=== PATIENT | male | born 1965 | race Caucasian/White ===

== ENCOUNTER → 2018-03-30 09:01 | Outpatient (CLI) | payer BC, SELFPAY ==
[2018-03-30 09:54] LABS: BUN 23 mg/dL (7-18); EST Glomerular Filtration Rate 74 mL/min (>60); Est Glom Filt Rate - Afr Amer 90 mL/min (>60)
== END ==
PROVIDERS: Family Provider Family Medicine; PCP Family Medicine; Visit Provider Otolaryngology
DX: E03.9 Hypothyroidism, unspecified (principal); C10.9 Malignant neoplasm of oropharynx, unspecified; R53.82 Chronic fatigue, unspecified; R63.4 Abnormal weight loss; R13.10 Dysphagia, unspecified
CPT/HCPCS: 36415; 82565; 84520

== ENCOUNTER 2018-06-11 19:15 | Emergency (ER) | payer BC, SELFPAY ==
[2018-06-11 19:16] VITALS: BP 126/93; PULSE 94; RESP 20; TEMP 37.4; O2SAT 90; BMI 20.7
--- NOTE | 2018-06-11 20:05 | CT_ITS ---
STUDY: CTA CHEST REASON FOR EXAM: Male, 53 years old. Right-sided chest pain, status post resection one month ago RADIATION DOSAGE (If Supplied By Facility): CTDIvol = ( 9.43 ) mGy, DLP = ( 450.31 ) mGycm TECHNIQUE: The examination was performed with the intravenous administration of 100 ml of Isovue 370 contrast material. Post-processing of the angiographic images was performed, with multiplanar reformation and 3D reconstruction. Individualized dose optimization techniques were used for this CT. COMPARISON: None. FINDINGS: Normal enhancement of the main pulmonary artery and right and left pulmonary arteries. Normal enhancement of the bilateral peripheral pulmonary arteries. There is no demonstrated pulmonary embolism. Normal thoracic aorta and visualized great vessels. There is no demonstrated aortic dissection. Normal heart and pericardium. Normal mediastinum. Normal hilar regions. Normal visualized trachea and bronchi. The lungs are well expanded. There is scarring of the right upper lobe. There are bronchiectatic changes of the right upper and lower lobes. There is a tree in bud appearance of the anterior and posterior right lower lobe with a micronodular appearance of the right lower lobe parenchyma. Normal pleura. Normal chest wall structures. There is mild diffuse endplate spondylosis of the visualized thoracolumbar spine. There is mild fullness of the left pelvicalyceal system. There are calcified splenic granulomas. CT/CTA Chest W/WO Contrast IMPRESSION: Normal CTA chest examination, without a demonstrated pulmonary embolism or arterial dissection. There is scarring of the right upper lobe. There are bronchiectatic changes of the right upper and lower lobes. There is a tree in bud appearance of the anterior and posterior right lower lobe with a micronodular appearance of the right lower lobe parenchyma. 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 There is mild fullness of the left pelvic calyceal system. There are calcified splenic granulomas. Electronically Signed: Alber Abernathy MD at 21:37 EDT , Service support ,
[2018-06-11 20:41] LABS: Absolute Lymphocyte Count 0.45 X10^3/ul (0.83-4.51); Absolute Neutrophil Count 8.8 X10^3/uL (2.0-7.7); Basophil# 0.02 X10^3/uL; Basophil% 0.2 % (0-1); Eosinophil# 0.02 X10^3/uL; Eosinophils% 0.2 % (0-5); Hematocrit 40.2 % (40-54); Hemoglobin 13.4 g/dl (13.0-16.5); Lymphocyte # 0.45 X10^3/ul (4.0); Lymphocyte % 4.3 % (19-41); Mean Corp Hgb Conc 33.3 g/gl (32-36); Mean Corpuscular Hgb 32.8 pg (27.0-32.0); Mean Corpuscular Volume 98.3 fL (80-94); Mean Platelet Vol. 10.4 fl (6.2-12.0); Monocyte# 1.13 X10^3/uL; Monocyte% 10.8 % (0-10); Neutrophil # 8.84 X10^3/uL (2.7-7.7); Neutrophil % 84.4 % (47-70); Platelet Count 222 K/mm3 (150-450); RBC Distribution Width CV 12.3 % (11.6-14.6); RBC Distribution Width SD 43.5 fl (35.1-43.9); Red Blood Count 4.09 M/mm3 (4.6-6.2); White Blood Count 10.5 K/mm3 (4.4-11.0)
[2018-06-11 20:42] LABS: Differential Indicated SCAN CRITERIA MET; POSITIVE COUNT NO; POSITIVE DIFFERENTIAL YES; POSITIVE MORPHOLOGY NO
[2018-06-11 20:49] LABS: Anion Gap 5 (5-15); BUN 22 mg/dL (7-18); BUN/Creat Ratio 22.5 RATIO (10-20); Calcium,Total 9.8 mg/dL (8.5-10.1); Chloride 100 mmol/L (98-107); Creatinine, Serum 0.98 mg/dL (0.70-1.30); EST Glomerular Filtration Rate 85 mL/min (>60); Est Glom Filt Rate - Afr Amer 103 mL/min (>60); Glucose 96 mg/dL (74-106); Potassium 4.2 mmol/L (3.5-5.1); Sodium Level 138 mmol/L (136-145)
[2018-06-11 21:15] LABS: Differential Comment SCANNED
[2018-06-11 21:36] VITALS: BP 142/81; PULSE 78; RESP 18; O2SAT 97
--- NOTE | 2018-06-11 22:05 | ED.DCSUM_ITS ---
- ER Visit Summary Date of Service: 06/11/18 Chief Complaint: Right lung pain History of Present Illness: The patient is a 53 M with a history of throat cancer. Patient has had surgery and had a partial right lung resection. Patient states he takes most of his intake through PEG tube, but does still swallow a few pills. On the fourth he had a pill get caught in his throat. He had a harsh cough and was seen at his primary care physician's office on the fifth. He was started on Augmentin for probable aspiration. Patient reports he is developed pain to the right lower ribs for the past 2 days. Physical Examination: Blood pressure is 126/93, temperature 99.3 TA, heart rate 94, respiratory rate 20, pulse ox 90% and room air in triage. At the time of my examination his temperature is 98.4 orally and his pulse ox is 98-99% on room air. Patient sitting upright in bed no acute distress. He is speaking full sentences. Head neck examination is grossly unremarkable. Heart is regular rate and rhythm. Lung sounds are clear. He has right lower anterior chest wall tenderness. There is no crepitus. Abdomen is soft and nontender. Test Results: CBC was normal white count with a slight left shift. Chemistry studies unremarkable. CTA of the chest shows no evidence of PE or dissection. There are bronchiectatic changes in the right upper and lower lobes. 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 Emergency Department Course and Treatment: Patient has maintained good oxygen saturation throughout his ED stay. Test results are discussed with him. Although we do not see evidence of a rib fracture, I did discuss with the patient that he may have cracked a rib from his coughing episodes. He will be treated with prednisolone via PEG tube to help with the bronchiectasis and he is to continue his antibiotics. Treatment Plan: [] Disposition: Discharge Impression: Bronchiectasis right lower lobe This note was generated with [employer] dictation software. It may contain incorrect words, spelling, and punctuation that were not noted in review of the chart prior to signing ED Disposition - Plan for ED Patient: Disposition: Home or Assisted Living Chief Complaint: Chest Other Prescriptions: Prednisolone 60 mg PO DAILY #5 days Referrals: Mary Hill MD [Primary Care Provider] - 5-7 Days
[2018-06-11 22:28] VITALS: BP 146/91; PULSE 81; O2SAT 96
== END 2018-06-11 22:30 | disposition home or self-care (01) ==
PROVIDERS: Emergency Provider Emergency Medicine; Family Provider Family Medicine; PCP Family Medicine
DX: J47.9 Bronchiectasis, uncomplicated (principal); E03.9 Hypothyroidism, unspecified; Z93.1 Gastrostomy status; Z87.01 Personal history of pneumonia (recurrent); Z85.818 Personal history of malignant neoplasm of other sites of lip, oral cavity, and pharynx; Z79.899 Other long term (current) drug therapy
CPT/HCPCS: 71275; 80048; 85025; 99283; Q9967; A4216

== ENCOUNTER → 2018-09-18 12:12 | Outpatient (CLI) | payer BC, SELFPAY ==
--- NOTE | 2018-09-18 12:15 | RAD_ITS ---
STUDY: X-RAY CHEST REASON FOR EXAM: Male, 53 years old. cough, congestion, right sided chest pain, recent lung CA diagnoses with part of right lung removed TECHNIQUE: PA and lateral views of the chest. COMPARISON: Chest x-ray July 22, 2017, chest CT June 11, 2018 FINDINGS: Emphysematous changes noted with hyperlucency particularly seen in association with the right lung apex. Superimposed upon this pattern is pulmonary parenchymal infiltrate most evident in the inferior right upper lobe and the right lower lobe laterally. There does appear mild elevation the right hemidiaphragm laterally which is new when compared to prior study perhaps related to the given history of lung surgery. There are anastomotic yael seen in association with the right upper lobe new since previous exam. Patchy airspace consolidations also seen in association with the left lower lobe inferiorly. This is new when compared to previous exam. There is no demonstrated pleural abnormality. Normal size heart. Normal mediastinum and dyan. Normal visualized pulmonary arteries. Normal visualized aortic arch and descending thoracic aorta. Normal visualized thoracic spine. Normal visualized ribs, clavicles, and shoulders. There is no demonstrated abnormality of the visualized soft tissue structures of the upper abdomen. RAD/Chest PA and Lateral IMPRESSION: Bilateral pulmonary infiltrates. I do suspect underlying infiltrate. The appearance is also progressive when compared to the tree-in-bud infiltrates the right lower lobe in June 2018. Follow-up to clearing recommended particularly in this patient who has a history of lung cancer. Electronically Signed: Dary Brand MD at 12:52 EST , Service support ,
--- OUTSIDE RECORDS SUMMARY | 2018-11-23 08:13 | XMS RPT_ITS ---
:1965 Author Organization OHIP Support Name Relationship Address Phone [employer] Unavailable [address] + [place] [address] TEE, KERI Unavailable [address] [facility] + [place] [address] TEE, SCHUYLER Unavailable Unavailable + [place], [place] TEE, KERI Unavailable Unavailable + TEE, KERI Unavailable Unavailable + TEE, KERI Unavailable Unavailable + TEE, KERI Unavailable Unavailable + TEE, KERI Unavailable Unavailable + TEE, KERI Unavailable Unavailable + TEE, KERI Unavailable Unavailable + TEE, KERI Unavailable Unavailable + [employer] Unavailable [address] + [place] [address] TEE, KERI Unavailable [address] [facility] + [place] [address] TEE, SCHUYLER Unavailable Unavailable + [place] TEE, KERI Unavailable Unavailable + TEE, KERI Unavailable Unavailable + TEE, KERI Unavailable Unavailable + TEE, KERI Unavailable Unavailable + TEE, KERI Unavailable Unavailable + TEE, KERI Unavailable Unavailable + TEE, KERI Unavailable Unavailable + TEE, KERI Unavailable Unavailable + TEE, KERI Unavailable Unavailable + TEE, KERI Unavailable Unavailable + TEE, KERI Unavailable Unavailable + TEE, KERI Unavailable Unavailable + TEE, KERI Unavailable Unavailable + TEE, KERI Unavailable Unavailable + TEE, KERI Unavailable Unavailable + TEE, KERI Unavailable Unavailable + TEE, KERI Unavailable Unavailable + TEE, KERI Unavailable Unavailable + [employer] Unavailable [address] + [place] [address] TEE, KERI Unavailable [address] + [place] [address] TEE, SCHUYLER Unavailable Unavailable + [place] TEE, KERI Unavailable Unavailable + TEE, KERI Unavailable Unavailable + TEE, KERI Unavailable Unavailable + TEE, KERI Unavailable Unavailable + TEE, KERI Unavailable Unavailable + TEE, KERI Unavailable Unavailable + Care Team Providers Name Role Phone DALE FORTUNE Attending Unavailable CHANTEERTDLAE Rutherford Referring Unavailable Jolliff, Mary Primary Care Unavailable Jolliff, Mary Primary Care Unavailable Paula Loving Attending Unavailable Jolliff, Mary Attending Unavailable Jolliff, Mary Referring Unavailable Jolliff, Mary Primary Care Unavailable Lavertu, Dr. Hunter Admitting Unavailable Lavertu, Dr. Hunter Attending Unavailable Lavertu, Dr. Hunter Referring Unavailable Jolliff, Mary [facility] Unavailable Lavertu, Dr. Hunter Attending Unavailable Jolliff, Mary [facility] Unavailable Lavertu, Dr. Hunter Admitting Unavailable Lavertu, Dr. Hunter Admitting Unavailable Lavertu, Dr. Hunter Attending Unavailable Jolliff, Mary [facility] Unavailable Lavertu, Dr. Hunter Attending Unavailable Jolliff, Mary [facility] Unavailable Lavertu, Dr. Hunter Attending Unavailable Jolliff, Mary [facility] Unavailable ISRRAEL, ZAIN Admitting Unavailable ISRRAEL, ZAIN Attending Unavailable Lavertu, Dr. Hunter Referring Unavailable Jolliff, Mary [facility] Unavailable ISRRAEL, ZAIN Admitting Unavailable ISRRAEL, ZAIN Attending Unavailable Lavertu, Dr. Hunter Referring Unavailable Jolliff, Mary [facility] Unavailable Lavertu, Dr. Hunter Admitting Unavailable Lavertu, Dr. Hunter Attending Unavailable Jolliff, Mary [facility] Unavailable ISRRAEL, ZAIN Attending Unavailable ISRRAEL, ZAIN Referring Unavailable Jolliff, Mary [facility] Unavailable ISRRAEL, ZAIN Admitting Unavailable ISRRAEL, ZAIN Attending Unavailable ISRRAEL, ZAIN Referring Unavailable Jolliff, Mary [facility] Unavailable ISRRAEL, ZAIN Admitting Unavailable ISRRAEL, ZAIN Attending Unavailable Lavertu, Dr. Hunter Referring Unavailable Jolliff, Mary [facility] Unavailable ISRRAEL, ZAIN Attending Unavailable Jolliff, Mary [facility] Unavailable Lavertu, Dr. Hunter Admitting Unavailable Lavertu, Dr. Hunter Attending Unavailable Jolliff, Mary [facility] Unavailable ISRRAEL, ZAIN Attending Unavailable Jolliff, Mary [facility] Unavailable ISRRAEL, ZAIN Attending Unavailable Lavertu, Dr. Hunter Referring Unavailable Jolliff, Mary [facility] Unavailable ISRRAEL, ZAIN Admitting Unavailable ISRRAEL, ZAIN Admitting Unavailable ISRRAEL, ZAIN Attending Unavailable Lavertu, Dr. Hunter Referring Unavailable Jolliff, Mary [facility] Unavailable PROBLEMS PROBLEMS DATE TYPE CONDITION / CODE ATTENDING STATUS SOURCE 09/18/2018 Unknown J20.9 - Acute Jolliff, Mary Active [facility] bronchitis, Community unspecified / Hospital J20.9(ICD-10) Repository 08/16/2018 Admitting Solitary pulmonary ISRRAEL, ZAIN Active [facility] diagnosis nodule / Hospitals R91.1(ICD-10) Repository 08/16/2018 Final diagnosis Solitary pulmonary ISRRAEL, ZAIN Active [facility] (discharge[facility] nodule / Hospitals R91.1(ICD-10) Repository 08/16/2018 Final diagnosis DysphagiaMarilee Dr. Active [facility] 08/16/2018 Final diagnosis Hypothyroidism, Dr. Marilee Active [facility] (discharge) unspecified / [facility] E03.9(ICD-10) Repository 08/16/2018 Final diagnosis Malignant neoplasm Dr. Marilee Active [facility] (discharge) of oropharynx, [facility] unspecified / Repository C10.9(ICD-10) 08/16/2018 Final diagnosis Impacted cerumen, Dr. Marilee Active [facility] (discharge) left ear / [facility] H61.22(ICD-10) Repository 05/17/2018 Final diagnosis Family history of ISRRAEL, ZAIN Active [facility] (discharge) malignant neoplasm, Hospitals unspecified / Repository Z80.9(ICD-10) 05/03/2018 Admitting Malignant neoplasm ISRRAEL, ZAIN Active [facility] diagnosis of upper lobe, right Hospitals bronchus or lung / Repository C34.11(ICD-10) 05/03/2018 Final diagnosis Malignant neoplasm ISRRAEL, ZAIN Active [facility] (discharge[facility] of upper lobe, right Hospitals bronchus or lung / Repository C34.11(ICD-10) 05/03/2018 Final diagnosis Acute ISRRAEL, ZAIN Active [facility] (dis[facility]) posthemorrhagic Hospitals anemia / D62(ICD-10) Repository 05/03/2018 Final diagnosis Personal history of ISRRAEL, ZAIN Active [facility] (dis[facility] malignant neoplasm Hospitals of tongue / Repository Z85.810(ICD-10) 05/03/2018 Final diagnosis Gastrostomy status / ISRRAEL, ZAIN Active [facility] (discharge) Z93.1(ICD-10) Hospitals Repository 05/03/2018 Final diagnosis Retention of urine, ISRRAEL, ZAIN Active [facility] (discharge[facility] unspecified / Hospitals R33.9(ICD-10) Repository 04/26/2018 Final diagnosis Abnormal weight loss ISRRAEL, ZAIN Active [facility] (discharge) / R63.4(ICD-10) Hospitals Repository 04/26/2018 Final diagnosis Radiation sickness, ISRRAEL, ZAIN Active [facility] (discharge) unspecified, initial Hospitals encounter / Repository T66.XXXA(ICD-10) 04/05/2018 Ad[address] Active [facility] diagnosis unspecified / [facility] R53.82(ICD-10) Repository 04/05/[address] Marilee Active Cong diagnosis of oropharynx, [facility] unspecified / Repository C10.9(ICD-10) 04/05/2018 Final diagnosis Chronic fatigue, Dr. Marilee Active [facility] (discharge[facility] unspecified / [facility] R53.82(ICD-10) Repository 03/30/2018 Unknown R53.82 - Chronic LAVERTU, Active [facility] fatigue, unspecified [facility] / R53.82(ICD-10) Hospital Repository 03/30/2018 Unknown E03.9 - LAVERTU, Active [place] Hypothyroidism, [facility] unspecified / Hospital E03.9(ICD-10) Repository 03/30/2018 Unknown C10.9 - Malignant LAVERTU, Active [facility] neoplasm of [facility] oropharynx, Hospital unspecified / Repository C10.9(ICD-10) 03/30/2018 Unknown R63.4 - [facility] weight loss / [facility] R63.4(ICD-10) Hospital Repository PROCEDURES PROCEDURES DATE CODE DESCRIPTION STATUS SOURCE 05/02/2018 [id number](ICD10- [id number] Completed [facility]) Hospitals Repository 05/02/2018 12L17WS(ICD10- 28W31ES Completed [facility]) Hospitals Repository 05/02/2018 6NO94CR(ICD10- 4WP13UN Completed [facility]) Hospitals Repository RESULTS RESULTS CHEST PA AND LATERAL Observed: 09/18/2018 Status: F Source: [place] 12:15 PM [facility] Imaging Services [address] [place] [id number] Chest PA and Lateral MR#: [id number] Acct: [id number] Name: JOANA TEE Rep #: [id number] : 1965 M 53 From: Dary Brand MD PCP: Mary Hill MD Status: REG CLI Study: Chest PA and Lateral Date of Exam: 09/18/18 Exam# [id number] Ordering Dr: Mary Hill MD STUDY: X-RAY CHEST REASON FOR EXAM: Male, 53 years old. cough, congestion, right sided chest pain, recent lung CA diagnoses with part of right lung removed TECHNIQUE: PA and lateral views of the chest. COMPARISON: Chest x-ray July 22, 2017, chest CT June 11, 2018 FINDINGS: Emphysematous changes noted with hyperlucency particularly seen in association with the right lung apex. Superimposed upon this pattern is pulmonary parenchymal infiltrate most evident in the inferior right upper lobe and the right lower lobe laterally. There does appear mild elevation the right hemidiaphragm laterally which is new when compared to prior study perhaps related to the given history of lung surgery. There are anastomotic yael seen in association with the right upper lobe new since previous exam. Patchy airspace consolidations also seen in association with the left lower lobe inferiorly. This is new when compared to previous exam. There is no demonstrated pleural abnormality. Normal size heart. Normal mediastinum and dyan. Normal visualized pulmonary arteries. Normal visualized aortic arch and descending thoracic aorta. Normal visualized thoracic spine. Normal visualized ribs, clavicles, and shoulders. There is no demonstrated abnormality of the visualized soft tissue structures of the upper abdomen. RAD/Chest PA and Lateral IMPRESSION: Bilateral pulmonary infiltrates. I do suspect underlying infiltrate. The appearance is also progressive when compared to the tree-in-bud infiltrates the right lower lobe in June 2018. Follow-up to clearing recommended particularly in this patient who has a history of lung cancer. 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 Review of Systems Constitutional: not feeling tired. Eyes: no eyesight problems. ENT: no hearing loss and no nosebleeds. Cardiovascular: as noted in HPI and no intermittent leg claudication. Respiratory: no chronic cough and no shortness of breath. Gastrointestinal: no change in bowel habits and no blood in stools. Genitourinary: no urinary frequency and no hematuria. Skin: no skin rashes. Neurological: no seizures and no frequent falls. Psychiatric: no depression and not suicidal. 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) Added by Problem List Migration; 2013-03-29; Moved to Suppressed Jul 26 2013 4:09PM Observation, malignant neoplasm, suspected (V71.1) (Z03.89) SILVIA on CPAP (327.23,V46.8) (G47.33,Z99.89) Preoperative clearance (V72.84) (Z01.818) Weight loss, unintentional (783.21) (R63.4) Family History Family history of malignant neoplasm (V16.9) (Z80.9) Family history of malignant neoplasm (V16.9) (Z80.9) Social History Denied: History of Drinking alcohol regularly, feeling guilty about it Never a smoker Denied: History of Smoker (305.1) (F17.200) Allergies Reglan SOLN Recorded By: Beverly Deleon; 09/19/2013 12:27:01 PM Current Meds Levothyroxine Sodium 75 MCG Oral Tablet; Therapy: [id number] to Recorded Rx By: FABIOLA; Dispense: 30 Days ; #:30; Refill: 0; PIEDAD = N; Record; Last Updated By: Quynh Tran; 08/16/2018 10:33:25 AM Vitals Vital Signs Recorded: [id number] 10:26AM Bmragzqgvvv66.2 F Heart Rate88 Iqdszzulagr16 Gbqrmpar677 Ofiawuwwc99 Blood Pressure Cuff SizeAdult Height5 ft 9 in Awpqir610 lb BMI Eescbhsafr21.27 BSA Calculated1.8 O2 Gignxugohy61 Pain Scale0 Physical Exam The patient is well-appearing and in no acute distress. Oral and nasal mucosa are clear. The neck had no cervical or supraclavicular adenopathy. The trachea and midline is without crepitus. The thyroid had no masses. There is no JVD. The lungs were clear to auscultation, there was no dullness to percussion, no fremitus or egophony. There was good effort and excursion. The heart had a regular rate and rhythm without murmurs, rubs or gallops. The abdomen was soft, nontender and nondistended, there was no palpable hepatosplenomegaly. The extremities had no cyanosis, clubbing, or edema. The skin was war m with no rashes, and there was good refill. The mood displayed no abnormalities. Gait was normal. His incisions are well-healed. 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 : Unknown Radiologist to Determine Optimal Study : Y What are the patient's signs and symptoms? : follow up Follow-up visit in 3 months Outpatient Follow-up/ CT prior Status: Hold For - Scheduling,Retrospective Authorization Requested for: [id number] Ordered Stat;For: Squamous cell carcinoma of right lung; Ordered By: Zain Arcos Performed: Due: 14Nov2018; Last Updated By: Glenda Rivas; 08/16/2018 10:57:20 AM Unlinked Continue: Levothyroxine Sodium 75 MCG Oral Tablet Rx By: FABIOLA; Dispense: 30 Days ; #:30; Refill: 0; PIEDAD = N; Record; Last Updated By: Quynh Tran; 08/16/2018 10:33:25 AM Provider Impressions This is a 53-year-old gentleman with history of squamous cell cancer of the tongue who on surveillance and follow-up CAT scan was found to have a solitary right upper lobe lesion which on May 02 8 and performed flexible bronchoscopy, right video-assisted thoracoscopy, right upper lobe wide wedge resection and mediastinal lymph node dissection. His pathology documented squamous cell cancer. We c ould not appreciate if it is a primary or secondary malignancy, but otherwise, his margins were negative with no lymph node involvement and he came today for follow-up of a new CT scan of his chest, judy chambers is in my readings. I could not see any new lesions or any local recurrence. I will wait for the final read from radiology. Otherwise, I will see him in 3 months for follow-up and surveillance with a new CT scan of his chest. Signatures Electronically signed by : Zain Arcos MD; Aug 16 2018 12:35PM EST (Author) REFERRAL LETTER Observed: 08/16/2018 Status: UNK Source: [place] 12:35 PM HOSPITALS REPOSITORY I had the pleasure of evaluating your patient JOANA TEE. My full evaluation follows: CT Chest without [id number] 09:12Zain Hall Test NameResultFlagReference CT Chest without Contrast Please click on the link to view the study images This is a 53-year-old gentleman with history of squamous cell cancer of the tongue who on surveillance and follow-up CAT scan was found to have a solitary right upper lobe lesion which on May 02 18 and performed flexible bronchoscopy, right video-assisted thoracoscopy, right upper lobe wide wedge resection and mediastinal lymph node dissection. His pathology documented squamous cell cancer. We could not appreciate if it is a primary or secondary malignancy, but otherwise, his margins were negative with no lymph node involvement and he came today for follow-up of a new CT scan of his chest, marry ayala is in my readings. I could not see any new lesions or any local recurrence. I will wait for the final read from radiology. Otherwise, I will see him in 3 months for follow-up and surveillance with a new CT scan of his chest. This note was created using speech recognition home help aide software. Despite proofreading, several typographical errors might be present that might affect the meaning of the content. Please call with any questions. Sincerely, Signatures Electronically signed by : Zain Arcos MD; Aug 16 2018 12:35PM EST (Author) CLINIC NOTE - Observed: 08/16/2018 Status: COMPLETED Source: [place] [facility] 10:55 AM HOSPITALS REPOSITORY Note Types: Note Type: Follow Up Note Author: Note Authored by: Registered Dietitian Costume Cutter (ELSY) Pager Number: [phone] Nutrition Note: The patient is a 53 year old Male with Right base of tongue cancer diagnosed in 2009, treated with surgery, chemo, radiation. patient now with Sq cell cancer of the lung- he underwent surgery for this with Dr. Arcos. He is under surveillance. Patient remains NPO and is PEG tube dependent. He does not have insurance coverage for his TF or supplies and continues to use the [employer], so his TF formulation may change from shipment to shipment. He is currently taking isosource 1.5. He is seeing Dr. Arcos today- for results of his CT scan. He also had a follow up with Dr. Fortune. Height/Weight: Height in feet: 5 feet Height in inches: 9 inch(es) Height in cm: 175.2 centimeter(s) Weight in lbs: 146.2 pound(s) Weight (kg): 66.3 BMI (kg/m2): 21.599 square meter DBW (kg): 72.7 %DBW: 91 Weight history/ % weight change: 08-04-2016 wt 158# 03-02-2017 wt 158# 03-01-2018 wt 139.7# 04-05-2018 wt 141# 04-26-18 wt 139.9#- weight essentially stable since February of 201808-16-18 wt 146.2#- patient with nice weight gain over the past 4 months- he reports he has been working hard to gain weight Lab Results: Results CBC date/time WBC HGB HCT PLT Neut 04-May-2018 04:09 N/A N/A N/A N/A N/A BMP date/time NA K CL CO2 BUN CREAT 04-May-2018 04:09 N/A N/A N/A N/A N/A N/A Hepatic date/time T Pro T Bili AST ALT ALKP ALB 20-May-2011 03:37 5.7(L) 0.8 14 18 60 3.4 LDH date/time LDH 04-May-2018 04:09 N/A No labs to note at time of documentation Allergies and Intolerances: Allergies: Reglan: Drug, Mood Alteration, Psychosis, Active Outpatient Medication/Rx Yoga Coordinator: * Patient Currently Takes Medications as of 03-May-2018 14:24 documented in Structured Notes oxyCODONE 5 mg/5 mL oral solution: 5 milliliter(s) orally every 6 hours, As Needed - for moderate pain, Start Date: 03-May-2018 docusate sodium 100 mg oral capsule: 1 cap(s) orally 2 times a day as needed for constipation, jqwp-sch-erjjkjy stool softener, Start Date: 03-May-2018 FLUoxetine 40 mg oral capsule: 1 cap(s) orally once a day levothyroxine 75 mcg (0.075 mg) oral tablet: 1 tab(s) orally once a day Food / Nutrition Related History: Intake: NPO GI Symptoms: none Oral Problems: dysphagia Mobility: normal activity, still working Food Allergies / Supplements: Food/Nutrition Related History: independent of product used he tries to achieve intake of 2700 calories per day when I met with patient in April his goal was about 2400 calories per day Other Physical Findings: Hair: negative Eyes: negative Nails: negative Edema: none Change in Metabolic Demand: yes Subjective Global Assessment Rating: malnutrition not present at this time Etiology: chronic illness Estimated Needs: kcals/day: 2700+ gms protein/day: 110-120 mL fluid/day: 5236-8896 Nutrition Diagnosis: Diagnosis1 resolved. Dx: Unintended weight loss. related to patient not having standard TF formula on a daily basis as well as potential increased metabolic demands as evidenced by use of [employer] for TF supplies and weight history as well as physical findings. Diagnosis2 ongoing. Dx: Swallowing difficulties. related to dysphagia associated with H&N cancer/tx as evidenced by continued dependence on PEG for nutrition support. Additional Assessment Information: No further weight loss- since February or so. TF changes remain tolerated. Despite efforts, still unable to get formula and supplies covered through insurance. Nutrition Interventions: Individualized Nutrition Prescription Provided for: enteral nutrition Enteral/Parenteral Nutrition Support: Insurance will not cover formula or supplies. Patient continues to rely on donations and the [employer]. He uses syringe for feeding. TF intake of 2700 calories per day appears acceptable and allows for weight gain at this time. Coordination of Care with: ENT Thoracic surgery Nutrition Goals: Nutrition Goals: adequate fluid intake, nutrition support goals are met, maintain stable weight, gradual weight gain Monitor Plan: Monitoring and Evaluation Plan: fluid intake/adequacy Nutrition Support tolerance/adequacy weight trend overall appearance Nutrition Education: Education Provided to: patient, family Anticipated Compliance: good Follow up: will follow as needed Electronic Signatures: Mary Strange (ELSY, BELEN) (Signed 16-Aug-2018 11:05) Authored: Nutrition Note Last Updated: 16-Aug-2018 11:05 by Mary Strange (ELSY, BELEN) TH CT CHEST WO Observed: 08/16/2018 Status: F Source: [facility] 9:12 AM HOSPITALS REPOSITORY Patient Name: JOANA TEE STUDY: CT CHEST WO CONTRAST; 08/16/2018 9:12 am INDICATION: Signs/Symptoms: follow up. History of right tongue squamous cell carcinoma status post chemo, radiation and surgery. Recent history of right upper lobe wedge resection for squamous cell carcinoma (primary vs mets). COMPARISON: CT chest abdomen pelvis dated 04/05/2018, CT chest dated 03/31/2011. ACCESSION NUMBER(S): [id number] ORDERING CLINICIAN: ZAIN ARCOS TECHNIQUE: Helical data acquisition of the chest was obtained without IV contrast material. Images were reformatted in axial, coronal, and sagittal planes. FINDINGS: LUNGS AND AIRWAYS: The trachea and central airways are patent. No endobronchial lesion. There is interval postsurgical change from wedge resection in the right upper lobe without evidence of residual disease or local recurrence. Linear densities in the bilateral lower lobes are likely atelectasis/scarring. There are scattered ground-glass opacities and ill-defined centrilobular nodule densities, predominantly in the bilateral lower lobes. There is no pleural effusion or pneumothorax. No evidence of new suspicious pulmonary nodule/mass. MEDIASTINUM AND DYAN, LOWER NECK AND AXILLA: The visualized thyroid gland is within normal limits. No evidence of thoracic lymphadenopathy by CT criteria. Esophagus appears within normal limits as seen. HEART AND VESSELS: The thoracic aorta is of normal course and caliber with mild vascular calcifications. Main pulmonary artery and its branches are normal in caliber. Minimal coronary artery calcifications present. The study is not optimized for evaluation of coronary arteries. The cardiac chambers are not enlarged. No evidence of pericardial effusion. UPPER ABDOMEN: The visualized subdiaphragmatic structures demonstrate no remarkable findings. Partially visualized percutaneous gastrostomy tube tip is in the gastric body. Accessory splenule is present. CHEST WALL AND OSSEOUS STRUCTURES: There is a 9 mm lucent lesion with sclerotic rim in the manubrium without aggressive osseous feature, likely benign. There are no suspicious osseous lesions or acute osseous change. Multilevel degenerative changes are present. Chest wall soft tissue is unremarkable. IMPRESSION: 1. Interval postsurgical change from wedge resection in the right upper lobe. No new suspicious nodule/mass. 2. Scattered ground-glass opacities and centrilobular nodular densities, predominantly in the bilateral lower lobes, nonspecific however could be secondary to chronic aspiration pneumonitis. Clinical correlation and attention on follow-up is recommended. I personally reviewed the images/study and I agree with the findings as stated. This study was interpreted at [facility], [place], [place]. Electronically signed by: LISA HUGHES MD ESTABLISHED VISIT Observed: 08/16/2018 Status: UNK Source: [place] (OTOLARYNGOLOGY) 8:50 AM HOSPITALS REPOSITORY Chief Complaint Follow up status post treatment of a base of tongue cancer History of Present Illness This patient first presented with a T4 N1 lesion of his right base of tongue back in March of 2010. He had persistent disease after chemoradiation and had surgery back in September of 2010. He denies any p ain or discomfort. He does have obstructive sleep apnea and uses his CPAP. He is also hypothyroid and is on Synthroid. He had a TSH level back in August 2017 which was normal. He also had a chest x-ra y at that time which was also normal. He is almost totally peg dependent. He has lost approximately 20 pounds recently. He complains of fatigue. Nothing really has changed from the head and neck point o f view. After his last visits and scanning he was found to have a lung lesion and ended up undergoing surgery. He had a squamous cell carcinoma. It could not be determined if this was a new primary or m etastatic disease. He seems to have recovered from this intervention. He is back to work. He is complaining of some discomfort around the right ear. Initial Fall Risk Screening: JOANA has not fallen in the last 6 months. His fall did not result in injury. JOANA does not have a fear of falling. He does not need assistance with sitting, standing or walking. Does not need assi stance walking in his home. He does not need assistance in an unfamiliar setting. The patient is not using an assistive device. Advance directives: Living Will: Living will on file. Placed in chart. Healthcare POA: Health care proxy on file. Placed in chart. 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) (C10.9) Added by Problem List Migration; 2013-03-29; Moved to Suppressed Jul 26 2013 4:09PM Observation, malignant neoplasm, suspected (V71.1) (Z03.89) SILVIA on CPAP (327.23,V46.8) (G47.33,Z99.89) Preoperative clearance (V72.84) (Z01.818) Weight loss, unintentional (783.21) (R63.4) Family History Family history of malignant neoplasm (V16.9) (Z80.9) Family history of malignant neoplasm (V16.9) (Z80.9) Social History Denied: History of Drinking alcohol regularly, feeling guilty about it Never a smoker Denied: History of Smoker (305.1) (F17.200) Allergies Reglan SOLN Recorded By: Beverly Deleon; 09/19/2013 12:27:01 PM Current Meds FLUoxetine HCl - 40 MG Oral Capsule; Therapy: (Recorded:[id number]) to Recorded Dispense: 0 Days ; #: Sufficient; Refill: 0; PIEDAD = N; Record; Last Updated By: Haleigh Mata; 04/26/2018 10:12:18 AM Levothyroxine Sodium 75 MCG Oral Tablet; Therapy: [id number] to Recorded Rx By: FABIOLA; Dispense: 30 Days ; #:30; Refill: 0; PIEDAD = N; Record; Last Updated By: Arlet Escoto; 08/04/2016 8:56:27 AM Vitals Vital Signs Recorded: 93Nsk2925 08:18AM Height5 ft 9 in Tuftga289 lb 2 oz BMI Ymkjblpxij05.58 BSA Calculated1.81 Physical Exam The ear examination shows some impacted cerumen on the left which was addressed with a small instrument. The eardrums look fine. Palpation of the temporomandibular joint is negative. At the same time th e patient does have significant malocclusion. Examination of the oral cavity and oropharynx shows the mobility of the right hemitongue. He does have a lot of pooling of secretions. He does have good man dibular excursion. There is no evidence of any mucosal lesions. A flexible laryngoscopy was carried out. Under topical Xylocaine and Saeid-Synephrine the scope was introduced through the nostril. The nasopharynx, base of tongue, hypopharynx, and larynx are visualized. The vocal cords are normally mobile. There is significant pooling of secretions in the pharynx. The area somewhat distorted because of the prior surgery. There is no evidence of any mucosal lesions. 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 Hypothyroidism which is controlled with Synthroid. A TSH will be obtained today Persistent dysphagia. The patient remains peg dependent. Recent surgery for squamous cell carcinoma in the lungs. It is not quite sure if this is a primary or metastatic disease. He is following up with his thoracic surgeon today. I will see him in 6 months. Patient Discussion/Summary No obvious evidence of any recurrence of the patient's previously treated oropharyngeal cancer. Hypothyroidism which is controlled with Synthroid. A TSH will be obtained today Persistent dysphagia. The patient remains peg dependent. Recent surgery for squamous cell carcinoma in the lungs. It is not quite sure if this is a primary or metastatic disease. He is following up with his thoracic surgeon today. I will see him in 6 months. Signatures Electronically signed by : Dale Fortune MD; Aug 16 2018 8:50AM EST (Author) TSH Collected: 08/16/2018 Status: F Source: [place] 8:46 AM HOSPITALS REPOSITORY TYPE CODE TESTS RESULT OUT OF RANGE REFERENCE UNITS LAB TSH2(LOINC) 0.44 - 3.98 mIU/L TSH 3.12 Result Comment: TSH testing is performed using different testing methodology at [facility] than at other [facility]. Direct result comparisons should only be made within the same method. . Patients receiving more than 5 mg/day of biotin may have interference in test results. A sample should be taken no sooner than eight hours after previous dose. Contact [phone] for additional information. Performed By: #### TSH2 #### [facility] [address] [address] EMERGENCY DEPARTMENT Observed: 06/12/2018 Status: F Source: [place] SUMMARY 2:48 AM [facility] Medical Records Department [address] [place] [address] Emergency Department Summary 06/11/18 2205 MR#: [id number] Acct: [id number] Name: JOANA TEE Rep #: [id number] : 1965 53 From: Paula Loving MD PCP: Mary Hill MD Status: DEP ER - ER Visit Summary Date of Service: 06/11/18 Chief Complaint: Right lung pain History of Present Illness: The patient is a 53 M with a history of throat cancer. Patient has had surgery and had a partial right lung resection. Patient states he takes most of his intake through PEG tube, but does still swallow a few pills. On the fourth he had a pill get caught in his throat. He had a harsh cough and was seen at his primary care physician's office on the fifth. He was started on Augmentin for probable aspiration. Patient reports he is developed pain to the right lower ribs for the past 2 days. Physical Examination: Blood pressure is 126/93, temperature 99.3 TA, heart rate 94, respiratory rate 20, pulse ox 90% and room air in triage. At the time of my examination his temperature is 98.4 orally and his pulse ox is 98-99% on room air. Patient sitting upright in bed no acute distress. He is speaking full sentences. Head neck examination is grossly unremarkable. Heart is regular rate and rhythm. Lung sounds are clear. He has right lower anterior chest wall tenderness. There is no crepitus. Abdomen is soft and nontender. Test Results: CBC was normal white count with a slight left shift. Chemistry studies unremarkable. CTA of the chest shows no evidence of PE or dissection. There are bronchiectatic changes in the right upper and lower lobes. 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 Emergency Department Course and Treatment: Patient has maintained good oxygen saturation throughout his ED stay. Test results are discussed with him. Although we do not see evidence of a rib fracture, I did discuss with the patient that he may have cracked a rib from his coughing episodes. He will be treated with prednisolone via PEG tube to help with the bronchiectasis and he is to continue his antibiotics. Treatment Plan: [] Disposition: Discharge Impression: Bronchiectasis right lower lobe This note was generated with [employer] dictation software. It may contain incorrect words, spelling, and punctuation that were not noted in review of the chart prior to signing ED Disposition - Plan for ED Patient: Disposition: Home or Assisted Living Chief Complaint: Chest Other Prescriptions: Prednisolone 60 mg PO DAILY #5 days Referrals: Mary Hill MD [Primary Care Provider] - 5-7 Days What to do if you have Problems For any increased pain, shortness of breath, bleeding, nausea or vomiting, chest pain, or any unexpected problems, contact your Primary Care Provider. Call [facility] ([phone]) or report to the closest Emergency Room. Call 911 if necessary. 06/12/18 0248 <Electronically signed by Paula Loving MD> Date Paula Loving MD Cosigner Signature (If Indicated): Date CC: Mary Hill MD DISCHARGE INSTRUCTION Observed: 06/11/2018 Status: F Source: [place] 10:07 PM [facility] HOSPITAL REPOSITORY [facility] Medical Records Department [address] [place] [address] Discharge Instruction 06/11/182204 MR#: [id number] Acct: [id number] Name: JOANA TEE Rep #: [id number] : 1965 53 From: Paula Loving MD PCP: Mary Hill MD Status: REG ER ED Disposition - Plan for ED Patient: Disposition: Home or Assisted Living Chief Complaint: Chest Other Prescriptions: Prednisolone 60 mg PO DAILY #5 days Referrals: Mary Hill MD [Primary Care Provider] - 5-7 Days What to do if you have Problems For any increased pain, shortness of breath, bleeding, nausea or vomiting, chest pain, or any unexpected problems, contact your Primary Care Provider. Call [facility] ([phone]) or report to the closest Emergency Room. Call 911 if necessary. 06/11/182206 <Electronically signed by Paula Loving MD> Date Paula Loving MD Cosigner Signature (If Indicated): Date CC: Mary Hill MD CBC W/DIFF, AUTOMATED Collected: 06/11/2018 Status: F Source: [place] 8:25 PM [facility] TYPE CODE TESTS RESULT OUT OF RANGE REFERENCE UNITS LAB L100.1000 4.4-11.0 K/mm3 Normal WBC 10.5 LAB L100.1200 4.6-6.2 M/mm3 Low RBC 4.09 LAB L100.1300 13.0-16.5 g/dl Normal HGB 13.4 LAB L100.1400 40-54 % Normal HCT 40.2 LAB L100.1500 80-94 fL High MCV 98.3 LAB L100.1600 27.0-32.0 pg High MCH 32.8 LAB L100.1700 32-36 g/gl Normal MCHC 33.3 LAB L100.1810 11.6-14.6 % Normal RDW CV 12.3 LAB L100.1820 35.1-43.9 fl Normal RDW SD 43.5 LAB L100.1900 150-450 K/mm3 Normal PLT 222 LAB L100.2000 6.2-12.0 fl Normal MPV 10.4 LAB L100.2100 47-70 % High NEUT% 84.4 LAB L100.2200 19-41 % Low LY% 4.3 LAB L100.2300 0-10 % High MONO% 10.8 LAB L100.2400 0-5 % Normal EO% 0.2 LAB L100.2500 0-1 % Normal BASO% 0.2 LAB L100.2550 0.0-0.9 % Normal IM GRAN % 0.100 Result Comment: IG% - Immature Granulocytes (promyelocytes, myelocytes and metamyelocytes) > 1% indicates that a LEFT SHIFT is Present. LAB L100.2620 2.0-7.7 X10 3/uL High Absolute Neut 8.8 LAB L100.2720 0.83-4.51 X10 3/ul Low Absolute Lymph 0.45 LAB L100.4500 Normal SMEAR COMMENT SCANNED Result Comment: LYMPHOPENIA NOTED Performed By: #### L100.0100 #### [facility] [address] [place], [address] BASIC METABOLIC Collected: 06/11/2018 Status: F Source: [place] PROFILE (BMP) 8:25 PM [facility] TYPE CODE TESTS RESULT OUT OF RANGE REFERENCE UNITS LAB L501.0100 74-106 mg/dL Normal GLU 96 Result Comment: Please note revised GLUCOSE reference range effective 2017. LAB L501.1000 7-18 mg/dL High BUN 22 LAB L501.1100 0.70-1.30 mg/dL Normal CREAT,SERUM 0.98 Result Comment: The validity of the calculated GFR AND GFRAA in patients over 70 years has not been determined. Clinical correlation is essential. LAB L501.1110 >60 mL/min Normal EST GFR 85 Result Comment: Non- GFR Calc LAB L501.1115 >60 mL/min Normal EST GFR - AA 103 Result Comment: GFR Calc LAB L501.1255 ml/min Normal Estimated CRCL 77.40 LAB L501.1300 10-20 RATIO High BUN/CRE 22.5 LAB L501.2200 8.5-10 mg/dL Normal .1 CA 9.8 LAB L501.5300 136-14 mmol/L Normal 5 NA 138 LAB L501.5600 3.5-5. mmol/L Normal 1 K 4.2 LAB L501.5900 98-107 mmol/L Normal CL 100 LAB L501.6100 21.0-3 mmol/L High 2.0 CO2 33.0 LAB L501.6200 5-15 Normal GAP 5 Performed By: #### L500.2500 #### [facility] [address] [facility] [place], [address] CTA CHEST W/WO Observed: 06/11/2018 Status: F Source: [place] CONTRAST 8:06 PM [facility] Imaging Services [address] [place] [address] CTA Chest W/WO Contrast MR#: [id number] Acct: [id number] Name: JOANA TEE Reinaldo Rep #: [id number] : 1965 M 53 From: Alber Abernathy MD PCP: Mary Hill MD Status: REG ER Study: CTA Chest W/WO Contrast Date of Exam: 06/11/18 Exam# [id number] Ordering Dr: Paula Loving MD STUDY: CTA CHEST REASON FOR EXAM: Male, 53 years old. Right-sided chest pain, status post resection one month ago RADIATION DOSAGE (If Supplied By Facility): CTDIvol = ( 9.43 ) mGy, DLP = ( 450.31 ) mGycm TECHNIQUE: The examination was performed with the intravenous administration of 100 ml of Isovue 370 contrast material. Post-processing of the angiographic images was performed, with multiplanar reformation and 3D reconstruction. Individualized dose optimization techniques were used for this CT. COMPARISON: None. FINDINGS: Normal enhancement of the main pulmonary artery and right and left pulmonary arteries. Normal enhancement of the bilateral peripheral pulmonary arteries. There is no demonstrated pulmonary embolism. Normal thoracic aorta and visualized great vessels. There is no demonstrated aortic dissection. Normal heart and pericardium. Normal mediastinum. Normal hilar regions. Normal visualized trachea and bronchi. The lungs are well expanded. There is scarring of the right upper lobe. There are bronchiectatic changes of the right upper and lower lobes. There is a tree in bud appearance of the anterior and posterior right lower lobe with a micronodular appearance of the right lower lobe parenchyma. Normal pleura. Normal chest wall structures. There is mild diffuse endplate spondylosis of the visualized thoracolumbar spine. There is mild fullness of the left pelvicalyceal system. There are calcified splenic granulomas. CT/CTA Chest W/WO Contrast IMPRESSION: Normal CTA chest examination, without a demonstrated pulmonary embolism or arterial dissection. There is scarring of the right upper lobe. There are bronchiectatic changes of the right upper and lower lobes. There is a tree in bud appearance of the anterior and posterior right lower lobe with a micronodular appearance of the right lower lobe parenchyma. 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 There is mild fullness of the left pelvic calyceal system. There are calcified splenic granulomas. 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 JOANA YODERcame today for postoperative check after thoracoscopic right upper lobe wedge resection and mediastinal lymph node dissection in patient with history of squamous cell cancer of the tong ue and squamous cell cancer in the lung versus solitary metastatic disease. Review of Systems Constitutional: not feeling tired. Eyes: no eyesight problems. ENT: no hearing loss and no nosebleeds. Cardiovascular: as noted in HPI and no intermittent leg claudication. Respiratory: no chronic cough and no shortness of breath. Gastrointestinal: no change in bowel habits and no blood in stools. Genitourinary: no urinary frequency and no hematuria. Skin: no skin rashes. Neurological: no seizures and no frequent falls. Psychiatric: no depression and not suicidal. 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) (C10.9) Added by Problem List Migration; 2013-03-29; Moved to Suppressed Jul 26 2013 4:09PM Observation, malignant neoplasm, suspected (V71.1) (Z03.89) SILVIA on CPAP (327.23,V46.8) (G47.33,Z99.89) Preoperative clearance (V72.84) (Z01.818) Weight loss, unintentional (783.21) (R63.4) Family History Family history of malignant neoplasm (V16.9) (Z80.9) Family history of malignant neoplasm (V16.9) (Z80.9) Social History Denied: History of Drinking alcohol regularly, feeling guilty about it Never a smoker Denied: History of Smoker Allergies Hoda CARPENTER Recorded By: Beverly Deleon; 09/19/2013 12:27:01 PM Current Meds FLUoxetine HCl - 40 MG Oral Capsule; Therapy: (Recorded:77Dzg7718) to Recorded Dispense: 0 Days ; #: Sufficient CAPS; Refill: 0; PIEDAD = N; Record; Last Updated By: Haleigh Mata; 04/26/2018 10:12:18 AM Levothyroxine Sodium 75 MCG Oral Tablet; Therapy: [id number] to Recorded Rx By: FABIOLA; Dispense: 30 Days ; #:30 TABS; Refill: 0; PIEDAD = N; Record; Last Updated By: Arlet Escoto; 08/04/2016 8:56:27 AM Vitals Vital Signs Recorded: 17May2018 11:06AM Txpaanjpjiv44.6 F Heart Rate59 Igijxdkjubu49 Jywywyjt164 Gwjfjclws43 Blood Pressure Cuff SizeAdult Height5 ft 9 in Rfnjgd920 lb BMI Oumyhzjjdh60.97 BSA Calculated1.79 O2 Ycdvaqhzig876 Pain Scale3/4 Physical Exam The patient is well-appearing and in no acute distress. Oral and nasal mucosa are clear. The neck had no cervical or supraclavicular adenopathy. The trachea and midline is without crepitus. The thyroid had no masses. There is no JVD. The lungs were clear to auscultation, there was no dullness to percussion, no fremitus or egophony. There was good effort and excursion. The heart had a regular rate and rhythm without murmurs, rubs or gallops. The abdomen was soft, nontender and nondistended, there was no palpable hepatosplenomegaly. The extremities had no cyanosis, clubbing, or edema. The skin was war m with no rashes, and there was good refill. The mood displayed no abnormalities. Gait was normal. His incisions are well-healed. Results/Data Surgical Qlhmrcivk24Jwb3508 12:00Zain Hall Test NameResultFlagReference Case Surgical Pathology(Report) Name JOANA TEE Pathologist: CINDY ALVARES MD Date of Procedure: 05/02/2018 Date Received: 05/02/2018 Date Reported 05/13/2018 Submitting Physician: ZAIN ARCOS MD Location: [facility] Other External # FINAL DIAGNOSIS A. LUNG, RIGHT UPPER LOBE, WEDGE RESECTION: -- SQ UAMOUS CELL CARCINOMA INVOLVING LUNG, SEE NOTE. Note: An immunostain for p40 is positive in tumor nuclei. An immunostain for TTF-1 is negative in tumor nuclei. The parenchymal margin is uninvolved. Vis ceral pleural invasion is present. Lymphovascular invasion is not identified. Whether this is primary or metastatic squamous cell carcinoma cannot be determined histologically. Recommend clinical correl ation. 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 B. LEVEL 7 LYMPH NODE, EXCISION: -- FRAGMENTS OF LYMPH NODE WITH NO EVIDENCE OF MALIGNANCY. C. LEVEL 9 LYMPH NODE, EXCISION: -- NO EVIDENCE OF MALIGNANCY IN ONE LYMPH NODE (0/1). Electronically Signed Out By CINDY ALVARES MD/MURTAZA By the signature on this re port, the individual or group listed as making the Final Interpretation/Diagnosis certifies that they have reviewed this case. Intraoperative Consultation: A: RIGHT UPPER LOBE WEDGE Frozen Section 1: Date Ordered: 05/02/2018 10:15 Date Received: 05/02/2018 10:15 Date Called: 05/02/2018 10:50 Intraoperative Diagnosis: FSA1: NON-SMALL CELL CARCINOMA; METASTATIC DISEASE CANNOT BE EXCLUDED. Intraop erative Consult Pathologist(s): GREGORIO URIAS MD (P) r/05/02/2018 Clinical History: Lung nodule; hx of SCC of tongue Specimens Submitted As: A: RIGHT UPPER LOBE WEDGE B: LEVEL 7 LYMPH NODE C : LEVEL 9 LYMPH NODE Gross Description: A: Received fresh for intraoperative consultation, labeled with the patient's name and hospital number, is a lung wedge, 6.8 x 3.0 x 1.7 cm, 8.40 grams. The ple ura is red-doherty, mottled lightly with black streaks, smooth, and glistening. Focally the pleura is thickened and puckered overlying a palpable mass. The pleural surface has been disrupted by the surgeon to obtain cultures. The pleural surface overlying the mass is inked black. The stapled parenchymal margin measures 9.3 cm in length. After removal of the staple line, this margin is inked blue. The spe cimen is sectioned. The cut surface reveals an irregular, well demarcated, yellow- white firm mass, 1.1 x 0.9 x 0.9 cm. The mass does not appear to invade the pleura. The tumor is 1.6 cm from the parenc hymal margin. The remainder of the cut surface is red-pink and crepitant. A portion of grossly unremarkable tissue was submitted to HTPF. A labor relations representative section of the nodule is submitted for frozen s ections. Heat Treater Head sections are submitted in 4 cassettes. KLR/PN B: Received in formalin, labeled with the patient's name and hospital number and level VII lymph node, are multiple possible lym ph nodes aggregating to 1.5 x 1.1 x 0.2 cm. The specimen is submitted in toto in one cassette. IAD C: Received in formalin, labeled with the patient's name and hospital number and level IX lymph node , is a possible lymph node measuring 1.1 x 0.2 x 0.2 cm. The specimen is submitted in toto in one cassette. IAD Summary of Cassettes: Specimen Label Site A 1FS nodule, labor relations representative 2 nodule, remainder 3 parenchymal margin closest to nodule, perpendicular 4 grossly unremarkable lung parenchyma iad/05/02/2018 The assays/tests were performed with appropriate positi ve and negative controls which stained appropriately. 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 I performed flexibl e bronchoscopy, right video-assisted thoracoscopy, right upper lobe wedge wedge resection and mediastinal lymph node dissection. His pathology documented squamous cell cancer. He was taken with good mar gins and the lymph node involvement. Unfortunately, the tumor markers was not helpful in deciding if it is a primary lung cancer versus metastatic disease from his urge cancer and I will present him in our tumor Board to decide about his adjuvant treatment. End of Encounter Meds FLUoxetine HCl - 40 MG Oral Capsule; Therapy: (Recorded:[id number]) to Recorded Levothyroxine Sodium 75 MCG Oral Tablet; Therapy: [id number] to Recorded Signatures Electronically signed by : Zain Arcos MD; May 17 2018 12:55PM EST (Author) REFERRAL LETTER Observed: 05/17/2018 Status: UNK Source: [place] 12:55 PM [facility]PITALS REPOSITORY I had the pleasure of evaluating your patient JOANA TEE. My full evaluation follows: Surgical [id number] 12:00Zain Hall Test NameResultFlagReference Case Surgical Pathology(Report) Name JOANA TEE Pathologist: CINDY ALVARES MD Date of Procedure: 05/02/2018 Date Received: 05/02/2018 Date Reported 05/13/2018 Submitting Physician: ZAIN ARCOS MD Location: [facility] Other External # FINAL DIAGNOSIS A. LUNG, RIGHT UPPER LOBE, WEDGE RESECTION: -- SQ UAMOUS CELL CARCINOMA INVOLVING LUNG, SEE NOTE. Note: An immunostain for p40 is positive in tumor nuclei. An immunostain for TTF-1 is negative in tumor nuclei. The parenchymal margin is uninvolved. Vis ceral pleural invasion is present. Lymphovascular invasion is not identified. Whether this is primary or metastatic squamous cell carcinoma cannot be determined histologically. Recommend clinical correl ation. 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 B. LEVEL 7 LYMPH NODE, EXCISION: -- FRAGMENTS OF LYMPH NODE WITH NO EVIDENCE OF MALIGNANCY. C. LEVEL 9 LYMPH NODE, EXCISION: -- NO EVIDENCE OF MALIGNANCY IN ONE LYMPH NODE (0/1). Electronically Signed Out By CINDY ALVARES MD/MURTAZA By the signature on this re port, the individual or group listed as making the Final Interpretation/Diagnosis certifies that they have reviewed this case. Intraoperative Consultation: A: RIGHT UPPER LOBE WEDGE Frozen Section 1: Date Ordered: 05/02/2018 10:15 Date Received: 05/02/2018 10:15 Date Called: 05/02/2018 10:50 Intraoperative Diagnosis: FSA1: NON-SMALL CELL CARCINOMA; METASTATIC DISEASE CANNOT BE EXCLUDED. Intraop erative Consult Pathologist(s): GREGORIO URIAS MD (P) klr/05/02/2018 Clinical History: Lung nodule; hx of SCC of tongue Specimens Submitted As: A: RIGHT UPPER LOBE WEDGE B: LEVEL 7 LYMPH NODE C : LEVEL 9 LYMPH NODE Gross Description: A: Received fresh for intraoperative consultation, labeled with the patient's name and hospital number, is a lung wedge, 6.8 x 3.0 x 1.7 cm, 8.40 grams. The ple ura is red-doherty, mottled lightly with black streaks, smooth, and glistening. Focally the pleura is thickened and puckered overlying a palpable mass. The pleural surface has been disrupted by the surgeon to obtain cultures. The pleural surface overlying the mass is inked black. The stapled parenchymal margin measures 9.3 cm in length. After removal of the staple line, this margin is inked blue. The spe cimen is sectioned. The cut surface reveals an irregular, well demarcated, yellow- white firm mass, 1.1 x 0.9 x 0.9 cm. The mass does not appear to invade the pleura. The tumor is 1.6 cm from the parenc hymal margin. The remainder of the cut surface is red-pink and crepitant. A portion of grossly unremarkable tissue was submitted to HTPF. A labor relations representative section of the nodule is submitted for frozen s ections. Heat Treater Head sections are submitted in 4 cassettes. KLR/PN B: Received in formalin, labeled with the patient's name and hospital number and level VII lymph node, are multiple possible lym ph nodes aggregating to 1.5 x 1.1 x 0.2 cm. The specimen is submitted in toto in one cassette. IAD C: Received in formalin, labeled with the patient's name and hospital number and level IX lymph node , is a possible lymph node measuring 1.1 x 0.2 x 0.2 cm. The specimen is submitted in toto in one cassette. IAD Summary of Cassettes: Specimen Label Site A 1FS nodule, labor relations representative 2 nodule, remainder 3 parenchymal margin closest to nodule, perpendicular 4 grossly unremarkable lung parenchyma iad/05/02/2018 The assays/tests were performed with appropriate positi ve and negative controls which stained appropriately. This is a 53-year-old gentleman with history of squamous cell cancer of the time was on follow-up CT scan was found to have solitary right upper lobe lesion which on May 02, 2018. I performed flexib le bronchoscopy, right video-assisted thoracoscopy, right upper lobe wedge wedge resection and mediastinal lymph node dissection. His pathology documented squamous cell cancer. He was taken with good ma rgins and the lymph node involvement. Unfortunately, the tumor markers was not helpful in deciding if it is a primary lung cancer versus metastatic disease from his urge cancer and I will present him in our tumor Board to decide about his adjuvant treatment. This note was created using speech recognition home help aide software. Despite proofreading, several typographical errors might be present that might affect the meaning of the content. Please call with any questions. Sincerely, End of Encounter Meds FLUoxetine HCl - 40 MG Oral Capsule; Therapy: (Recorded:[id number]) to Recorded Levothyroxine Sodium 75 MCG Oral Tablet; Therapy: [id number] to Recorded Signatures Electronically signed by : Zain Arcos MD; May 17 2018 12:55PM EST (Author) Reviewed by : Dale Fortune MD; May 17 2018 5:15PM EST TH CHEST 2 VIEW PA Observed: 05/17/2018 Status: F Source: [facility] 11:03 AM HOSPITALS REPOSITORY Patient Name: JOANA TEE STUDY: CHEST 2 VIEW PA AND LAT; 05/17/2018 11:03 am INDICATION: Signs/Symptoms: post op. COMPARISON: Chest radiograph 05/03/2018. ACCESSION NUMBER(S): [id number] ORDERING CLINICIAN: ZAIN ARCOS FINDINGS: CARDIOMEDIASTINAL SILHOUETTE: Cardiomediastinal silhouette is normal in size and configuration. LUNGS: The lungs are clear without focal consolidations, sizeable pleural effusions, or pneumothorax. ABDOMEN: No remarkable upper abdominal findings. BONES: No acute osseous changes. IMPRESSION: 1. No evidence of acute cardiopulmonary process. I personally reviewed the images/study and I agree with the findings as stated. This study was interpreted at [facility], [place], [place]. Electronically signed by: LISA HUGHES MD COAGULATION SCREEN Collected: 05/04/2018 Status: CANCELLED Source: [place] 12:30 [facility] REPOSIT[facility] Order Comment: TEST COAGULATION SCREEN WAS CANCELLED, 05/04/2018 04:30 ?Cancel Reason: Patient Discharged. TYPE CODE TESTS RESULT OUT OF REFERENCE UNITS RANGE LAB PT(LOINC) PROTHROMBIN TIME Canceled LAB INR(LOINC) PT, INR Canceled LAB APTT(LOINC ) APTT Canceled Result Comment: THE APTT IS NO LONGER USED FOR MONITORING UNFRACTIONATED HEPARIN THERAPY. FOR MONITORING HEPARIN THERAPY, USE THE HEPARIN ASSAY. Performed By: #### COADEMOND #### [facility] [address] [place] [address] CBC Collected: 05/04/2018 Status: CANCELLED Source: [place] 12:30 AM [facility] REPOSITORY Order Comment: TEST CBC WAS CANCELLED, 05/04/2018 04:30 ?Cancel Reason: Patient Discharged. TYPE CODE TESTS RESULT OUT OF REFERENCE UNITS RANGE LAB WBCR(LOINC ) WBC Canceled LAB NRBC(LOINC ) NUCLEATED RBC Canceled LAB RBCCT(LOIN C) RBC Canceled LAB HGB(LOINC) HGB Canceled LAB HCT(LOINC) HCT Canceled LAB MCV(LOINC) MCV Canceled LAB MCHC2(LOIN C) MCHC Canceled LAB PLTCT(LOIN C) PLT Canceled LAB RDWCV(LOIN C) RDW-CV Canceled Performed By: #### CBC #### [facility] [address] [place] [id number] BASIC METABOLIC PANEL Collected: 05/04/2018 Status: CANCELLED Source: [place] 12:30 [facility] Order Comment: TEST BASIC METABOLIC PANEL WAS CANCELLED, 05/04/2018 04:30 ?Cancel Reason: Patient Discharged. TYPE CODE TESTS RESULT OUT OF REFERENCE UNITS RANGE LAB GLU(LOINC) GLUCOSE Canceled LAB SOD(LOINC) SODIUM Canceled LAB K(LOINC) POTASSIUM Canceled LAB CHLOR(LOIN C) CHLORIDE Canceled LAB BIC(LOINC) BICARBONATE Canceled LAB ANGAP(LOIN C) ANION GAP Canceled LAB UREA(LOINC ) UREA NITROGEN Canceled LAB CREA(LOINC ) CREATININE Canceled LAB GFRFN(LOIN C) GFR-NON AM. Canceled LAB GFRAA(LOIN C) GFR- AM. Canceled Result Comment: CALCULATIONS OF ESTIMATED GFR ARE PERFORMED USING THE MDRD STUDY EQUATION FOR THE IDMS-TRACEABLE CREATININE METHODS. CLIN CHEM 2007;53:766-72 LAB CA(LOINC) Canceled CALCIUM Performed By: #### BMP #### [facility] [address] [place] [id number] MAGNESIUM Collected: 05/04/2018 Status: CANCELLED Source: [place] 12:30 [facility]ITALS REPOSITORY Order Comment: TEST MAGNESIUM WAS CANCELLED, 05/04/2018 04:30 ?Cancel Reason: Patient Discharged. TYPE CODE TESTS RESULT OUT OF REFERENCE UNITS RANGE LAB MG(LOINC) MAGNESIUM Canceled Performed By: #### MG #### [facility] [address] [place] [address] DISCHARGE SUMMARY Observed: 05/03/2018 Status: COMPLETED Source: [place] 4:17 PM HOSPITALS REPOSITORY Send Summary: Discharge Summary Providers: Provider RoleProvider Name ? AttendingZain Arcos ? Mary Knapp Note Recipients: Mary Hill MD - [id number] [] Zain Arcos MD Discharge: Summary: Admission Date: .02-May-2018 06:37:00 Discharge Date: 03-May-2018 Attending Physician at Discharge: Zain Arcos Admission Reason: lung nodule Final Discharge Diagnoses: Lung nodule Procedures: Date: 02-May-2018 11:32:00 Procedure Name: Flexible bronchoscopy, right upper lobe wedge resection Condition at Discharge: Satisfactory Disposition at Discharge: .Home Vital Signs: T PRBPSpO2 [id number]/6395% Date/Time05/03 15: 15: 15: 15: 15:04 Range(36.1C - 36.8C ) (69 - 83 ) (17 - 20 ) (90 - 102 )/ (52 - 63 ) (93% - 95% ) Hospital Course: This is a 53-year-old gentleman who has history of squamous cell cancer of the tongue, and on a floow-up chest CT was found to have a solitary right upper lobe lesion which was concerning for metastatic disease versus primary lung cancer. He was referred to Dr. Zain Arcos to evaluate for surgical resection. Elective OR done 05/02. His post-op convalescence was uneventful. His right pleural chest tube was removed on POD #1 without difficulty. He was weaned from supplemental oxygen, and his incisional discomfort was well managed with oral analgesics. Mr. Tee's home PEG tube feeding regimen was resumed without difficulty. He was deemed stable and ready for discharge to home on 05/03/18. Immunizations: Immunizations: 09-Sep-2010 .Pneumonia- Pneumococcal polysaccharide vaccine-adult: Immunizations, 09-Sep-2010 .Influenza- Influenza Virus: Immunizations, 09-Sep-2010 Discharge Information: and Continuing Care: Discharge Instructions: Activity: Activity as tolerated Continue increasing activity and using incentive spirometer, cough and deep breathe No flying for 3 weeks No jogging or heavy aerobics for 3 weeks No driving while on pain medications (narcotics) No pushing, pulling or lifting objects over 15 lbs for 3 weeks Nutrition/Diet: resume previous home bolus PEG feed regimen; may take oral diet medications as tolerated Wound Care: Maintain occlusive dressing intact on chest tube sites for 48 hours after last chest tube removal, then remove. Apply dry band- aid if any oozing May shower 48 hours after last chest tube removal No swimming or bath tub until incisions well healed, 1 week Cleanse incisions with soap and water daily. No dressing required; leave open to air. Do not use lotions, creams or tub soaks Notify thoracic surgery of redness, increased drainage, bleeding or other problems Follow Up Appointments: Follow-Up Appointment: Physician/Dept/Service: Dr. Zain Arcos Call to Schedule in: 2 weeks Discharge Medications: Home Medication FLUoxetine 40 mg oral capsule - 1 cap(s) orally once a day levothyroxine 75 mcg (0.075 mg) oral tablet - 1 tab(s) orally once a day docusate sodium 100 mg oral capsule - 1 cap(s) orally 2 times a day as needed for constipation; [id number] stool softener PRN Medication oxyCODONE 5 mg/5 mL oral solution - 5 milliliter(s) orally every 6 hours, As Needed - for moderate pain Lab Results - Pending: Culture, Acid Fast Bacilli, Misc.+ smear Drawn at 02-May-2018 12:48:00 Culture, Fungus +smear Drawn at 02-May-2018 12:48:00 Culture, Miscellaneous, includes smear Drawn at 02-May-2018 12:48:00 Surgical Pathology Drawn at 02-May-2018 00:00:00 Radiology Results - Pending: None Signature/Cosignature/Attestation: Comments/ Additional Findings discharge plans discussed with Dr. Zain Arcos Electronic Signatures: Milan Bird (SPORTS TEACHER-MARKETING DEVELOPMENT MANAGER) (Signed 03-May-2018 16:28) Authored: Send Summary, Summary Content, Immunizations, Ongoing Care, Signature/Cosignature/Attestation Last Updated: 03-May-2018 16:28 by Milan Bird (SPORTS TEACHER-MARKETING DEVELOPMENT MANAGER) TH CHEST 1 VIEW Observed: 05/03/2018 Status: F Source: [place] 10:24 AM HOSPITALS REPOSITORY Patient Name: JOANA TEE STUDY: TH CHEST 1 VIEW; 05/03/2018 10:24 am INDICATION: Signs/Symptoms: chest tube removal. COMPARISON: None. ACCESSION NUMBER(S): [id number] ORDERING CLINICIAN: MILAN BIRD FINDINGS: There has been interval removal of a right apical chest tube. CARDIOMEDIASTINAL SILHOUETTE: Cardiomediastinal silhouette is normal in size and configuration. LUNGS: Mild interstitial prominence is noted without james pulmonary edema. Otherwise, lungs are clear without focal consolidations, sizeable pleural effusions, or pneumothorax. ABDOMEN: No remarkable upper abdominal findings. BONES: No acute osseous changes. IMPRESSION: 1. Interval removal of right apical chest tube without sizable pneumothorax. 2. Stable perihilar congestion without james pulmonary edema. I personally reviewed the images/study and I agree with the findings as stated. This study was interpreted at [facility], [place], [place]. Electronically signed by: NEW CANTU MD DAILY PROGRESS Observed: 05/03/2018 Status: COMPLETED [facility] 9:27 AM [facility]OSPITALS REPOSITORY ESOPHAGEAL SURGERY Service: Thoracic & Esophageal Surgery Subjective Data: JOANA TEE is a 53 year old Male who is Hospital Day # 2 and POD #1 for Flexible bronchoscopy, right upper lobe wedge resection. Overnight Events: Acute events in the past 24 hours include Additional Information: sent from PACU to T-3 Objective Data: Objective Information: T PRBPSpO2 Value36.4329470/5693% Date/Time05/03 7: 7: 7: 7: 7:52 Range(36.1C - 36.8C ) (69 - 93 ) (17 - 22 ) (90 - 128 )/ (52 - 79 ) (93% - 98% ) As of 02-May-2018 14:54:00, patient is on 3 L/min of oxygen via nasal cannula. Pain with Activity reported at 05/02 20:45: 5 Pain at Rest reported at 05/02 20:45: 5 Weights 05/03 3:49: Weight in kg (Weight (kg)) 65.2 05/03 3:49: Weight in lbs ((lbs)) 143.8 05/02 14:41: BMI (kg/m2) (BMI (kg/m2)) 19.612 ---- Intake and Output ----- [facility] 03, 2018 6:00 [id number] May 02, 2018 10:00 [id number] May 02, 2018 2:00 [id number] The Intake and Output Totals for the last 24 hours are: IntakeOutputNet [id number] R CT: 130ml/since OR Physical Exam: Constitutional: A&Ox3; in NAD @ rest Respiratory/Thorax: BS are CTA bilat.; R CT x 1 to H2O seal-->no air leak Cardiovascular: S1S2, reg.; tele = SR 60's Gastrointestinal: BS are (+) x 4 quads; ABD is soft & NT/ND; PEG is intact Musculoskeletal: ROM intact, no joint swelling, normal strength Extremities: no LE edema Psychological: Appropriate mood and behavior Skin: R CT x 1 with drsg D&I Medication: Medications: Continuous Medications No continuous medications are active Scheduled Medications 1. Docusate: 100 mg Oral 2 Times a Day 2. FLUoxetine: 40 mg Oral Daily 3. Heparin SubCutaneous: 5000 unit(s) SubCutaneous Every 8 Hours 4. Levothyroxine - PEDS: 75 microgram(s) Oral Daily 5. Metoprolol Tartrate: 12.5 mg Oral Every 12 Hours 6. Pantoprazole: 20 mg Oral Daily PRN Medications 1. Acetaminophen: 650 mg Gastrostomy Tube Every 4 Hours 2. Bisacodyl Enteric Coated: 10 mg Oral Daily 3. Magnesium Hydroxide Oral Liquid CONCENTRATE: 10 mL Oral Every 24 Hours 4. Naloxone Injectable: 0.2 mg IntraVenous Push Once 5. Ondansetron Injectable: 4 mg IntraVenous Push Every 6 Hours 6. oxyCODONE Immediate Release: 5 mg Oral Every 4 Hours Recent Lab Results: Results: I have reviewed these laboratory results: Complete Blood Count 03-May-2018 06:40:00 ResultValue White Blood Cell Count 8.1 Nucleated Erythrocyte Count 0.0 Red Blood Cell Count 3.33 L HGB 11.2 L HCT 33.7 L MCV 101 H MCHC 33.2 PLT 175 RDW-CV 12.7 Coagulation Screen 03-May-2018 06:40:00 ResultValue Prothrombin Time, Plasma 12.3 International Normalized Ratio, Plasma 1.1 Activated Partial Thromboplastin Time 25 Basic Metabolic Panel 03-May-2018 06:40:00 ResultValue Glucose, Serum 142 H NA 139 K 4.5 CL 102 Bicarbonate, Serum 30 Anion Gap, Serum 12 BUN 26 H CREAT 0.92 GFR-Non >60 GFR- >60 Calcium, Serum 9.4 Magnesium, Serum 03-May-2018 06:40:00 ResultValue Magnesium, Serum 2.33 Culture, Miscellaneous, includes smear 02-May-2018 12:48:00 ResultValue Gram Stain NO GRANULOCYTES OR ORGANISMS SEEN. Culture, Miscellaneous, includes smear NO GROWTH, CULTURE IN PROGRESS. Culture, Fungus +smear 02-May-2018 12:48:00 ResultValue Fungal Smear FLUORESCENT FUNGAL STAIN: NEGATIVE Culture, Fungus +smear CULTURE IS IN PROGRESS A REPORT WILL BE ISSUED EITHER WHEN POSITIVE OR AFTER TWO WEEKS INCUBATION. Assessment and Plan: Assessment: JOANA TEE is a 53 year old Male who is Hospital Day #2 and POD #1 for Flexible bronchoscopy, right upper lobe wedge resection Impression 1: post-op recovery Plan for Impression 1: -increase activity, pulm. toileting, wean O2 as mika. -check daily labs & CXR -con't GI & DVT prophylaxis -OK for PO as tolerated (including small pills); pt. has PEG feeding tubes Impression 2: chest tube management Plan for Impression 2: -no air leak noted & output has not been excessive -CT removed w/o difficulty -check CXR post-removal Impression 3: incisional discomfort Plan for Impression 3: -well controlled at present -d/c ELEVATOR SUPERVISOR & try PO analgesics PRN -bowel regimen while taking narcotics Impression 4: hypothyroidism Plan for Impression 4: -con't Levothyroxine from home routine Impression 5: Hx: neoplasm of oropharynx Plan for Impression 5: -OK for meds & PO intake as tolerated -con't home routine of bolus PEG feeds Impression 6: acute post-surgical blood loss anemia Plan for Impression 6: -H&H decreased from pre-op (not unexpected) -no indication for transfusion of PRBCs Impression 7: post-op urinary retention Plan for Impression 7: -straight cath x 1 overnight -await spontaneous void today -hold off on medications for now (unless Valentine would need to be re-inserted) Impression 8: dispo Plan for Impression 8: -anticipated d/c to home later today if CXR stable -planned f/u with Dr. Arcos in 1-2 weeks SCIP Measures: Urinary Catheter Removed Post-Op Day 2: N/A, patient does not have urinary catheter Patient on Beta Sherrie Prior to Admission: no Prophylactic antibiotics scheduled to be discontinued with 24 hr of anesthesia end time (48 hr for cardiac surgery): N/A, patient not on prophylactic antibiotics Signature/Cosignature/Attestation: Comments/ Additional Findings case d/w Dr. Arcos Electronic Signatures: Milan Bird (SPORTS TEACHER-MARKETING DEVELOPMENT MANAGER) (Signed 03-May-2018 10:44) Authored: Service, Subjective Data, Objective Data, Assessment and Plan, SCIP Measures, Signature/Cosignature/Attestation Last Updated: 03-May-2018 10:44 by Milan Bird (SPORTS TEACHER-MARKETING DEVELOPMENT MANAGER) CBC Collected: 05/03/2018 Status: F Source: [place] 6:40 AM HOSPITALS REPOSITORY TYPE CODE TESTS RESULT OUT OF REFERENCE UNITS RANGE LAB WBCR(LOINC 4.4 - 11.3 x10E9/L ) WBC 8.1 LAB NRBC(LOINC 0.0-0.0 /100 WBC ) NUCLEATED RBC 0.0 LAB RBCCT(LOIN 4.50 - 5.90 x10E12/L C) Low RBC 3.33 LAB HGB(LOINC) 13.5 - 17.5 g/dL Low HGB 11.2 LAB HCT(LOINC) 41.0 - 52.0 % Low HCT 33.7 LAB MCV(LOINC) 80 - 100 fL MCV High 101 LAB MCHC2(LOIN 32.0 - 36.0 g/dL C) MCHC 33.2 LAB PLTCT(LOIN 150 - 450 x10E9/L C) PLT 175 LAB RDWCV(LOIN 11.5 - 14.5 % C) RDW-CV 12.7 Performed By: #### CBC #### [facility] [address] [place] [address] COAGULATION SCREEN Collected: 05/03/2018 Status: F Source: [place] 6:40 [facility]PITALS REPOSITORY TYPE CODE TESTS RESULT OUT OF REFERENCE UNITS RANGE LAB PT(LOINC) 9.8 - 12.7 sec PROTHROMBIN TIME 12.3 LAB INR(LOINC) 0.9 - 1.1 PT, INR 1.1 LAB APTT(LOINC 25 - 36 sec ) APTT 25 Result Comment: THE APTT IS NO LONGER USED FOR MONITORING UNFRACTIONATED HEPARIN THERAPY. FOR MONITORING HEPARIN THERAPY, USE THE HEPARIN ASSAY. Performed By: #### COAGS #### [facility] [address] [place] [id number] MAGNESIUM Collected: 05/03/2018 Status: F Source: [place] 6:40 [facility] REPOSITORY TYPE CODE TESTS RESULT OUT OF REFERENCE UNITS RANGE LAB MG(LOINC) 1.60 - 2.40 mg/dL MAGNESIUM 2.33 Performed By: #### MG #### [facility] [address] [place] [address] BASIC METABOLIC PANEL Collected: 05/03/2018 Status: F Source: [place] [address] [place] [address] REPOSITORY TYPE CODE TESTS RESULT OUT OF REFERENCE UNITS RANGE LAB GLU(LOINC) 74 - 99 mg/dL GLUCOSE High 142 LAB SOD(LOINC) 136 - 145 mmol/L SODIUM 139 LAB K(LOINC) 3.5 - 5.3 mmol/L POTASSIUM 4.5 LAB CHLOR(LOIN 98 - 107 mmol/L C) CHLORIDE 102 LAB BIC(LOINC) 21 - 32 mmol/L BICARBONATE 30 LAB ANGAP(LOIN 10 - 20 mmol/L C) ANION GAP 12 LAB UREA(LOINC 6 - 23 mg/dL ) UREA High NITROGEN 26 LAB CREA(LOINC 0.50 - 1.30 mg/dL ) CREATININE 0.92 LAB GFRFN(LOIN >60 mL/min/1.7 C) 3m2 GFR-NON AM. >60 LAB GFRAA(LOIN >60 mL/min/1.7 C) 3m2 GFR- AM. >60 Result Comment: CALCULATIONS OF ESTIMATED GFR ARE PERFORMED USING THE MDRD STUDY EQUATION FOR THE IDMS-TRACEABLE CREATININE METHODS. CLIN CHEM 2007;53:766-72 LAB CA(LOINC) 8.6 - 10.6 mg/dL CALCIUM 9.4 Performed By: #### BMP #### [facility] [address] [place] [address] TH CHEST 1 VIEW Observed: 05/03/2018 Status: F Source: [place] 4:13 AM HOSPITALS REPOSITORY Patient Name: JOANA TEE STUDY: TH CHEST 1 VIEW; 05/03/2018 4:13 am INDICATION: Signs/Symptoms: s/p RUL wedge resection, eval for PTX. COMPARISON: Chest radiograph 05/02/2018. ACCESSION NUMBER(S): [id number] ORDERING CLINICIAN: NAV ZAPATA FINDINGS: Tip of right-sided chest tube projects within the right apex. CARDIOMEDIASTINAL SILHOUETTE: Cardiomediastinal silhouette is normal in size and configuration. LUNGS: Slightly prominent interstitial markings are again noted. No definitive focal consolidation, pleural effusion, or pneumothorax is seen. ABDOMEN: No remarkable upper abdominal findings. BONES: No acute osseous changes. IMPRESSION: 1. Stable postsurgical changes of the right lung with right apical chest tube without sizable pneumothorax. 2. Perihilar congestion with no james edema. I personally reviewed the images/study and I agree with the findings as stated. This study was interpreted at [facility], [place], [place]. Electronically signed by: NEW CANTU MD DISCHARGE PROFILE2 Observed: 05/02/2018 Status: UNK Source: [place] 4:42 PM [facility]OSPITALS REPOSITORY Discharge Orders: Anticipated Discharge Date: ? Anticipated Discharge [id number] Thoracic: Activity: - Activity as tolerated. - Continue increasing activity and using incentive spirometer, cough and deep breathe. - No flying for 3 weeks. - No jogging or heavy aerobics for 3 weeks. - No driving while on pain medications (narcotics). - No pushing, pulling or lifting objects over 15 lbs for 3 weeks. Wound Care: - Maintain occlusive dressing intact on chest tube sites for 48 hours after last chest tube removal, then remove. Apply dry band-aid if any oozing. - May shower 48 hours after last chest tube removal. - No swimming or bath tub until incisions well healed, 1 week. - Cleanse incisions with soap and water daily. No dressing required; leave open to air. Do not use lotions, creams or tub soaks. - Notify thoracic surgery of redness, increased drainage, bleeding or other problems. Patient Instructions: - Return to emergency room for severe chest pain or shortness of breath. Diet: resume previous home bolus PEG feed regimen; may take oral diet & medications as tolerated. Follow-Up Appointment: ? Physician/Dept/MartinDr. Zain Arcos ? Call to Schedule in2 weeks ? Phone [phone] ? Commentsplease call to schedule an appointment with a chest x-ray prior to office visit Provider FINAL REVIEW of Orders: Final Review: ? Final Review of Medication Reconciliation and Orders Completedby SPORTS TEACHER ? Reviewing ProviderMILEY Mitchell at 03-May-2018 11:42:59 Electronic Signatures: Aliya Car (CLIN COOR) (Signed 03-May-2018 13:52) Authored: Discharge Orders, Gold Form - Optical Mechanic Apprentice Summary Milan Bird (SPORTS TEACHER-MARKETING DEVELOPMENT MANAGER) (Signed 03-May-2018 11:42) Authored: Thoracic, Provider FINAL REVIEW of Orders Last Updated: 03-May-2018 13:52 by Aliya Car (CLIN COOR) DISCHARGE PLANNING Observed: 05/02/2018 Status: UNK Source: [facility] 4:36 PM HOSPITALS REPOSITORY Discharge Needs Assessment: ? Discharge Planning Assessment [id number] ? Discharge Planning Assessment Completed byPrince Car RN CC Adult Information: ? Lives Withspouse ? Financial Concernsnone Patient Learning: ? Factors that Impact Ability to Learnnone(1) Other Factors: ? Functional Screen: In the recent/past 2-4 weeks, patient or family have noticedno issues that require a rehabilitation consult at this time(2) Discharge Needs: ? Anticipated Discharge Facility/Level of Care NeedsHome Discharge Planning: Discharge Planning: Plant Operations Manager Note: 05/03/2018. Met with patient to discuss discharge planning. Patient is a 53 year old male from home s/p a Flexible Bronch. Patient lives with family. Independent in all ADL'.s Requires no assist devices for ambulation. Patient does feel safe at home and denies any issues with making follow up appointments or getting her medications. Patient denies being a diabetic. No forms of dialysis. Patient denies prior home care. No home oxygen or CPAP machine. Primary care is managed by Dr. Mary Vivar. Local pharmacy [place], [place]. Will continue to monitor patient for all home going needs. Prince Car RN CC Discharge Note 05/03/18 RN reviewed DC orders with pt. Answered all questions about medications, wound care, etc. Pt verbalized understanding. Tele and IV DC'd, cath intact. Pt has all scripts and belongings. Transported to [facility] via wheelchair. Chelsey Bender RN. Final Disposition/Discharge: Disposition/Discharge Information: Discharge/Transfer Information: ? Discharge/Transfer Date/[id number] 16:30 ? Discharged Accompanied Byfriend ? Discharge Modewheelchair ? Transportation Methodprivate car ? Final DispositionHome Electronic Signatures: Chelsey Bender (RN) (Signed 03-May-2018 16:56) Authored: Discharge Planning Note, Final Disposition/Discharge Aliya Car (CLIN COOR) (Signed 03-May-2018 12:30) Authored: Discharge Planning Note Last Updated: 03-May-2018 16:56 by Chelsey Bender (RN) References: 1. Data Referenced From 5. Education 05/02/2018 02:32 PM 2. Data Referenced From Admission Risk Screen - Adult 05/02/2018 02:32 PM PATIENT PROFILE - Observed: 05/02/2018 Status: UNK Source: [place] ADULT V2 2:41 PM HOSPITALS REPOSITORY Profile: Initial Info: How to be AddressedRick Spoken Language PreferredEnglish (1) Are you currently using the Personal Electronic Health Record or [facility] (1) Stated Reason for Admissionsurgery Arrived FromOR Patient Belongingsremains with patient Medications Brought to Hospitalno General Health: Weight in kg62 kilogram(s) Weight in djq027.6 pound(s) Height in cm177.8 centimeter(s) BMI (kg/m2)19.612 square meter Weight Methodstated Scale Typebed Height Methodstated Blood Avoidance/Restrictionsnone(1) Previous Transfusion Reactionno(1) RSP Based Care: How would you like to participate in your care?bedside report What is the number one concern for you during this hospitalization?getting better and going home What is the most important thing we can do to support you during this hospitalization?communicate plans Is there anything we need to know to best care for you?nothing at this time Substance: Current or Former Substance Use never: Cigarette/Tobacco(1), Alcohol(1), Street Drugs(1) Health Mgmt: Symptoms/Conditions Managed at [place] Barriers to Managing Healthnone Relationship/Environ: Primary Source of Support/Comfortspouse Lives Withspouse; adult child(evie); dependent child(evie) Living Arrangementshouse Resource/Environmental Concernsnone Anticipated Transition [place] Services Anticipated at Transitionnone Significant IndicatorsComplete Information Review: ? Allergies, Home Meds and Significant Events have been Reviewed and Verified with Patient/Familyyes ALLERGY, INTOLERANCE, ADVERSE EVENT: Allergies: ? Reglan: Drug, Mood Alteration, Psychosis, Active Electronic Signatures: Katie Solis (RN) (Signed 02-May-2018 14:45) Authored: Profile, Additional Information Last Updated: 02-May-2018 14:45 by Katie Solis (LITZY) References: 1. Data Referenced From Patient Profile - Preop v2 05/02/2018 8:00 AM ADMISSION RISK SCREEN Observed: 05/02/2018 Status: UNK Source: [facility] ADULT 2:32 PM HOSPITALS REPOSITORY Allergies: Allergies: ? Reglan: Mood Alteration, Psychosis Patient Verification: ? New W ID Band Applied in my Departmentno ? Type of ID Patient is WearingW wristband, but not applied here ? Patient Transferred from Other Facility ([facility], [facility],etc)no ? Patient Identity Verified Bypatient ? ID Band FULL Name, include Middle, spelling matches patient's ID used for verificationyes ? ID Band Matches Patient ID used for Verficationyes ? ID Band MRN Matches EMR MRNyes Advance Directive: ? Advance Directive Medicalyes (1) ? Advance Directive typeLiving Will, Durable Power of Clinical Application Consultant for Healthcare(1) ? Living Will AvailabilityLiving Will not available now ? Living Will [id number] ? Durable Power of Clinical Application Consultant AvailabilityDPOA not available now ? Durable Power of Clinical Application Consultant [id number] ? Durable Power of Clinical Application Consultant contact (name and number) Keri(1) Falls Screen: Type of Assessmentadmission Moderate Risk Factorspatient care equipment (scds, iv?s, chest tubes, valentine, etc) High Risk Factorssymptoms due to meds (sedatives, hypnotics, new diuretics and new laxatives) Risk for Injury Associated with Fallrisk of surgical complications post surgery (recent abdominal, thoracic surgery, lower limb amputation) Fall Risk Conclusionhigh falls risk with risk for associated injury Bo[place] D Arc Safety InterventionsWDL *orient to call system *instruct to call for assistance before getting out of bed *non-slip footwear when patient is out of bed *call hernandez in reach *personal items and telephone in reach *physically safe environment (no spills or clutter) *bed in lowest position with wheels locked *appropriate side rails in place *room/bathroom lighting operational, light cord in reach *appropriate signage on door Fall and Injury Risk Interventionssupervised toileting (mandatory for all high risk patients), collaborate with team for PT/OT consult/ambulatory aids, educate pt/family, monitor med side effects, consult Pharmacy, individualized toileting schedule, educate patient/family for risk for injury (fractures and bleeding) Family Violence Screen: ? Are you or have you been threatened or abused physically, emotionally, or sexually by anyone?no ? Do you feel UNSAFE going back to the place where you are living?no ? Do you feel anyone has exploited or taken advantage of you financially or of your personal property?no ? Clinical assessment: Are there any apparent signs of injuries/behaviors that could be related to abuse/neglectno ? Social Service Consult for abuse/neglect needed this visit?no Functional screen: ? Functional Screen: In the recent/past 2-4 weeks, patient or family have noticedno issues that require a rehabilitation consult at this time Learning Assessment (Patient): ? Patient is Able to be Assessed for Learningyes ? Factors Influencing Readiness to Learnfatigue; pain ? Factors that Impact Ability to Learnnone ? Devices/Methods Used to Communicateglasses ? Learning Preferencesindividual instruction ? Cultural Considerationsnone ? Developmental Considerationsnone ? Hinduism Considerationsnone Learning Assessment (Other Learner): ? Other learner availableno Suicide/Depression Screen: ? During the past month, have you often been bothered by feeling down, depressed or hopeless?no (1) ? During the past month, have you often had little interest or pleasure in doing things?no (1) ? Have you had any thoughts of harming yourself?no (1) ? Have you had any thoughts of harming anyone else?no (1) Adult Nutrition Screen: ? Have you recently lost weight without tryingno ? Have you been eating poorly because of a decreased appetiteno ? MST Score0 ? RiskMST = 0 or 1 Not at risk. Eating well with little or no weight loss ? Additional Risk (Order Nutrition Consult)tube feeding or parenteral nutrition ? Nutrition Consult needed this visit?no ? Can Patient Participate in Room Service?yes ? Patient requires Paper Dishes/Plastic Utensilsno Pain Screen: ? Pain Scalenumerical 0-10 (1) ? Pain Scale Educationteaching provided (1) ? Current Pain Level0 = None ? Acceptable Pain Level5 = Moderate ? Expression of Pain (nonverbal)none ? Chronic Painno (1) Spiritual Screen: ? Are there any cultural, spiritual, hoahaoism practices/values/needs that are important for us to know?no CAGE: Is this an injured patient at a Trauma Center ([facility]): no Vaccinations: Vaccination - Influenza Vaccination Screen: ? Is it flu season? (between and )No Vaccination - Pneumonia Vaccination Screen: ? Patient has received a previous pneumonia vaccine:yes Marcello: Skin - Marcello Scale: ? Marcello: Sensory Perception (response to environment)(4) no impairment ? Marcello: Moisture (degree skin exposed to moisture)(4) rarely moist ? Marcello: Activity (ability to walk)(3) walks occasionally ? Marcello: Mobility (amount/control of body movement)(3) slightly limited ? Marcello: Nutrition (quality of food intake)(2) probably inadequate ? Marcello: Friction and Shear(3) no apparent problem ? Marcello: Score19 Significant Indicatiors: Significant Indicators: Complete Pressure Injury: Pressure Injury Present on Admissionno Electronic Signatures: Katie Solis (LITZY) (Signed 02-May-2018 14:39) Authored: Admission Risk Screens, Vaccinations, Marcello, Pressure Injury Last Updated: 02-May-2018 14:39 by Katie Solis (LITZY) References: 1. Data Referenced From Patient Profile - Preop v2 05/02/2018 8:00 AM Observed: 05/02/2018 Status: F Source: [facility] MISCELLANEOUS 12:48 PM HOSPITALS REPOSITORY CULT./SM.BACT. PATIENT: JOANA TEE LOCATION: [place] [address] BILL#: [id number] : 63 AGE: SEX: M ORDERED BY: ZAIN ARCOS SOURCE: BIOPSY COLLECTED: 05/02/18 12:48 ANTIBIOTICS AT JUDY.: RECEIVED : 05/02/18 12:51 SITE: RT UPPER LOBE WEDGE R E S U L T S GRAM STAIN FINAL 05/02/18 15:00 NO GRANULOCYTES OR ORGANISMS SEEN. MISCELLANEOUS CULT./SM.BACT. FINAL 05/04/18 09:34 NO GROWTH AEROBICALLY OR ANAEROBICALLY. Performed By: #### MISCC #### [facility] [address] [place] [address] Observed: 05/02/2018 Status: F Source: [place] FUNGAL CULTURE/, [facility] 12:48 PM HOSPITALS REPOSITORY PATIENT: JOANA TEE LOCATION: [place] [address] BILL#: [id number] : 63 AGE: SEX: M ORDERED BY: ZAIN ARCOS SOURCE: BIOPSY COLLECTED: 05/02/18 12:48 ANTIBIOTICS AT JUDY.: RECEIVED : 05/02/18 12:49 SITE: RT UPPER LOBE WEDGE R E S U L T S FUNGAL SMEAR FINAL 05/03/18 09:17 FLUORESCENT FUNGAL STAIN: NEGATIVE FUNGAL CULTURE/, [facility] FINAL 05/20/18 09:32 NO FUNGI ISOLATED. Performed By: #### FUNCS #### [facility] [address] [place] [address] [employer] Observed: 05/02/2018 Status: F Source: [place] CULTURE/, [facility] 12:48 PM HOSPITALS REPOSITORY PATIENT: JOANA TEE LOCATION: [place] [address] BILL#: [id number] : 63 AGE: SEX: M ORDERED BY: ZAIN ARCOS SOURCE: BIOPSY COLLECTED: 05/02/18 12:48 ANTIBIOTICS AT JUDY.: RECEIVED : 05/02/18 12:48 SITE: RT UPPER LOBE WEDGE R E S U L T S AFB SMEAR FINAL 05/03/18 11:55 ACID FAST SMEAR - NEGATIVE. [employer] CULTURE/, [facility] FINAL 06/19/18 11:53 NO MYCOBACTERIA ISOLATED. Performed By: #### [facility]BC #### [facility] [address] [place] [address] TH CHEST; 1 VIEW Observed: 05/02/2018 Status: F Source: [place] 12:05 PM HOSPITALS REPOSITORY Patient Name: JOANA TEE STUDY: TH CHEST; 1 VIEW; 05/02/2018 12:05 pm INDICATION: Signs/Symptoms: upright, s/p RUL wedge resection, eval for PTX. COMPARISON: 08/24/2017. ACCESSION NUMBER(S): [id number] ORDERING CLINICIAN: NAV ZAPATA FINDINGS: The cardiac silhouette size is within normal limits. Right apical chest tube in place. Slightly prominent interstitial markings of the lungs.There is no definite focal consolidation, pleural effusion, edema or pneumothorax. No acute osseous abnormality. IMPRESSION: Postsurgical changes in the right lung with right apical chest tube in place. No sizable pneumothorax. Perihilar congestion with no james edema. Electronically signed by: NEW CANTU MD POST OPERATIVE NOTE - Observed: 05/02/2018 Status: COMPLETED Source: [place] 11:32 AM HOSPITALS REPOSITORY Post Operative Note: PreOp Diagnosis: Right lung mass Post-Procedure Diagnosis: Right lung mass Procedure: Flexible bronchoscopy, right upper lobe wedge resection Surgeon: Dr. Zain Arcos Resident/Fellow/Other Display Fabrication Supervisor: Nav Zapata, PGY4 Anesthesia: GETA I.V. Fluids: 1200 ml Estimated Blood Loss (mL): 5 Specimen: yes. RUL lung wedge Complications: None Findings: lung mass in RUL Patient Returned To/Condition: PACU, stable Drains and/or Catheters: right chest tube Signature/Cosignature/Attestation: Attending AttestationI was present for the entire procedure Electronic Signatures: Nav Zapata (Resident)) (Signed 02-May-2018 11:34) Authored: Post Operative Note, Signature/Cosignature/Attestation Zain Arcos) (Signed 02-May-2018 12:39) Authored: Signature/Cosignature/Attestation Co-Signer: Post Operative Note, Signature/Cosignature/Attestation Last Updated: 02-May-2018 12:39 by Zain Arcos) PREOP CHECKLIST Observed: 05/02/2018 Status: UNK Source: [place] 8:04 AM HOSPITALS REPOSITORY Preop Checklist: Preop Checklist: ? Arrival [id number] ? Arrival Time07:45 ? Procedure Typeright VATS upper lobe wedge ? NPO [id number] 20:00 ? ID Band Onyes ? Allergy Bandyes ? Consent Signedyes ? H&P Completeyes ? Anesthesia Assessment Completedpending ? EKG Performedsee results tab ? Chest X-Ray Performedsee results tab ? Chlorhexadine Bath Givennot applicable ? Soap and water bath with hair shampoo the night before surgeryyes ? SCD's Appliedsent to OR ? KEITH Hose Appliedyes ? Denturesnot applicable ? Prostheticsnot applicable ? Hearing Aidsnot applicable ? Valuables Securednot applicable ? Glasses / Contactssent with family glasses sent with ? Bowel Prepno Cardiovascular Assessment: ? Apicalregular ? Radial Pulsespalpable ? Pedal Pulsespalpable ? Extremitieswarm Respiratory Assessment: ? Respirationsregular ? Air Exchangegood ? Breath Soundsclear Neurological Assessment: ? Level of Consciousnessalert, oriented ? Mobilitymoves all extremities ? Able to Express Selfyes ? Age Appropriateyes ? Emotional Statusanxious Preop Education: ? Surgical Site Infection Preventionyes ? Pain Scales and Managementyes Language / Communication: ? Language / CommunicationEnglish Electronic Signatures: Crissy Johnson (LITZY) (Signed 02-May-2018 08:05) Authored: Preop Checklist Last Updated: 02-May-2018 08:05 by Crissy Johnson (LITZY) PATIENT PROFILE - Observed: 05/02/2018 Status: UNK Source: [place] PREOP V2 8:00 AM HOSPITALS REPOSITORY Profile: Initial Info: How to be AddressedRichard Spoken Language PreferredEnglish Are you currently using the Personal Electronic Health Record or [facility] Are you interested in learning more about [facility] for the management of your healthnot at this time Stated Reason for Admissionright lung tumor investigated Primary Contact Name and NumberTammy Patient Belongingsglasses sent with Medications Brought to Hospitalno General Health: Weight in kg62 kilogram(s) Weight in zan229.6 pound(s) Weight Methodactual (measured) Scale Typestanding Height in cm177.8 centimeter(s) Height in feet5 feet Height in wmgrij47 inch(es) Height Methodstated BMI (kg/m2)19.612 square meter Patient or Family Member Reaction to Anesthesiano previous family member reaction; no previous reaction Blood Avoidance/Restrictionsnone Previous Transfusion Reactionno Health Mgmt: Symptoms/Conditions Managed at Homerespiratory; endocrine Respiratory Symptoms/Conditionssleep disordered breathing Respiratory Management StrategiesCPAP CPAP Settingsdidn't bring Respiratory Symptoms/Conditions Commentlung nodule Barriers to Managing Healthnone Endocrine Symptoms/Conditionsthyroid disease Relationship/Environ: Lives Withspouse Living Arrangementshouse Resource/Environmental Concernsnone [facility]tic[facility]ated [facility] Anticipated at Transitionnone Substance: Current or Former Substance Use never: Cigarette/Tobacco, e-Cigarette/Vaping, Alcohol, Street Drugs Risk Screens: Advance Directive Medicalyes Advance Directive typeLiving Will, Durable Power of Clinical Application Consultant for Healthcare Living Will AvailabilityLiving Will not available now Living Will [id number] Durable Power of Clinical Application Consultant AvailabilityDPOA not available now Durable Power of Clinical Application Consultant [id number] Durable Power of Clinical Application Consultant contact (name and number) Keri During the past month, have you often been bothered by feeling down, depressed or hopeless?no During the past month, have you often had little interest or pleasure in doing things?no Have you had any thoughts of harming yourself?no Have you had any thoughts of harming anyone else?no Patient is Able to be Assessed for Learningyes Factors Influencing Readiness to Learnacuteness of illness Factors that Impact Ability to Learnvisual problems Devices/Methods Used to Communicateglasses Learning Preferenceswritten material; individual instruction; group instruction; verbal instruction Cultural Considerationsnone Developmental Considerationsnone Hinduism Considerationsnone Other learner availableno Falls RiskPatient location auto qualifies him/her for HIGH RISK. Are there any cultural, spiritual, hoahaoism practices/values/needs that are important for us to know?no Pain Scalenumerical 0-10 Pain Scale Educationteaching provided Current Pain Level0 = None Acceptable Pain Level5 = Moderate Chronic Painno Information Review: ? Allergies, Home Meds and Significant Events have been Reviewed and Verified with Patient/Familyyes Allergy, Intolerance, Adverse Event: Allergies: ? Reglan: Drug, Mood Alteration, Psychosis, Active Electronic Signatures: Crissy Johnson (LITZY) (Signed 02-May-2018 08:04) Authored: Profile, Additional Information Last Updated: 02-May-2018 08:04 by Crissy JohnsonRN) HISTORY AND PHYSICAL Observed: 05/02/2018 Status: COMPLETED Source: [facility] - SURGICAL UPDATE < 8:00 AM HOSPITALS REPOSITORY 30 DAYS History & Physical Reviewed: I have reviewed the History and Physical dated: 26-Apr-2018 History and Physical reviewed and relevant findings noted. Patient examined to review pertinent physical findings.: No significant changes Home Medications Reviewed: no changes noted Allergies Reviewed: no changes noted This patient has been seen and discussed with the attending physician responsible for performing the procedure: yes Signatures/Attestation/Certification: Attending Provider ? Inpatient Certification StatementI certify this patient?s need for inpatient care based on the above documentation including; the order to admit as inpatient, the anticipated length of stay, diagnosis, problem list and plan of care, and discharge plan. Electronic Signatures: Nav Zapata (Resident)) (Signed 02-May-2018 08:00) Authored: History & Physical Reviewed, Signatures/Attestation/Certification Zain Arcos) (Signed 02-May-2018 08:39) Authored: Signatures/Attestation/Certification Co-Signer: History & Physical Reviewed, Signatures/Attestation/Certification Last Updated: 02-May-2018 08:39 by Zain Arcos) [facility] SURGICAL PATHOLOG[facility] Observed: 05/02/2018 Status: F Source: [place] DEPARTMENT 12:00 AM HOSPITALS REPOSITORY Name JOANA TEE Pathologist: CINDY ALVARES MD Date of Procedure: 05/02/2018 Date Received: 05/02/2018 Date Reported 05/13/2018 Submitting Physician: ZAIN ARCOS MD Location: [place] Other External # FINAL DIAGNOSIS A. LUNG, RIGHT UPPER LOBE, WEDGE RESECTION: -- SQUAMOUS CELL CARCINOMA INVOLVING LUNG, SEE NOTE. Note: An immunostain for p40 is positive in tumor nuclei. An immunostain for TTF-1 is negative in tumor nuclei. The parenchymal margin is uninvolved. Visceral pleural invasion is present. Lymphovascular invasion is not identified. Whether this is primary or metastatic squamous cell carcinoma cannot be determined histologically. Recommend clinical correlation. 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 B. LEVEL 7 LYMPH NODE, EXCISION: -- FRAGMENTS OF LYMPH NODE WITH NO EVIDENCE OF MALIGNANCY. C. LEVEL 9 LYMPH NODE, EXCISION: -- NO EVIDENCE OF MALIGNANCY IN ONE LYMPH NODE (0/1). Electronically Signed Out By CINDY ALVARES MD/MURTAZA By the signature on this report, the individual or group listed as making the Final Interpretation/Diagnosis certifies that they have reviewed this case. Intraoperative Consultation: A: RIGHT UPPER LOBE WEDGE Frozen Section 1: Date Ordered: 05/02/2018 10:15 Date Received: 05/02/2018 10:15 Date Called: 05/02/2018 10:50 Intraoperative Diagnosis: FSA1: NON-SMALL CELL CARCINOMA; METASTATIC DISEASE CANNOT BE EXCLUDED. Intraoperative Consult Pathologist(s): GREGORIO URIAS MD (P) klr/05/02/2018 Clinical History: Lung nodule; hx of SCC of tongue Specimens Submitted As: A: RIGHT UPPER LOBE WEDGE B: LEVEL 7 LYMPH NODE C: LEVEL 9 LYMPH NODE Gross Description: A: Received fresh for intraoperative consultation, labeled with the patient's name and hospital number, is a lung wedge, 6.8 x 3.0 x 1.7 cm, 8.40 grams. The pleura is red-doherty, mottled lightly with black streaks, smooth, and glistening. Focally the pleura is thickened and puckered overlying a palpable mass. The pleural surface has been disrupted by the surgeon to obtain cultures. The pleural surface overlying the mass is inked black. The stapled parenchymal margin measures 9.3 cm in length. After removal of the staple line, this margin is inked blue. The specimen is sectioned. The cut surface reveals an irregular, well demarcated, yellow-white firm mass, 1.1 x 0.9 x 0.9 cm. The mass does not appear to invade the pleura. The tumor is 1.6 cm from the parenchymal margin. The remainder of the cut surface is red-pink and crepitant. A portion of grossly unremarkable tissue was submitted to HTPF. A labor relations representative section of the nodule is submitted for frozen sections. Heat Treater Head sections are submitted in 4 cassettes. KLR/PN B: Received in formalin, labeled with the patient's name and hospital number and level VII lymph node, are multiple possible lymph nodes aggregating to 1.5 x 1.1 x 0.2 cm. The specimen is submitted in toto in one cassette. IAD C: Received in formalin, labeled with the patient's name and hospital number and level IX lymph node, is a possible lymph node measuring 1.1 x 0.2 x 0.2 cm. The specimen is submitted in toto in one cassette. IAD Summary of Cassettes: Specimen Label Site A 1FS nodule, labor relations representative 2 nodule, remainder 3 parenchymal margin closest to nodule, perpendicular 4 grossly unremarkable lung parenchyma iad/05/02/2018 The assays/tests were performed with appropriate positive and negative controls which stained appropriately. 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 POSTOPERATIVE DIAGNOSIS: Right upper lobe lung cancer, potential metastatic disease. OPERATION/PROCEDURE: Flexible bronchoscopy, right video-assisted thoracoscopy, right upper lobe wide wedge resection, and mediastinal lymph node dissection. SURGEON: Zain Arcos MD AIRPLANE PILOT CROP DUSTING(S): Benito ANESTHESIA: General endotracheal. IV FLUIDS: 1.2 L crystalloid. EBL: 10 mL. INDICATION FOR PROCEDURE: This is a 53-year-old gentleman who had history of squamous cell cancer of the tongue, was followed up, and on chest CT, was found to have a solitary right upper lobe lesion which was concerning for metastatic disease versus primary lung cancer. I discussed with him and his family about the indication of procedure, possible associated complications, and expected outcome. They expressed understanding and wanted to continue with it. PROCEDURE: The patient was brought to operating room. After induction of general endotracheal anesthesia with single-lumen tube, time-out was performed. Identification of the patient and procedure was done. We started with flexible bronchoscopy. The bronchoscope was inserted into the ET tube, and the right upper lobe, right middle lobe, right lower lobe, as well as the left upper lobe, left lower lobe, and segmental orifices were pristine without any endobronchial lesion. Then, the single-lumen tube could not be changed to a double-lumen tube due to the patient having just enough after a tongue surgery reconstruction, so we used a bronchial sherrie to occlude the right lung, and using the Bronchial sherrie for one-lung ventilation, the patient was positioned with the right side up on a nowak bag with axillary roll. All pressure points supported. Time-out was performed again. The right chest was prepped and draped in the usual sterile fashion. We started with a 10 mm trocar in the posterior axillary line 8th intercostal space and another 10 mm trocar in the anterior axillary line 8th intercostal space. Using these 2 trocars, we entered into the chest, and initially we did some lysis of adhesions and identified the lesion in the anterior part of the right upper lobe. We took Endo-ESTRELLA purple loads x3 and 60s x3 and managed to get a wide wedge around it and took it out with an endobag from the chest and sent it for pathology. While waiting for pathology, we continued with mediastinal lymph node dissection. We took the inferior pulmonary ligament and took level 9. We took the subcarinal space and took simple multiple level 7 lymph node. We could not appreciate any level 4 between the vena cava and the trachea, any level 4 lymph node. Otherwise, we put some Surgicel at the bed of the dissection. There was no evidence of any bleeding or any air leak on the staple line. Then, we waited for pathology. Pathology documented that it is cancerous. They could not differentiate if it is a primary lung cancer versus metastatic disease. At that time, we decided since we took it with wide margins not to continue and do a lobectomy but to position a 28-Montenegrin chest tube which was tunneled from the anterior trocar site all the way to the apex and secured it to the chest wall and secured with 0- silk suture. suture. We did intercostal nerve block at the level of 7, 8, and 9 intercostal spaces. Otherwise, we sutured the chest tube to the chest wall using a 0 silk suture and closed all the incision using a 3-0 Vicryl to approximate the soft tissue and 4-0 Biosyn for the skin. Otherwise, the patient tolerated this procedure well, was extubated in the OR, and was taken to the recovery room. I was present for the procedure and performed the procedure, assisted by Dr. Zapata. Zain Arcos MD EST TT: 05/03/2018 04:16 AM EST DICTATION NUMBER: [id number] SPHERIS JOB NUMBER: [id number] CC: [place] Edited by Zain Arcos 05/13/2018 11:30:03 AM Electronically Signed by Dr. Zain Arcos 05/13/2018 11:30:03 AM CLINIC NOTE - Observed: 04/26/2018 Status: COMPLETED Source: [place] [facility] 2:42 PM HOSPITALS REPOSITORY Note Types: Note Type: Follow Up Note Author: Note Authored by: Registered Dietitian Costume Cutter (RDN) Pager Number: [phone] Nutrition Note: The patient is a 53 year old Male with Right base of tongue cancer diagnosed in 2009, treated with surgery, chemo, radiation. Patient remains NPO and is PEG tube dependent. He does not have insurance coverage for his TF or supplies and continues to use the Apptio, so his TF formulation may change from shipment to shipment. He is currently taking Osmolite 1.2. His plan is to also purchase some [facility] to help supplement calories due to the cost and calories provided. he also reports he will be getting Isosource 1.5 soon. He is seeing Dr. Arcos today- He was found to have a lung mass. He will be having surgery next week- he will be undergoing a wedge procedure. Height/Weight: Height in feet: 5 feet Height in inches: 9 inch(es) Height in cm: 175.2 centimeter(s) Weight in lbs: 139.9 pound(s) Weight (kg): 63.5 BMI (kg/m2): 20.687 square meter DBW (kg): 72.7 %DBW: 87 Weight history/ % weight change: 08-04-2016 wt 158# 03-02-2017 wt 158# 03-01-2018 wt 139.7# 04-05-2018 wt 141# 04-26-18 wt 139.9#- weight essentially stable since February of 2018 Significant Weight Change: yes Lab Results: ? Results no recent labs to note CBC date/time WBC HGB HCT PLT Neut 13-Oct-2011 10:45 3.2(L) 13.4(L) 40.0(L) 201 N/A BMP date/time NA K CL CO2 BUN CREAT 19-Sep-2013 13:25 139 4.3 103 N/A 23 1.04 Hepatic date/time T Pro T Bili AST ALT ALKP ALB 20-May-2011 03:37 5.7(L) 0.8 14 18 60 3.4 LDH date/time LDH 25-May-2011 05:50 N/A Allergies and Intolerances: Allergies: Reglan: Drug, Mood Alteration, Psychosis, Active Outpatient Medication/Rx Yoga Coordinator: * Outpatient Medication Status not yet specified Food / Nutrition Related History: Intake: NPO GI Symptoms: none Oral Problems: dysphagia Mobility: normal activity, still working, but gets very tired by the end of the day he tells me today he is now allotted a break and a lunch to help with his feedings Food Allergies / Supplements: Food/Nutrition Related History: patient currently taking 8 cans per day about 2400 calories per day on average Muscle Wasting: Temporal: no Shoulder: no Clavicle: yes Scapula/Back: no Interosseous: no Quadriceps: no Calf: no Loss of Subcutaneous Fat: Eyes: no Perioral: defer Triceps: yes Other Physical Findings: Hair: negative Eyes: negative Nails: negative Edema: none Change in Metabolic Demand: yes Estimated Needs: kcals/day: 2700+ gms protein/day: 110-120 mL fluid/day: 2519-5740 Nutrition Diagnosis: Diagnosis1 resolved. Dx: Unintended weight loss. related to patient not having standard TF formula on a daily basis as well as potential increased metabolic demands as evidenced by use of Apptio for TF supplies and weight history as well as physical findings. Diagnosis2 ongoing. Dx: Swallowing difficulties. related to dysphagia associated with H&N cancer/tx as evidenced by continued dependence on PEG for nutrition support. Additional Assessment Information: No further weight loss- since February or so. TF changes remain tolerated. Despite efforts, still unable to get formula and supplies covered through insurance. Nutrition Interventions: Individualized Nutrition Prescription Provided for: enteral nutrition Enteral/Parenteral Nutrition Support: Insurance will not cover formula or supplies. Patient continues to rely on donations and the Apptio. He uses syringe for feeding. Isosource 1.5, goal is 8 cans daily (3000 calories, 136 g protein, 1560 ml free water) should allow patient to gain weight however, he cannot consistently take this product. he does have a supply becoming available to him shortly which might help with weight gain. He also is pursing the use of Boost VHC daily (530 kcal, 22gm protein) and plans on purchasing it at a discounted rate through [facility]. Continue same water flushes-480ml/feeding Coordination of Care with: ENT Thoracic surgery Nutrition Goals: Nutrition Goals: adequate fluid intake, nutrition support goals are met, gradual weight gain Monitor Plan: Monitoring and Evaluation Plan: fluid intake/adequacy Nutrition Support tolerance/adequacy weight trend overall appearance Nutrition Education: Education Provided to: patient, family Anticipated Compliance: good Follow up: will follow as needed Electronic Signatures: Mary Strange (ELSY, BELEN) (Signed 26-Apr-2018 15:03) Authored: Nutrition Note Last Updated: 26-Apr-2018 15:03 by Mary Strange (ELSY, BELEN) OFFICE VISIT (THORACIC Observed: 04/26/2018 Status: UNK Source: [facility] 1:13 PM HOSPITALS REPOSITORY SURGERY) Chief Complaint Mr. 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 History of Present Illness The patient is being seen for an initial evaluation of a lung nodule. He was Dr. Fortune from ENT. The lung nodule is 7x8 mm. It is located in the right upper lobe. Symptoms: weight loss. Pertinent med ical history: no smoking. No relevant exposures have been identified. Review of Systems Constitutional: not feeling tired. Eyes: no eyesight problems. ENT: no hearing loss and no nosebleeds. Cardiovascular: as noted in HPI and no intermittent leg claudication. Respiratory: no chronic cough and no shortness of breath. Gastrointestinal: no change in bowel habits and no blood in stools. Genitourinary: no urinary frequency and no hematuria. Skin: no skin rashes. Neurological: no seizures and no frequent falls. Psychiatric: no depression and not suicidal. 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) Added by Problem List Migration; 2013-03-29; Moved to [facility] Jul 26 2013 4:09PM Observation, malignant neoplasm, suspected (V71.1) (Z03.89) SILVIA on CPAP (327.23,V46.8) (G47.33,Z99.89) Weight loss, unintentional (783.21) (R63.4) Family History Family history of malignant neoplasm (V16.9) (Z80.9) Family history of malignant neoplasm (V16.9) (Z80.9) Social History Denied: History of Drinking alcohol regularly, feeling guilty about it Never a smoker Denied: History of Smoker Allergies Hoda CARPENTER Recorded By: Beverly Deleon; 09/19/2013 12:27:01 PM Current Meds FLUoxetine HCl - 40 MG Oral Capsule; Therapy: (Recorded:[id number]) to Recorded Dispense: 0 Days ; #: Sufficient CAPS; Refill: 0; PIEDAD = N; Record; Last Updated By: Haleigh Mata; 04/26/2018 10:12:18 AM Levothyroxine Sodium 75 MCG Oral Tablet; Therapy: [id number] to Recorded Rx By: FABIOLA; Dispense: 30 Days ; #:30 TABS; Refill: 0; PIEDAD = N; Record; Last Updated By: Arlet Escoto; 08/04/2016 8:56:27 AM Vitals Vital Signs Recorded: [id number] 10:07AM Tdplydygrgf07.9 F, Tympanic Heart Rate60 Qompxbxhjjp46 Kdqupgtb885, LUE, Sitting Sjxojwoom29, LUE, Sitting Height5 ft 9 in Ihzbqe639 lb 9 oz BMI Mwdyywxwzc06.61 BSA Calculated1.77 O2 Awjmvlugtx046, RA Pain Scale0 Physical Exam The patient is well-appearing and in no acute distress. Oral and nasal mucosa are clear. Status post neck dissection and reconstruction of his right mandible and resection of oropharyngeal tumor .The ne ck had no cervical or supraclavicular adenopathy. The trachea and midline is without crepitus. The thyroid had no masses. There is no JVD. The lungs were clear to auscultation, there was no dullness to percussion, no fremitus or egophony. There was good effort and excursion. The heart had a regular rate and rhythm without murmurs, rubs or gallops. The abdomen was soft, nontender and nondistended, ther e was no palpable his G-tube is intact with no sign of infection . hepatosplenomegaly. The extremities had no cyanosis, clubbing, or edema. The skin was warm with no rashes, and there was good refill. T he mood displayed no abnormalities. Gait was normal. Results/Data Coagulation [id number] 11:56AMPZain ann Test NameResultFlagReference PROTHROMBIN TIME11.9 sec9.8 - 12.7 PT, INR1.10.9 - 1.1 APTT29 sec25 - 36 THE APTT IS NO LONGER USED FOR MONITORING UNFRACTIONATED HEPARIN THERAPY. FOR MONITORING HEPARIN THERAPY, USE THE HEPARIN ASSAY. PROTHROMBIN TIME11.9 sec9.8 - 12.7 PT, INR1.10.9 - 1.1 APTT29 sec25 - 36 THE APTT IS NO LONGER USED FOR MONITORING UNFRACTIONATED HEPARIN THERAPY. FOR MONITORING HEPARIN THERAPY, USE THE HEPARIN ASSAY. CT Neck with [id number] 10:05AMDale Fortune [Mar 19, 2018 5:02PM Dale Fortune] Reason: Unspecified for CT Neck with Contrast Test NameResultFlagReference CT Neck with Contrast(Report) Interpreted by: OMID RUTHERFORD 04/05/18 12:42 Patient Name: JOANA TEE STUDY: CT NECK WITH CONTRAST; 04/05/2018 10:05 am INDICATION: Signs/Symptoms: hx oropharyngeal cancer, chronic fatigue, unintentional weight loss. COMPARISON: 10/20/2010 ACCESSION NUMBER(S): [id number] ORDERING CLINICIAN: DALE FORTUNE TECHNIQUE: Axial CT images of the neck were obtained. The satish ent received 120 cc Optiray 350 intravenous contrast agent. The images were reformatted in angled axial, coronal and sagittal planes. FINDINGS: There remains evidence of previous extensive right neck dissection. Surgical clips remain in the right submandibular space. Oral Cavity, Pharynx and Larynx: Evaluation oral cavity is mildly limited by streak artifact from dental hardware. The nasopharynx is patent with slight asymmetry of soft tissue right thicker than the left but no focal mass. There is right tongue atrophy with widely patent oropharynx. The hypopharynx and larynx appears unremarkable. R etropharyngeal and Prevertebral Soft Tissues: Unremarkable. Lymph nodes: No abnormal lymph nodes detected. Neck vessels: Bilateral neck vessels are normal in course and caliber and appear patent. Thyroid gland: The thyroid gland is unremarkable in size and appearance. Parotid and submandibular glands: Bilateral parotid and left submandibular glands are unremarkable in appearance. A residual ri ght submandibular gland is not visualized consistent with resection. Paranasal Sinuses and Mastoids: Visualized paranasal sinuses and bilateral mastoids are clear. Visualized orbital structures are unremarkable. Visualized upper lungs are clear. There are scattered areas of mild right foraminal compromise from bony hypertrophy. No apparent cervical spinal canal stenosis. IMPRESSION: Postop burleson es right neck dissection without apparent recurrent mass or lymphadenopathy. Interpreted within [place], [place] Transcribed by: [email or web address], User Electronically signed by: [email or web address], User 04/05/18 12:42 CT Chest with [id number] 10:05AMDale Fortune [Mar 19, 2018 5:36PM Dale Fortune] Reason: Unspecified for CT Chest with Contrast Test NameResultFlagReference CT Chest with Contrast(Report) Interpreted by: ANGÉLICA 04/05/18 18:29 Patient Name: JOANA TEE STUDY: CT ABDOMEN AND PELVIS WITH CONTRAST; CT CHEST W CONTRAST; 04/05/2018 10:05 am INDICATION: Signs/Symptoms: hx augustin pharyngeal cancer, chronic fatigue, unintentional weight loss; assess for pulm mets. COMPARISON: CT scan chest 03/31/2011. ACCESSION NUMBER(S): [id number]; [id number] ORDERING CLINICIAN: DALE Rutherford TECHNIQUE: CT of the chest, abdomen, and pelvis was performed. Contiguous axial images were obtained at 3 mm slice thickness through the chest, abdomen and pelvis. Coronal and sagittal reconstructio ns at 3 mm slice thickness were performed. 120 ml of contrast Optiray 350 were administered intravenously without immediate complication. FINDINGS: CHEST: LUNG/PLEURA/LARGE AIRWAYS: There is no pl eural effusion or pneumothorax. Soft tissue nodule in the right upper lobe measuring 7 X 8 mm, new compared to prior study (image 95 of 334) Patchy ground-glass opacities in right upper lobe, right lowe r lobe and left lower lobe, in new locations compared to prior exam associated. There has been interval resolution of previously noted ground-glass opacities. VESSELS: Aorta and pulmonary arteries a re normal caliber. Incidental 2 vessel aortic arch noted. No atherosclerotic changes of the aorta are identified. No coronary artery calcifications are present. HEART: The heart is normal in size. The re is no major pericardial effusion. MEDIASTINUM AND DYAN: No mediastinal, hilar or axillary lymphadenopathy is present. Esophagus: Within normal limits. CHEST WALL AND LOWER NECK: The soft tissues of the chest wall demonstrate no gross abnormality. The visualized thyroid gland appears within normal limits. ABDOMEN: LIVER: The liver is normal in size without evidence of focal liver lesions. BILE DUCTS: The intrahepatic and extrahepatic ducts are not dilated. GALLBLADDER: Gallbladder present. PANCREAS: The pancreas appears unremarkable without evidence of ductal dilatation or masses. SPLEEN: The spleen is normal in size, small accessory spleen noted. ADRENAL GLANDS: Bilateral adrenal glands appear normal with no focal lesion. KIDNEYS AND URETERS: The kidneys are normal in size a nd enhance symmetrically. No hydroureteronephrosis or nephroureterolithiasis is identified. PELVIS: BLADDER: The urinary bladder appears normal without abnormal wall thickening. REPRODUCTIVE ORGAN S: No pelvic masses. BOWEL: Gastrostomy tube noted with tip in stomach. The small bowel is normal in appearance without wall thickening or obstruction. The appendix is surgically absent, prior surgica l changes noted. Large bowel to articular noted without inflammation. VESSELS: There is no aneurysmal dilatation of the abdominal aorta. The IVC appears normal. PERITONEUM/RETROPERITONEUM/LYMPH NO ALEX: No ascites or free air, no fluid collection. BONE AND SOFT TISSUE: Tiny bony islands in bilateral femoral head and acetabulum. Previously noted bilateral pars defect at the level of L5 over S1 wi th grade 2 anterolisthesis. IMPRESSION: CHEST: 1. New lung nodule as above, concerning for metastasis disease considering patient's clinical history. Short term, 2-3 month follow-up is recommended. 2. New pulmonary small patchy ground-glass opacities. These are non-specific and could relate to infection, inflammation or simply altered perfusion. Attention on future imaging is recommended. ABDOMEN-PE LVIS: 1. Gastrostomy tube with tip in the stomach 2. Status post appendectomy 3. Grade 2 anterolisthesis of L5 on S1 I personally reviewed the images/study and I agree with the findings as stated. This study was interpreted at [facility], [place], [place]. 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; Due:25Jul2018; Last Updated By:Glenda Rivas; 04/26/2018 10:35:22 AM;Ordered; Stat; For:Lung nodule; Ordered By:Zain Arcos; Pre/PostBronchodilator Spirometry; Status:Active - Retrospective Authorization; Requested for:[id number]; Perform:[facility]; Due:25Jul2018; Last Updated By:Glenda Rivas; 04/26/2018 10:35:22 AM;Ordered; Stat; For:Lung nodule; Ordered By:Zain Arcos; Lung nodule, Malignant neoplasm of oropharynx PET/CT Lung Ca Initial; Status:Hold For - Scheduling,Retrospective Authorization; Requested for:[id number]; Perform:[facility]; Due:25Jul2018; Last Updated By:Glenda Rivas; 04/26/2018 10:39:54 AM;Ordered; For:Lung nodule, Malignant neoplasm of oropharynx; Ordered By:Zain Arcos; Radiologist to Determine Optimal Study : Y What are the patient's signs and symptoms? : assess for metastatic disease Preoperative clearance Basic Metabolic Panel; Source:Blood (BLD); Status:Active - Retrospective Authorization; Requested for:[id number]; Perform:[facility] Services - Lab To Draw (Blood Test); Due:25Jul2018; Last Updated By:Glenda Rivas; 04/26/2018 10:32:55 AM;Ordered; For:Preoperative clearance; Ordered By:Zain Arcos; Coagulation Screen; Source:Blood (BLD); Status:Resulted - Requires Verification,Retrospective Authorization; Done: 26Apr2018 11:56AM Performed:[facility]; Due:25Jul2018;Ordered; For:Preoperative clearance; Ordered By:Zain Arcos; Complete Blood Count; Source:Blood (BLD); Status:Active - Retrospective Authorization; Requested for:[id number]; Perform:Lab Services - Lab To Draw (Blood Test); Due:25Jul2018; Last Updated By:Glenda Rivas; 04/26/2018 10:32:55 AM;Ordered; For:Preoperative clearance; Ordered By:Zain Arcos; Type and Screen; Source:Blood (BLD); Status:Active - Retrospective Authorization; Requested for:26Apr2018; Perform:Lab Services - Lab To Draw (Blood Test); Order Comments:FOR OR ON 05/02/18, PLEASE FILL OUT PAT FORM; Due:25Jul2018; Last Updated By:Glenda Rivas; 04/26/2018 10:32:55 AM;Ordered; For:Preoperativ e clearance; Ordered By:Zain Arcos; Provider Impressions This is a 54-year-old gentleman who is a lifetime nonsmoker, which on March 2010 was diagnosed 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 He is dependent on tube feeds. He does have other comorbidities including sleep apnea on CPAP, chronic fatigue, which recently he had some weight loss and workup which including a CT scan w [facility] documented a new right upper lobe 7/8 mm lung nodule with a patchy groundglass opacity in the right upper lobe with no evidence of any other lesions or recurrence in his chest, abdomen and pelvis C T scan. I discussed with him about the finding I believe we should continue with tissue diagnosis which will include right video-assisted thoracoscopy, wedge resection and mediastinal lymph node dissect ion, we will obtain pulmonary function test and according to the finding in surgery. We will obtain a PET/CT to get a better understanding of his disease process. I discussed with him and his family abo ut indication for the procedure, the possible surgical medications and expected outcomes, express understanding and want to continue with the workup and the procedure. I discussed the risks (prolonged air leak, bleeding and infection) and benefits (obtaining diagnosis) of a thoracoscopic lung resection. I also explained that occasionally a larger incision is required. I explained alternatives of observation, or needle biopsy and possible radiation treatments. The patient had the opportunity to ask questions which were answered. I discussed the risks (1-2% mortality, pneumonia, prolonged air leak, bleeding blood clots, and respiratory difficulty) and benefits (potential cure) of lobectomy or segmentectomy. I mentioned that rare ly a larger lung resection is required which may carry more risk. I explained alternatives of radiation and/or chemotherapy. The patient had the opportunity to ask questions which were answered. End of Encounter Meds FLUoxetine HCl - 40 MG Oral Capsule; Therapy: (Recorded:[id number]) to Recorded Levothyroxine Sodium 75 MCG Oral Tablet; Therapy: [id number] to Recorded Signatures Electronically signed by : Zain Arcos MD; Apr 26 2018 1:13PM EST (Author) REFERRAL LETTER Observed: 04/26/2018 Status: UNK Source: [place] 1:13 PM HOSPITALS REPOSITORY I had the pleasure of evaluating your patient JOANA TEE. My full evaluation follows: The patient is being seen for an initial evaluation of a lung nodule. He was Dr. Fortune from ENT. The lung nodule is 7x8 mm. It is located in the right upper lobe. Symptoms: weight loss. Pertinent me dical history: no smoking. No relevant exposures have been identified. Coagulation [id number] 11:56Zain Hall Test NameResultFlagReference PROTHROMBIN TIME11.9 sec9.8 - 12.7 PT, INR1.10.9 - 1.1 APTT29 sec25 - 36 THE APTT IS NO LONGER USED FOR MONITORING UNFRACTIONATED HEPARIN THERAPY. FOR MONITORING HEPARIN THERAPY, USE THE HEPARIN ASSAY. PROTHROMBIN TIME11.9 sec9.8 - 12.7 PT, INR1.10.9 - 1.1 APTT29 sec25 - 36 THE APTT IS NO LONGER USED FOR MONITORING UNFRACTIONATED HEPARIN THERAPY. FOR MONITORING HEPARIN THERAPY, USE THE HEPARIN ASSAY. CT Neck with [id number] 10:05AMDale Fortune [Mar 19, 2018 5:02PM Dale Fortune] Reason: Unspecified for CT Neck with Contrast Test NameResultFlagReference CT Neck with Contrast(Report) Interpreted by: OMID RUTHERFORD 04/05/18 12:42 Patient Name: JOANA TEE STUDY: CT NECK WITH CONTRAST; 04/05/2018 10:05 am INDICATION: Signs/Symptoms: hx oropharyngeal cancer, chronic fatigue, unintentional weight loss. COMPARISON: 10/20/2010 ACCESSION NUMBER(S): [id number] ORDERING CLINICIAN: DALE FORTUNE TECHNIQUE: Axial CT images of the neck were obtained. The satish ent received 120 cc Optiray 350 intravenous contrast agent. The images were reformatted in angled axial, coronal and sagittal planes. FINDINGS: There remains evidence of previous extensive right neck dissection. Surgical clips remain in the right submandibular space. Oral Cavity, Pharynx and Larynx: Evaluation oral cavity is mildly limited by streak artifact from dental hardware. The nasopharynx is patent with slight asymmetry of soft tissue right thicker than the left but no focal mass. There is right tongue atrophy with widely patent oropharynx. The hypopharynx and larynx appears unremarkable. R etropharyngeal and Prevertebral Soft Tissues: Unremarkable. Lymph nodes: No abnormal lymph nodes detected. Neck vessels: Bilateral neck vessels are normal in course and caliber and appear patent. Thyroid gland: The thyroid gland is unremarkable in size and appearance. Parotid and submandibular glands: Bilateral parotid and left submandibular glands are unremarkable in appearance. A residual ri ght submandibular gland is not visualized consistent with resection. Paranasal Sinuses and Mastoids: Visualized paranasal sinuses and bilateral mastoids are clear. Visualized orbital structures are unremarkable. Visualized upper lungs are clear. There are scattered areas of mild right foraminal compromise from bony hypertrophy. No apparent cervical spinal canal stenosis. IMPRESSION: Postop burleson es right neck dissection without apparent recurrent mass or lymphadenopathy. Interpreted within [place], [place] Transcribed by: [id number], User Electronically signed by: [email or web address], User 04/05/18 12:42 CT Chest with [id number] 10:05AMDale Fortune [Mar 19, 2018 5:36PM Dale Fortune] Reason: Unspecified for CT Chest with Contrast Test NameResultFlagReference CT Chest with Contrast(Report) Interpreted by: ANGÉLICA 04/05/18 18:29 Patient Name: JOANA TEE STUDY: CT ABDOMEN AND PELVIS WITH CONTRAST; CT CHEST W CONTRAST; 04/05/2018 10:05 am INDICATION: Signs/Symptoms: hx augustin pharyngeal cancer, chronic fatigue, unintentional weight loss; assess for pulm mets. COMPARISON: CT scan chest 03/31/2011. ACCESSION NUMBER(S): [id number]; [id number] ORDERING CLINICIAN: DALE Rutherford TECHNIQUE: CT of the chest, abdomen, and pelvis was performed. Contiguous axial images were obtained at 3 mm slice thickness through the chest, abdomen and pelvis. Coronal and sagittal reconstructio ns at 3 mm slice thickness were performed. 120 ml of contrast Optiray 350 were administered intravenously without immediate complication. FINDINGS: CHEST: LUNG/PLEURA/LARGE AIRWAYS: There is no pl eural effusion or pneumothorax. Soft tissue nodule in the right upper lobe measuring 7 X 8 mm, new compared to prior study (image 95 of 334) Patchy ground-glass opacities in right upper lobe, right lowe r lobe and left lower lobe, in new locations compared to prior exam associated. There has been interval resolution of previously noted ground-glass opacities. VESSELS: Aorta and pulmonary arteries a re normal caliber. Incidental 2 vessel aortic arch noted. No atherosclerotic changes of the aorta are identified. No coronary artery calcifications are present. HEART: The heart is normal in size. The re is no major pericardial effusion. MEDIASTINUM AND DYAN: No mediastinal, hilar or axillary lymphadenopathy is present. Esophagus: Within normal limits. CHEST WALL AND LOWER NECK: The soft tissues of the chest wall demonstrate no gross abnormality. The visualized thyroid gland appears within normal limits. ABDOMEN: LIVER: The liver is normal in size without evidence of focal liver lesions. BILE DUCTS: The intrahepatic and extrahepatic ducts are not dilated. GALLBLADDER: Gallbladder present. PANCREAS: The pancreas appears unremarkable without evidence of ductal dilatation or masses. SPLEEN: The spleen is normal in size, small accessory spleen noted. ADRENAL GLANDS: Bilateral adrenal glands appear normal with no focal lesion. KIDNEYS AND URETERS: The kidneys are normal in size a nd enhance symmetrically. No hydroureteronephrosis or nephroureterolithiasis is identified. PELVIS: BLADDER: The urinary bladder appears normal without abnormal wall thickening. REPRODUCTIVE ORGAN S: No pelvic masses. BOWEL: Gastrostomy tube noted with tip in stomach. The small bowel is normal in appearance without wall thickening or obstruction. The appendix is surgically absent, prior surgica l changes noted. Large bowel to articular noted without inflammation. VESSELS: There is no aneurysmal dilatation of the abdominal aorta. The IVC appears normal. PERITONEUM/RETROPERITONEUM/LYMPH NO ALEX: No ascites or free air, no fluid collection. BONE AND SOFT TISSUE: Tiny bony islands in bilateral femoral head and acetabulum. Previously noted bilateral pars defect at the level of L5 over S1 wi th grade 2 anterolisthesis. IMPRESSION: CHEST: 1. New lung nodule as above, concerning for metastasis disease considering patient's clinical history. Short term, 2-3 month follow-up is recommended. 2. New pulmonary small patchy ground-glass opacities. These are non-specific and could relate to infection, inflammation or simply altered perfusion. Attention on future imaging is recommended. ABDOMEN-PE LVIS: 1. Gastrostomy tube with tip in the stomach 2. Status post appendectomy 3. Grade 2 anterolisthesis of L5 on S1 I personally reviewed the images/study and I agree with the findings as stated. This study was interpreted at [facility], [place], [place]. 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 He is dependent on tube feeds. He does have other comorbidities including sleep apnea on CPAP, chronic fatigue, which recently he had some weight loss and workup which including a CT scan which documented a new right upper lobe 7/8 mm lung nodule with a patchy groundglass opacity in the right upper lobe with no evidence of any other lesions or recurrence in his chest, abdomen and pelvis CT scan. I discussed with him about the finding I believe we should continue with tissue diagnosis which will include right video-assisted thoracoscopy, wedge resection and mediastinal lymph node dissec tion, we will obtain pulmonary function test and according to the finding in surgery. We will obtain a PET/CT to get a better understanding of his disease process. I discussed with him and his family ab out indication for the procedure, the possible surgical medications and expected outcomes, express understanding and want to continue with the workup and the procedure. I discussed the risks (prolonged air leak, bleeding and infection) and benefits (obtaining diagnosis) of a thoracoscopic lung resection. I also explained that occasionally a larger incision is required. I explained alternatives of observation, or needle biopsy and possible radiation treatments. The patient had the opportunity to ask questions which were answered. I discussed the risks (1-2% mortality, pneumonia, prolonged air leak, bleeding blood clots, and respiratory difficulty) and benefits (potential cure) of lobectomy or segmentectomy. I mentioned that rare ly a larger lung resection is required which may carry more risk. I explained alternatives of radiation and/or chemotherapy. The patient had the opportunity to ask questions which were answered. This note was created using speech recognition home help aide software. Despite proofreading, several typographical errors might be present that might affect the meaning of the content. Please call with any questions. Sincerely, End of Encounter Meds FLUoxetine HCl - 40 MG Oral Capsule; Therapy: (Recorded:[id number]) to Recorded Levothyroxine Sodium 75 MCG Oral Tablet; Therapy: [id number] to Recorded Signatures Electronically signed by : Zain Arcos MD; Apr 26 2018 1:13PM EST (Author) Reviewed by : Dale Fortune MD; Apr 26 2018 6:21PM EST COAGULATION SCREEN Collected: 04/26/2018 Status: F Source: [place] 11:56 AM HOSPITALS REPOSITORY TYPE CODE TESTS RESULT OUT OF REFERENCE UNITS RANGE LAB PT(LOINC) 9.8 - 12.7 sec PROTHROMBIN TIME 11.9 LAB INR(LOINC) 0.9 - 1.1 PT, INR 1.1 LAB APTT(LOINC 25 - 36 sec ) APTT 29 Result Comment: THE APTT IS NO LONGER USED FOR MONITORING UNFRACTIONATED HEPARIN THERAPY. FOR MONITORING HEPARIN THERAPY, USE THE HEPARIN ASSAY. Performed By: #### COAGS #### [facility] [address] [facility] [place] [address] TYPE + SCREEN Collected: 04/26/2018 Status: F Source: [place] 11:56 [facility] REPOSITORY TYPE CODE TESTS RESULT OUT OF REFERENCE UNITS RANGE LAB ABORH(LOINC ) ABO TYPE O LAB RH(LOINC) RH TYPE POS LAB ABSC(LOINC) ANTIBODY NEG SCREEN Performed By: #### T+S #### [facility] [address] [place] [address] CBC Collected: 04/26/2018 Status: F Source: [place] 11:56 [facility] REPOSITORY TYPE CODE TESTS RESULT OUT OF REFERENCE UNITS RANGE LAB WBCR(LOINC 4.4 - 11.3 x10E9/L ) Low WBC 4.1 LAB NRBC(LOINC 0.0-0.0 /100 WBC ) NUCLEATED RBC 0.0 LAB RBCCT(LOIN 4.50 - 5.90 x10E12/L C) Low RBC 4.25 LAB HGB(LOINC) 13.5 - 17.5 g/dL HGB 14.4 LAB HCT(LOINC) 41.0 - 52.0 % HCT 41.2 LAB MCV(LOINC) 80 - 100 fL MCV 97 LAB MCHC2(LOIN 32.0 - 36.0 g/dL C) MCHC 35.0 LAB PLTCT(LOIN 150 - 450 x10E9/L C) PLT 216 LAB RDWCV(LOIN 11.5 - 14.5 % C) RDW-CV 12.6 Performed By: #### CBC #### [facility] [address] [place] [address] BASIC METABOLIC PANEL Collected: 04/26/2018 Status: F Source: [place] 11:56 [facility] REPOSITORY TYPE CODE TESTS RESULT OUT OF REFERENCE UNITS RANGE LAB GLU(LOINC) 74 - 99 mg/dL GLUCOSE High 102 LAB SOD(LOINC) 136 - 145 mmol/L SODIUM 140 LAB K(LOINC) 3.5 - 5.3 mmol/L POTASSIUM 4.8 LAB CHLOR(LOIN 98 - 107 mmol/L C) CHLORIDE 99 LAB BIC(LOINC) 21 - 32 mmol/L BICARBONATE 31 LAB ANGAP(LOIN 10 - 20 mmol/L C) ANION GAP 15 LAB UREA(LOINC 6 - 23 mg/dL ) UREA NITROGEN 23 LAB CREA(LOINC 0.50 - 1.30 mg/dL ) CREATININE 1.08 LAB GFRFN(LOIN >60 mL/min/1.7 C) 3m2 GFR-NON AM. >60 LAB GFRAA(LOIN >60 mL/min/1.7 C) 3m2 GFR- AM. >60 Result Comment: CALCULATIONS OF ESTIMATED GFR ARE PERFORMED USING THE MDRD STUDY EQUATION FOR THE IDMS-TRACEABLE CREATININE METHODS. CLIN CHEM 2007;53:766-72 LAB CA(LOINC) 8.6 - 10.6 mg/dL CALCIUM 10.5 Performed By: #### BMP #### [facility] [address] [place] [address] ESTABLISHED VISIT Observed: 04/05/2018 Status: UNK Source: [place] (OTOLARYNGOLOGY) 12:23 PM HOSPITALS REPOSITORY Chief Complaint Follow up status post treatment of a base of tongue cancer History of Present Illness This patient first presented with a T4 N1 lesion of his right base of tongue back in March of 2010. He had persistent disease after chemoradiation and had surgery back in September of 2010. He denies any p ain or discomfort. He does have obstructive sleep apnea and uses his CPAP. He is also hypothyroid and is on Synthroid. He had a TSH level back in August 2017 which was normal. He also had a chest x-ra y at that time which was also normal. He is almost totally peg dependent. He has lost approximately 20 pounds recently. He complains of fatigue. Nothing really has changed from the head and neck point o f view. After his last appointment he call me back and wanted to be evaluated because of the weight loss. I did send him up to get scanned. This was done on April 05, 2018. I personally reviewed the sca ns. My only finding is a small nodules in the lungs which I believe was present previously. I will awaiting the report from our radiologist. 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) Added by Problem List Migration; 2013-03-29; Moved to Suppressed Jul 26 2013 4:09PM Observation, malignant neoplasm, suspected (V71.1) (Z03.89) SILVIA on CPAP (327.23,V46.8) (G47.33,Z99.89) Weight loss, unintentional (783.21) (R63.4) Family History Family history of malignant neoplasm (V16.9) (Z80.9) Family history of malignant neoplasm (V16.9) (Z80.9) Social History Denied: History of Drinking alcohol regularly, feeling guilty about it Never a smoker Denied: History of Smoker Allergies Hoda CARPENTER Recorded By: Beverly Deleon; 09/19/2013 12:27:01 PM Current Meds Levothyroxine Sodium 75 MCG Oral Tablet; Therapy: [id number] to Recorded Rx By: FABIOLA; Dispense: 30 Days ; #:30 TABS; Refill: 0; PIEDAD = N; Record; Last Updated By: Arlet Escoto; 08/04/2016 8:56:27 AM Vitals Vital Signs Recorded: [id number] 10:31AM Deijdh353 lb BMI Mpxgmbjcbf93.82 BSA Calculated1.78 Diagnoses/Problems Weight loss, unintentional (783.21) (R63.4) 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 Hypothyroidism which is controlled with Synthroid. Persistent dysphagia. The patient remains peg dependent. Recent weight loss which is somewhat worrisome. He was meeting with the dietitian today. His weight has now stabilized. I cannot appreciate any worrisome findings on scanning. I will be calling him regarding the results. I will see him at his regular appointment. He knows to call me if he has further concerns. Patient Discussion/Summary No obvious evidence of any recurrence of the patient's previously treated oropharyngeal cancer. Hypothyroidism which is controlled with Synthroid. Persistent dysphagia. The patient remains peg dependent. Recent weight loss which is somewhat worrisome. He was meeting with the dietitian today. His weight has now stabilized. I cannot appreciate any worrisome findings on scanning. I will be calling him regarding the results. I will see him at his regular appointment. He knows to call me if he has further concerns. End of Encounter Meds Azithromycin 200 MG/5ML Oral Suspension Reconstituted; Therapy: [id number] to Recorded Levothyroxine Sodium 75 MCG Oral Tablet; Therapy: [id number] to Recorded Signatures Electronically signed by : Dale Fortune MD; Apr 05 2018 12:23PM EST (Author) CLINIC NOTE - Observed: 04/05/2018 Status: COMPLETED Source: [place] [facility] 10:50 AM HOSPITALS REPOSITORY Note Types: Note Type: Follow Up Note Author: Note Authored by: Registered Dietitian Costume Cutter (RDN) Pager Number: [phone] Nutrition Note: The patient is a 53 year old Male with Right base of tongue cancer diagnosed in 2009, treated with surgery, chemo, radiation. Patient remains NPO and is PEG tube dependent. He does not have insurance coverage for his TF or supplies and uses the [employer], so his TF formulation may change from shipment to shipment. He is currently taking Isosource 1.5- 6 to 8 cans daily. He says sometimes he falls asleep before his last feeding. Denies any N/V/D/C or reflux. The only formula he did not tolerate was Jevity 1.5. Height/Weight: Height in feet: 5 feet Height in inches: 9 inch(es) Height in cm: 175.2 centimeter(s) Weight in lbs: 141 pound(s) Weight (kg): 64 BMI (kg/m2): 20.85 square meter DBW (kg): 72.7 %DBW: 88 Weight history/ % weight change: 08-04-2016 wt 158# 03-02-2017 wt 158# 03-01-2018 wt 139.7# 04-05-2018 wt 141# Significant Weight Change: yes Allergies and Intolerances: Allergies: Reglan: Drug, Mood Alteration, Psychosis, Active Outpatient Medication/Rx Yoga Coordinator: * Outpatient Medication Status not yet specified Food / Nutrition Related History: Intake: NPO GI Symptoms: none Oral Problems: dysphagia Mobility: normal activity, still working, but gets very tired by the end of the day Muscle Wasting: Temporal: no Shoulder: no Clavicle: yes Scapula/Back: no Interosseous: no Quadriceps: no Calf: no Loss of Subcutaneous Fat: Eyes: no Perioral: defer Triceps: yes Other Physical Findings: Hair: negative Eyes: negative Nails: negative Edema: none Change in Metabolic Demand: yes Estimated Needs: kcals/day: 2700+ gms protein/day: 110-120 mL fluid/day: 8395-7648 Nutrition Diagnosis: Diagnosis1 resolved. Dx: Unintended weight loss. related to patient not having standard TF formula on a daily basis as well as potential increased metabolic demands as evidenced by use of [employer] for TF supplies and weight history as well as physical findings. Diagnosis2 ongoing. Dx: Swallowing difficulties. related to dysphagia associated with H&N cancer/tx as evidenced by continued dependence on PEG for nutrition support. Additional Assessment Information: No further weight loss; up 1 lb over the last month. TF remains tolerated. Despite efforts, still unable to get formula and supplies covered through insurance. Nutrition Interventions: Individualized Nutrition Prescription Provided for: enteral nutrition Enteral/Parenteral Nutrition Support: Insurance will not cover formula or supplies. Patient continues to rely on donations and the [employer]. He uses syringe for feeding. Isosource 1.5, goal is 8 cans daily (3000 calories, 136 g protein, 1560 ml free water) Discussed replacing 1 Isosource carton with Boost VHC daily (530 kcal, 22gm protein). He is aware this can be purchased at a discounted rate through [facility]. Continue same water flushes-480ml/feeding Coordination of Care with: ENT Nutrition Goals: Nutrition Goals: adequate fluid intake, nutrition support goals are met, gradual weight gain Monitor Plan: Monitoring and Evaluation Plan: fluid intake/adequacy Nutrition Support tolerance/adequacy weight trend overall appearance Nutrition Education: Education Provided to: patient, family Anticipated Compliance: good Follow up: will follow as needed Electronic Signatures: Cynthia Diallo (ELSY, LD) (Signed 05-Apr-2018 11:03) Authored: Nutrition Note Last Updated: 05-Apr-2018 11:03 by Cynthia Diallo (ANALYN, LD) NR CT NECK WITH Observed: 04/05/2018 Status: F Source: [facility] 10:05 AM [facility]ITALS REPOSITORY Patient Name: JOANA TEE STUDY: CT NECK WITH CONTRAST; 04/05/2018 10:05 am INDICATION: Signs/Symptoms: hx oropharyngeal cancer, chronic fatigue, unintentional weight loss. COMPARISON: 10/20/2010 ACCESSION NUMBER(S): [id number] ORDERING CLINICIAN: DALE FORTUNE TECHNIQUE: Axial CT images of the neck were obtained. The patient received 120 cc Optiray 350 intravenous contrast agent. The images were reformatted in angled axial, coronal and sagittal planes. FINDINGS: There remains evidence of previous extensive right neck dissection. Surgical clips remain in the right submandibular space. Oral Cavity, Pharynx and Larynx: Evaluation oral cavity is mildly limited by streak artifact from dental hardware. The nasopharynx is patent with slight asymmetry of soft tissue right thicker than the left but no focal mass. There is right tongue atrophy with widely patent oropharynx. The hypopharynx and larynx appears unremarkable. Retropharyngeal and Prevertebral Soft Tissues: Unremarkable. Lymph nodes: No abnormal lymph nodes detected. Neck vessels: Bilateral neck vessels are normal in course and caliber and appear patent. Thyroid gland: The thyroid gland is unremarkable in size and appearance. Parotid and submandibular glands: Bilateral parotid and left submandibular glands are unremarkable in appearance. A residual right submandibular gland is not visualized consistent with resection. Paranasal Sinuses and Mastoids: Visualized paranasal sinuses and bilateral mastoids are clear. Visualized orbital structures are unremarkable. Visualized upper lungs are clear. There are scattered areas of mild right foraminal compromise from bony hypertrophy. No apparent cervical spinal canal stenosis. IMPRESSION: Postop changes right neck dissection without apparent recurrent mass or lymphadenopathy. Interpreted within [place], [place] Electronically signed by: OMID RUTHERFORD MD, PHD TH CT CHEST W Observed: 04/05/2018 Status: F Source: [facility] 10:05 AM [facility]OSPITALS REPOSITORY Patient Name: JOANA TEE STUDY: CT ABDOMEN AND PELVIS WITH CONTRAST; CT CHEST W CONTRAST; 04/05/2018 10:05 am INDICATION: Signs/Symptoms: hx oropharyngeal cancer, chronic fatigue, unintentional weight loss; assess for pulm mets. COMPARISON: CT scan chest 03/31/2011. ACCESSION NUMBER(S): [id number]; [id number] ORDERING CLINICIAN: DALE FORTUNE TECHNIQUE: CT of the chest, abdomen, and pelvis was performed. Contiguous axial images were obtained at 3 mm slice thickness through the chest, abdomen and pelvis. Coronal and sagittal reconstructions at 3 mm slice thickness were performed. 120 ml of contrast Optiray 350 were administered intravenously without immediate complication. FINDINGS: CHEST: LUNG/PLEURA/LARGE AIRWAYS: There is no pleural effusion or pneumothorax. Soft tissue nodule in the right upper lobe measuring 7 X 8 mm, new compared to prior study (image 95 of 334) Patchy ground-glass opacities in right upper lobe, right lower lobe and left lower lobe, in new locations compared to prior exam associated. There has been interval resolution of previously noted ground-glass opacities. VESSELS: Aorta and pulmonary arteries are normal caliber. Incidental 2 vessel aortic arch noted. No atherosclerotic changes of the aorta are identified. No coronary artery calcifications are present. HEART: The heart is normal in size. There is no major pericardial effusion. MEDIASTINUM AND DYAN: No mediastinal, hilar or axillary lymphadenopathy is present. Esophagus: Within normal limits. CHEST WALL AND LOWER NECK: The soft tissues of the chest wall demonstrate no gross abnormality. The visualized thyroid gland appears within normal limits. ABDOMEN: LIVER: The liver is normal in size without evidence of focal liver lesions. BILE DUCTS: The intrahepatic and extrahepatic ducts are not dilated. GALLBLADDER: Gallbladder present. PANCREAS: The pancreas appears unremarkable without evidence of ductal dilatation or masses. SPLEEN: The spleen is normal in size, small accessory spleen noted. ADRENAL GLANDS: Bilateral adrenal glands appear normal with no focal lesion. KIDNEYS AND URETERS: The kidneys are normal in size and enhance symmetrically. No hydroureteronephrosis or nephroureterolithiasis is identified. PELVIS: BLADDER: The urinary bladder appears normal without abnormal wall thickening. REPRODUCTIVE ORGANS: No pelvic masses. BOWEL: Gastrostomy tube noted with tip in stomach. The small bowel is normal in appearance without wall thickening or obstruction. The appendix is surgically absent, prior surgical changes noted. Large bowel to articular noted without inflammation. VESSELS: There is no aneurysmal dilatation of the abdominal aorta. The IVC appears normal. PERITONEUM/RETROPERITONEUM/LYMPH NODES: No ascites or free air, no fluid collection. BONE AND SOFT TISSUE: Tiny bony islands in bilateral femoral head and acetabulum. Previously noted bilateral pars defect at the level of L5 over S1 with grade 2 anterolisthesis. IMPRESSION: CHEST: 1. New lung nodule as above, concerning for metastasis disease considering patient's clinical history. Short term, 2-3 month follow-up is recommended. 2. New pulmonary small patchy ground-glass opacities. These are non-specific and could relate to infection, inflammation or simply altered perfusion. Attention on future imaging is recommended. ABDOMEN-PELVIS: 1. Gastrostomy tube with tip in the stomach 2. Status post appendectomy 3. Grade 2 anterolisthesis of L5 on S1 I personally reviewed the images/study and I agree with the findings as stated. This study was interpreted at [place], [place]. Electronically signed by: PETE LINDSAY MD, PHD BD CT ABDOMEN AND Observed: 04/05/2018 Status: F Source: [facility] PELVIS WITH CONTRAST 10:05 AM HOSPITALS REPOSITORY Patient Name: JOANA TEE STUDY: CT ABDOMEN AND PELVIS WITH CONTRAST; CT CHEST W CONTRAST; 04/05/2018 10:05 am INDICATION: Signs/Symptoms: hx oropharyngeal cancer, chronic fatigue, unintentional weight loss; assess for pulm mets. COMPARISON: CT scan chest 03/31/2011. ACCESSION NUMBER(S): [id number]; [id number] ORDERING CLINICIAN: DALE FORTUNE TECHNIQUE: CT of the chest, abdomen, and pelvis was performed. Contiguous axial images were obtained at 3 mm slice thickness through the chest, abdomen and pelvis. Coronal and sagittal reconstructions at 3 mm slice thickness were performed. 120 ml of contrast Optiray 350 were administered intravenously without immediate complication. FINDINGS: CHEST: LUNG/PLEURA/LARGE AIRWAYS: There is no pleural effusion or pneumothorax. Soft tissue nodule in the right upper lobe measuring 7 X 8 mm, new compared to prior study (image 95 of 334) Patchy ground-glass opacities in right upper lobe, right lower lobe and left lower lobe, in new locations compared to prior exam associated. There has been interval resolution of previously noted ground-glass opacities. VESSELS: Aorta and pulmonary arteries are normal caliber. Incidental 2 vessel aortic arch noted. No atherosclerotic changes of the aorta are identified. No coronary artery calcifications are present. HEART: The heart is normal in size. There is no major pericardial effusion. MEDIASTINUM AND DYAN: No mediastinal, hilar or axillary lymphadenopathy is present. Esophagus: Within normal limits. CHEST WALL AND LOWER NECK: The soft tissues of the chest wall demonstrate no gross abnormality. The visualized thyroid gland appears within normal limits. ABDOMEN: LIVER: The liver is normal in size without evidence of focal liver lesions. BILE DUCTS: The intrahepatic and extrahepatic ducts are not dilated. GALLBLADDER: Gallbladder present. PANCREAS: The pancreas appears unremarkable without evidence of ductal dilatation or masses. SPLEEN: The spleen is normal in size, small accessory spleen noted. ADRENAL GLANDS: Bilateral adrenal glands appear normal with no focal lesion. KIDNEYS AND URETERS: The kidneys are normal in size and enhance symmetrically. No hydroureteronephrosis or nephroureterolithiasis is identified. PELVIS: BLADDER: The urinary bladder appears normal without abnormal wall thickening. REPRODUCTIVE ORGANS: No pelvic masses. BOWEL: Gastrostomy tube noted with tip in stomach. The small bowel is normal in appearance without wall thickening or obstruction. The appendix is surgically absent, prior surgical changes noted. Large bowel to articular noted without inflammation. VESSELS: There is no aneurysmal dilatation of the abdominal aorta. The IVC appears normal. PERITONEUM/RETROPERITONEUM/LYMPH NODES: No ascites or free air, no fluid collection. BONE AND SOFT TISSUE: Tiny bony islands in bilateral femoral head and acetabulum. Previously noted bilateral pars defect at the level of L5 over S1 with grade 2 anterolisthesis. IMPRESSION: CHEST: 1. New lung nodule as above, concerning for metastasis disease considering patient's clinical history. Short term, 2-3 month follow-up is recommended. 2. New pulmonary small patchy ground-glass opacities. These are non-specific and could relate to infection, inflammation or simply altered perfusion. Attention on future imaging is recommended. ABDOMEN-PELVIS: 1. Gastrostomy tube with tip in the stomach 2. Status post appendectomy 3. Grade 2 anterolisthesis of L5 on S1 I personally reviewed the images/study and I agree with the findings as stated. This study was interpreted at [facility], [place], [place]. Electronically signed by: PETE LINDSAY MD, PHD BUN Collected: 03/30/2018 Status: F Source: [place] 9:08 AM [facility] TYPE CODE TESTS RESULT OUT OF RANGE REFERENCE UNITS LAB L501.1000 7-18 mg/dL High BUN 23 Performed By: #### L501.1000, L501.1105 #### [facility] [address] [place], [address] SERUM CREATININE AND Collected: 03/30/2018 Status: F Source: [place] GFR 9:08 AM [facility] HOSPITAL REPOSITORY TYPE CODE TESTS RESULT OUT OF RANGE REFERENCE UNITS LAB L501.1100 0.70-1.30 mg/dL Normal 1.10 CREAT,SERUM Result Comment: The validity of the calculated GFR AND GFRAA in patients over 70 years has not been determined. Clinical correlation is essential. LAB L501.1110 >60 mL/min Normal EST GFR 74 Result Comment: Non- GFR Calc LAB L501.1115 >60 mL/min Normal EST GFR - AA 90 Result Comment: GFR Calc Performed By: #### L501.1000, L501.1105 #### [facility] [address] [place], [address] AMB - NARRATIVE Observed: 03/02/2018 Status: UNK Source: [facility] NOTE-SOCIAL WORK 2:30 PM HOSPITALS REPOSITORY Discipline and Description: Discipline: Social Work Description: Joana Tee is a [age] year old male who had a previous diagnosis of head and neck cancer. He was referred to social work by Nat Ha RN, MSN for assistance as the patient is asking for guidance with regard to applyng for Social security Disability. I met with him on March 01, 2018. I learned that Mr. Tee resides in [place], [place]. He is , his was present during this assessment. He has two biological children, both sons and several adopted and adopted children. Currently in the home they have two underage children (ages 7 and 10) and a young adult. They also have a large support sytem of family and friends. 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 Most of his work is done through [employer]. Mr. tee states that it is becoming increasingly more difficult to mange through the day and when he is done working he is exhausted in the evening. He no longer has the energy to attend the activities of his younger children. He also states that he is losing weight despite remaining peg tube dependent. I learned that he and his have investigated some with SSD. He is aware that he would need to stop working before an application can be initiated. He is also aware that Medicare benefits will not be given to him for two yers if he is approved for SSD. He is well aware of the cost of COBRA insurance. He also has concerns with regard to the waiting period of six months. In short, we agreed to the following plan: I gave them the telephone for Triage Cancer to discuss with Elizabeth their specific concerns and get questions answered. As this organization is based in [place] it was too early to call during the assessment. We also agreed that if he gained weight and his energy improved we would not pursue SSD. However, if his energy did not improve and he contues to lose weight Dr. Fortune would order diagnostic testing and we would proceed from that point. They have my contact number should any needs arise. Electronic Signatures: Bethany Demarco (BEV) (Signed 02-Mar-2018 14:42) Authored: Discipline and Description Last Updated: 02-Mar-2018 14:42 by Bethany Demarco (BEV) ESTABLISHED VISIT Observed: 03/01/2018 Status: UNK Source: [place] (OTOLARYNGOLOGY) 5:53 PM HOSPITALS REPOSITORY Chief Complaint Follow up status post treatment of a base of tongue cancer History of Present Illness This patient first presented with a T4 N1 lesion of his right base of tongue back in March of 2010. He had persistent disease after chemoradiation and had surgery back in September of 2010. He denies any p ain or discomfort. He does have obstructive sleep apnea and uses his CPAP. He is also hypothyroid and is on Synthroid. He had a TSH level back in August 2017 which was normal. He also had a chest x-ra y at that time which was also normal. He is almost totally peg dependent. He has lost approximately 20 pounds recently. He complains of fatigue. Nothing really has changed from the head and neck point of view. 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) Added by Problem List Migration; 2013-03-29; Moved to Suppressed Jul 26 2013 4:09PM Observation, malignant neoplasm, suspected (V71.1) (Z03.89) SILVIA on CPAP (327.23,V46.8) (G47.33,Z99.89) Weight loss, unintentional (783.21) (R63.4) Family History Family history of malignant neoplasm (V16.9) (Z80.9) Family history of malignant neoplasm (V16.9) (Z80.9) Social History Denied: History of Drinking alcohol regularly, feeling guilty about it Never a smoker Denied: History of Smoker Allergies Reglan SOLN Recorded By: Beverly Dleeon; 09/19/2013 12:27:01 PM Current Meds Levothyroxine Sodium 75 MCG Oral Tablet; Therapy: [id number] to Recorded Rx By: FABIOLA; Dispense: 30 Days ; #:30 TABS; Refill: 0; PIEDAD = N; Record; Last Updated By: Arlet Escoto; 08/04/2016 8:56:27 AM Vitals Vital Signs Recorded: 01Mar2018 10:38AM Jvgijj882 lb 7 oz BMI Cfgmoemrdz35.59 BSA Calculated1.77 Physical Exam On examination of the oral cavity and oropharynx there is no evidence of any suspicious lesions. There is good mobility of the residual tongue. There is good mandibular excursion. Palpation of the parot id, neck, thyroid field fails to show any worrisome masses or adenopathies. A flexible laryngoscopy was carried out. Under topical Xylocaine and Saeid-Synephrine the scope was introduced through the nostril. The nasopharynx, base of tongue, hypopharynx, and larynx are visualized. The vocal cords are normally mobile. There is no evidence of any mucosal lesions. The anatomy is significantly distorted. At the same time there is no worrisome lesions. 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 Hypothyroidism which is controlled with Synthroid. Persistent dysphagia. The patient remains peg dependent. Recent weight loss which is somewhat worrisome. He was meeting with the dietitian today. He continues to lose weight he is to let me know and I will order some scanning. I will see him in 6 months. Patient Discussion/Summary No obvious evidence of any recurrence of the patient's previously treated oropharyngeal cancer. Hypothyroidism which is controlled with Synthroid. Persistent dysphagia. The patient remains peg dependent. Recent weight loss which is somewhat worrisome. He was meeting with the dietitian today. He continues to lose weight he is to let me know and I will order some scanning. I will see him in 6 months. End of Encounter Meds Levothyroxine Sodium 75 MCG Oral Tablet; Therapy: [id number] to Recorded Signatures Electronically signed by : Dale Fortune MD; Mar 01 2018 5:53PM EST (Author) CLINIC NOTE - Observed: 03/01/2018 Status: COMPLETED Source: [place] NUTRITION 11:28 AM HOSPITALS REPOSITORY Note Types: Note Type: Assessment Note Author: Note Authored by: Registered Dietitian Costume Cutter (ELSY) Pager Number: [phone] Nutrition Note: The patient is a 53 year old Male with Right base of tongue cancer diagnosed in 2009. patient remains NPO and is PEG tube dependent patient does not have insurance coverage for his TF or supplies He uses the [employer] for his supplies so his TF formulation change from shipment to shipment His spouse tries to procure 1.5cal/cc products preferentially. He was on Isosource 1.5, 8 cans daily (3000 calories, 136 g protein, 1560 ml free water) back in 2016 and it appears that weight was stable on this at 158# In the past year patient is losing weight he is down to 139.7# Per his spouse his energy is low, he is sometimes only taking 6 cans per day of his TF formula available to him. He is coughing more as well. patient continues to work but job is sedentary. Intake 2 cans of TF at 5am, 11:30am and 4-6pm Additionally he takes 8 ounces of water with each TF Isosource 1.5, 6 cans daily (2250 calories, 107g protein, 1170 ml free water) + 720ml free water= 1890ml free water provides 35.5 arnaldo per kg 1.7 g protein per kg 29.8 ml of free water per kg weight loss has occurred despite above. Height/Weight: Height in feet: 5 feet Height in inches: 9 inch(es) Height in cm: 175.2 centimeter(s) Weight in lbs: 139.7 pound(s) Weight (kg): 63.4 BMI (kg/m2): 20.654 square meter DBW (kg): 72.7 %DBW: 87 Weight history/ % weight change: 08-04-2016 wt 158# 03-02-2017 wt 158# 03-01-2018 wt 139.7#- patient with a 18.3# weight loss represents 11.5% weight change in the past year or sooner Significant Weight Change: yes Lab Results: ? Results CBC date/time WBC HGB HCT PLT Neut 13-Oct-2011 10:45 3.2(L) 13.4(L) 40.0(L) 201 N/A BMP date/time NA K CL CO2 BUN CREAT 19-Sep-2013 13:25 139 4.3 103 N/A 23 1.04 Hepatic date/time T Pro T Bili AST ALT ALKP ALB 20-May-2011 03:37 5.7(L) 0.8 14 18 60 3.4 LDH date/time LDH 25-May-2011 05:50 N/A Allergies and Intolerances: Allergies: Reglan: Drug, Mood Alteration, Psychosis, Active Outpatient Medication/Rx Yoga Coordinator: * Outpatient Medication Status not yet specified Food / Nutrition Related History: Intake: NPO GI Symptoms: none Oral Problems: dysphasia Food Allergies / Supplements: Food/Nutrition Related History: noted above Muscle Wasting: Temporal: yes Shoulder: yes Biceps/Triceps: no Loss of Subcutaneous Fat: Eyes: yes Perioral: yes Other Physical Findings: Hair: negative Eyes: negative Edema: none Change in Metabolic Demand: yes Subjective Global Assessment Rating: mild malnutrition Etiology: chronic illness, social or environmental circumstances Estimated Needs: kcals/day: 2700 + gms protein/day: 126 mL fluid/day: 2200 to 2700 Nutrition Diagnosis: Diagnosis1 new. Dx: Unintended weight loss. related to patient not having standard TF formula on a daily basis as well as potential increased metabolic demands as evidenced by use of [employer] for TF supplies and weight history as well as physical findings. Nutrition Interventions: Individualized Nutrition Prescription Provided for: enteral nutrition Fluids: patient needs increased fluids 1 to 3 cups per day (240 to 720ml per day) Additivies (fiber,protein,glutamine): not sure if attempt to get Tf covered by insurance will work discussed potential use of prostat (samples provided) to make up calorie and protein differences- 100 calories and 15 g protein per serving as well as olive oil- 1 tbsp to provide 110 calories Enteral/Parenteral Nutrition Support: will try to re-submit TF orders through [place] Isosource 1.5, 8 cans daily (3000 calories, 136 g protein, 1560 ml free water) would be preferential volume per day for patient and would hopefully permit weight increase Coordination of Care with: [facility] [place] Nutrition Goals: Nutrition Goals: adequate fluid intake, nutrition support goals are met, maintain stable weight, gradual weight gain Monitor Plan: Monitoring and Evaluation Plan: fluid intake/adequacy Nutrition Support tolerance/adequacy weight trend Nutrition Education: Follow up: will follow as needed - business card provided Electronic Signatures: Mary Strange (ELSY, BELEN) (Signed 01-Mar-2018 11:48) Authored: Nutrition Note Last Updated: 01-Mar-2018 11:48 by Mary Strange (ELSY, BELEN) ESTABLISHED VISIT Observed: 02/21/2018 Status: UNK Source: [place] (OTOLARYNGOLOGY) 7:00 PM HOSPITALS REPOSITORY No report was sent ALLERGIES ALLERGIES DATE TYPE / CODE NAME / CODE REACTION SEVERITY SOURCE 06/11/2018 Drug metoclopramide/F Hives Unknown [facility] Allergy/416 [id number]([facility] 221774(SNOM ) Repository ED CT) Drug NO KNOWN [facility] Class/39863 ALLERGIES [facility] 1003(SNOMED Repository CT) ENCOUNTERS ENCOUNTERS ADMIT/DISCHARGE ACCOUNT ADMITTING ENCOUNTER LOCATION SOURCE NUMBER CLASS 09/28/2018 [id number] Ambulatory [facility] Repository 09/18/2018 [id number] Ambulatory [facility] ing:MTRAD Repository 08/16/2018 [id number] ZAIN ARCOS Ambulatory [facility] Repository 08/16/2018 [id number] ZAIN ARCOS Ambulatory [facility] Repository 08/16/2018 [id number] Ambulatory [facility] Repository 08/16/[id number] [facility] Repository 06/11/2018/06/11/20 [id number] Emergency [address] ing:ED Repository 05/17/2018 [id number] Ambulatory [facility] Repository 05/17/2018 [id number] ZAIN ARCOS Ambulatory [facility] Repository 05/02/2018/05/03/20 [id number] ZAIN ARCOS Inpatient [facility] Encounter [id number]: Hospitals [id number]: Repository [id number] 04/29/2018 [id number] [facility] Repository 04/26/2018 [id number] ISRRAELZAIN ALANIS [facility] Repository 04/26/2018 [id number] ISRRAELZAIN ALANIS Ambulatory [facility] Repository 04/05/2018 [id number] [facility] Repository 04/05/[id number] Mar[facility] Repository 04/05/2018 [id number] [facility] Repository 03/30/2018 [id number] [facility] ing:LAB Repository 03/01/[id number] Marilee [facility] Repository 03/01/[id number] Mar[facility] Repository 02/22/[id number] [facility] Repository PAYERS PAYERS ENCOUNTER GUARANTOR PAYER SUBSCRIBER SOURCE 09/18/2018 JOANA L Primary JOANA L [place] [id number] [facility] Number: [id number] 8[address]Iov: ([phone]) [id number] Repository [phone] () Date:[id number] [address]UT: 09/18/2018 Secondary NOT GIVENUNK [place] Insurance:SELF PAY [facility] Number: Effective Repository Date:2018-09-18 08/16/2018 [facility] YODERDOB: Insurance:AnthemPolic YODERDOB: Hospitals y Number: [id number] Repository [place] [id number] [place] Date:Plan Name:[place], [place] [id number]: [phone]: (HP) (HP) 08/16/2018 [facility] YODERDOB: Insurance:AnthemPolic YODERDOB: Hospitals y Number: [id number] Repository [place] [id number] [place] Date:Plan Name:[place], [place] [id number]: [phone]: (HP) (HP) 08/16/2018 [facility] YODERDOB: Insurance:AnthemPolic YODERDOB: [facility] y Number: [id number] Repository [place] [id number] [place] Date:Plan Name:[place], [place] [id number]: [phone]: (HP) (HP) 08/16/2018 [facility] YODERDOB: Insurance:AnthemPolic YODERDOB: Hospitals y Number: [id number] Repository [place] [id number] [place] Date:Plan Name:[place], [place] [id number]: [phone]: (HP) (HP) 06/11/2018 [facility] JOANA Bell [id number] [place] Insurance:ANTHEMPolic YODERDOB: [place], [place] y Number: [id number] [facility] [address]Got: ([phone]) [id number] Repository [phone] (HP) Date:[id number] [address] [address]HR: 06/11/2018 Secondary NOT GIVENUNK [place] Insurance:SELF PAY [facility] Number: Effective Repository Date:2018-06-11 05/17/2018 [facility] YODERDOB: Insurance:AnthemPolic YODERDOB: Hospitals y Number: [id number] Repository [place] [id number] [place] Date:Plan Name:[place], [place] [address]Hkz: [phone]: (HP) [phone] (HP) 05/17/2018 [facility] YODERDOB: Insurance:AnthemPolic YODERDOB: Hospitals y Number: [id number] Repository [place] [id number] [facility] [place] Date:Plan Name:[place], [place] [address]Xii: [phone]: (HP) [phone] (HP) 05/02/2018 [facility] YODERDOB: Insurance:AnthemPolic YODERDOB: Hospitals y Number: [id number] Repository [place] [id number] [place] Date:Plan Name:[place], [place] [address]Ztp: [phone]: (HP) [phone] (HP) 04/29/2018 [facility] YODERDOB: Insurance:AnthemPolic YODERDOB: Hospitals y Number: [id number] Repository [place] [id number] [place] Date:Plan Name:[place], [place] [address]Ubp: [phone]: (HP) [phone] (HP) 04/26/2018 [facility] YODERDOB: Insurance:AnthemPolic YODERDOB: Hospitals y Number: [id number] Repository [place] [id number] [place] Date:Plan Name:[place], [place] [address]Dhb: [phone]: (HP) [phone] (HP) 04/26/2018 [facility] YODERDOB: Insurance:AnthemPolic YODERDOB: Hospitals y Number: [id number] Repository [place] [id number] [place] Date:Plan Name:[place], [place] [address]Uzr: [phone]: (HP) [phone] (HP) 04/05/2018 [facility] YODERDOB: Insurance:AnthemPolic YODERDOB: Hospitals y Number: [id number] Repository [place] [id number] [place] Date:Plan Name:[place], [place] [address]Vjm: [phone]: (HP) [phone] (HP) 04/05/2018 [facility] YODERDOB: Insurance:AnthemPolic YODERDOB: Hospitals y Number: [id number] Repository [place] [id number] [place] Date:Plan Name:[place], [place] [address]Sna: [phone]: (HP) [phone] (HP) 04/05/2018 [facility] YODERDOB: Insurance:AnthemPolic YODERDOB: Hospitals y Number: [id number] Repository [place] [id number] [place] Date:Plan Name:[place], [place] [address]Otk: [phone]: (HP) [phone] (HP) 03/30/2018 [facility] [place] [id number] [place] Insurance:ANTHEMPolic YODERDOB: [place], [place] y Number: [id number] [facility] [address]Lkf: [phone]) [id number] Repository [phone] (HP) Date:[id number] [address]FL: 03/30/2018 Secondary NOT GIVENUNK [place] Insurance:SELF PAY [facility] Number: Effective Repository Date:2018-03-30 03/01/2018 [facility] [facility] YODERDOB: Insurance:[employer] YODERDOB: Hospitals y Number: [id number] Repository [place] [id number] [place], [place] Date:Plan Name:[place], [place] [address]Jrn: [phone]: ([phone] (HP) 03/01/2018 [facility] YODERDOB: Insurance:[employer] YODERDOB: Hospitals y Number: [id number] Repository [place] [id number] [place], [place] Date:Plan Name:[place], [place] [address]Uln: [phone]: ([phone] ([phone] 02/22/2018 [facility] YODERDOB: Insurance:[employer] YODERDOB: [facility] y Number: [id number] [facility] JARVIS [id number] [place], [place] Date:Plan Name:[place], [place] [address]Xie: [phone]: () [phone]
== END ==
PROVIDERS: Family Provider Family Medicine; PCP Family Medicine; Referring Provider Family Medicine; Visit Provider Family Medicine
DX: J20.9 Acute bronchitis, unspecified (principal)
CPT/HCPCS: 71046

== ENCOUNTER → 2019-10-08 08:55 | Outpatient (CLI) | payer BC, SELFPAY ==
[2019-10-08 10:28] LABS: Thyroid Stim Hormone (TSH) 4.02 uIU/mL (0.358-3.74)
== END ==
PROVIDERS: PCP Family Medicine; Referring Provider Family Medicine; Visit Provider Nurse Practitioner Family
DX: E03.9 Hypothyroidism, unspecified (principal)
CPT/HCPCS: 36415; 84443

== ENCOUNTER → 2021-03-11 14:39 | Outpatient (CLI) | payer BC, SELFPAY ==
[2021-03-11 17:56] LABS: Cholesterol 151 mg/dL (200); High Density Lipoprotein 53 mg/dL; PSA,Total - Annual Screen 0.37 ng/mL (0.00-4.00); T4 Total, Thyroxin 8.9 ug/dL (4.5-12.1); Thyroid Stim Hormone (TSH) 2.28 uIU/mL (0.358-3.74); Triglycerides 124 mg/dL; Very Low Density Lipoprotein 25 mg/dL (5-40)
== END ==
PROVIDERS: PCP Family Medicine; Visit Provider Family Medicine
DX: Z00.00 Encounter for general adult medical examination without abnormal findings (principal); E03.9 Hypothyroidism, unspecified; Z12.5 Encounter for screening for malignant neoplasm of prostate
CPT/HCPCS: 36415; 80061; 84153; 84436; 84443; G0103

== ENCOUNTER → 2022-04-12 | Outpatient (CLI) | payer BC, SELFPAY ==
[2022-04-12 18:18] LABS: ALB/GLOB Ratio 1.2 RATIO (0.9-2.4); AST(SGOT) 61 U/L (15-37); Alanine Aminotransfer ALT/SGPT 45 U/L (16-61); Albumin, Serum 3.5 g/dL (3.2-5.0); Alkaline Phosphatase 111 U/L (45-117); Anion Gap 2 (5-15); BUN 26 mg/dL (7-18); BUN/Creat Ratio 19.1 RATIO (10-20); Calcium,Total 9.3 mg/dL (8.5-10.1); Chloride 103 mmol/L (98-107); Creatinine, Serum 1.36 mg/dL (0.70-1.30); EST Glomerular Filtration Rate 57 mL/min (>60); Est Glom Filt Rate - Afr Amer 69 mL/min (>60); Glucose 105 mg/dL (74-106); PSA,Total - Annual Screen 0.43 ng/mL (0.00-4.00); Potassium 4.5 mmol/L (3.5-5.1); Protein, Total 6.5 g/dL (6.4-8.2); Sodium Level 138 mmol/L (136-145); T4 Total, Thyroxin 6.2 ug/dL (4.5-12.1); Thyroid Stim Hormone (TSH) 4.77 uIU/mL (0.358-3.74)
== END | disposition home or self-care (01) ==
LOC: MFPLAB 16:18
PROVIDERS: PCP Family Medicine; Referring Provider Family Medicine; Visit Provider Family Medicine
DX: Z00.00 Encounter for general adult medical examination without abnormal findings (principal); E03.9 Hypothyroidism, unspecified; D02.0 Carcinoma in situ of larynx
CPT/HCPCS: 36415; 80053; 84153; 84436; 84443; G0103

== ENCOUNTER 2022-04-30 17:49 | Emergency (ER) | payer BC, SELFPAY ==
[2022-04-30 17:50] VITALS: BP 173/110; PULSE 77; RESP 20; TEMP 35.9; O2SAT 98; BMI 24.1
--- NOTE | 2022-04-30 18:26 | EDS_ITS ---
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 He states he gets it replaced once a year. It was most recently replaced on Sunday at [facility]. He states he is to have the old kind with a metal ring but it was replaced with a different kind of tubing. He got out of the car and then noticed that his gastrotomy tube fell out. He was told that if it is not replaced quickly that he might have to have surgery. He presents needing a replacement gastrotomy tube. Per RN, he uses a 20 [place] with a 6 mL balloon. He states that they usually put saline within it. [facility] Medical History Feeding tube dysfunction History of throat cancer Lung cancer Home Medications levothyroxine 75 mcg tablet 75 mcg PO DAILY 07/22/17 [History Last Taken 06/10/18] fluoxetine 40 mg capsule 40 mg PO DAILY 06/11/18 [History Last Taken 06/10/18] prednisolone 15 mg/5 mL oral solution 60 mg PO DAILY ##5 06/11/18 [Rx Last Taken Unknown] Allergy/AdvReac Type Severity Reaction Status Date / Time metoclopramide [From Reglan] Allergy Hives Verified 04/30/22 17:52 Social History Smoking Status: Never smoker ROS ROS ED ROS Narrative Constitutional: No fever, no chills. HEENT: No sore throat. No neck pain. No loss of vision. No rhinorrhea. Cardiovascular: No chest pain. No palpitations. No pedal edema. Respiratory: No cough, no shortness of breath. Abdominal: No abdominal pain. No nausea. No vomiting. Tube fell out. Genitourinary: No dysuria. No hematuria. Musculoskeletal: No myalgias. No arthralgias. Neurologic: No headaches. No dizziness. No lightheadedness. Skin: No rash. No change in color. Psychiatric: No depression. No anxiety. EXAM Physical Exam Narrative Exam Narrative: Afebrile. Vital signs noted. HEENT: Normocephalic. Atraumatic. PERRL, EOMI. Neck soft and supple. No point tenderness or step off. Cardiovascular: Regular rate and rhythm. No murmurs, rubs, or gallops appreciated. Respiratory: No tachypnea. Lungs clear to auscultation bilaterally. Gastrointestinal: Abdomen soft, nontender, with normoactive bowel sounds. Positive site of gastrotomy tube near epigastrium. No erythema. No drainage. No rebound or guarding. Neurological: Awake. Alert. Nonfocal, nonlateralizing. Skin: No rash. Normal color. No pallor. Musculoskeletal: No pedal edema. Full range of motion extremities. Const Vital Signs: 04/30/22 17:50 04/30/22 17:53 Temperature 96.7 F L Temperature Source Temporal Pulse Rate 77 Respiratory Rate 20 H Respiratory Effort Normal Non-Labored Blood Pressure 173/110 H Blood Pressure Mean 131 Pulse Ox 98 Oxygen Delivery Method Room Air MDM MDM MDM Narrative Medical decision making narrative: Patient had the box with his G-tube contained within. 20 [place] with 6 mL balloon was inserted without difficulty. Gastrografin KUB will be obtained for proper placement. X-ray/Gastrografin KUB interpreted by myself shows the PEG tube to be in proper position without extravasation of fluid. At this point in time, I feel he can be discharged safely home with follow-up. Return instructions were reviewed. Disposition is discharged home in improved and stable condition. Radiography Diagnostic Testing: Clinical Impression(s) from Imaging Studies KUB X-Ray 04/30/22 18:35 IMPRESSION: 1. PEG tube in satisfactory position. 2. No evidence of acute intra-abdominal process. Electronically Signed: Addi Mohan DO at 19:00 EDT Reading Location ID and State: [address] [place] [address] Tel [phone], Service support , Discharge Plan Triage Chief Complaint: General Illness ED Provider: Miquel Renee Dx/Rx/DC Orders Clinical Impression: Dislodged gastrostomy tube, History of throat cancer Instructions: ED Feeding Tube Replacement Prescriptions: No Action levothyroxine 75 MCG tablet 75 mcg PO DAILY fluoxetine 40 MG capsule 40 mg PO DAILY prednisolone 15 MG/5 ML Solution 60 mg PO DAILY Qty: 5 0RF Primary Care Provider: Mary Hill Referrals: Mary Hill MD [Primary Care Provider] - Disposition Disposition: Home, Self Care
--- NOTE | 2022-04-30 18:35 | RAD_ITS ---
STUDY: X-RAY - ABDOMEN/PELVIS REASON FOR EXAM: Male, 57 years old. PEG tube placement. TECHNIQUE: Single AP view of the abdomen / pelvis following introduction of 60 mL of diluted GASTROGRAFIN via an indwelling PEG tube. COMPARISON: None. FINDINGS: Normal visualized lung bases. There is a PEG tube with its tip in the body of the stomach. Contrast fills the stomach and proximal duodenum. There is no evidence of leakage. There is no reflux. Air and feces is seen throughout nondistended colon. There is no small bowel dilatation. There is no demonstrated free abdominal air. The visualized liver, spleen and kidneys are grossly normal in size and morphology. Normal soft tissue structures. Normal visualized osseous structures. RAD/Abdomen Single View IMPRESSION: 1. PEG tube in satisfactory position. 2. No evidence of acute intra-abdominal process. Electronically Signed: Addi Mohan DO at 19:00 EDT ,
[2022-04-30 19:11] VITALS: PULSE 84; RESP 16; O2SAT 99
== END 2022-04-30 19:11 | disposition home or self-care (01) ==
PROVIDERS: Emergency Provider Emergency Medicine; PCP Family Medicine; Visit Provider Emergency Medicine
DX: K94.23 Gastrostomy malfunction (principal); Z85.818 Personal history of malignant neoplasm of other sites of lip, oral cavity, and pharynx
CPT/HCPCS: 43762; 74018; 99282; A4216

== ENCOUNTER → 2023-05-04 | Outpatient (CLI) | payer BC, SELFPAY ==
[2023-05-04 18:41] LABS: PSA,Total - Annual Screen 0.35 ng/mL (0.00-4.00); Thyroid Stim Hormone (TSH) 2.71 uIU/mL (0.358-3.74)
== END | disposition home or self-care (01) ==
LOC: MFPLAB 16:49
PROVIDERS: PCP Family Medicine; Visit Provider Family Medicine
DX: K62.1 Rectal polyp (principal)
CPT/HCPCS: 36415; 84153; 84443; G0103

== ENCOUNTER 2023-05-28 05:37 | Emergency (ER) | payer BC, SELFPAY ==
[2023-05-28 05:39] VITALS: PULSE 80; RESP 16; TEMP 36.3; O2SAT 99; BMI 28.2
[2023-05-28 05:44] VITALS: BP 192/106; PULSE 86; RESP 14; O2SAT 98
--- NOTE | 2023-05-28 05:50 | EDS_ITS ---
HPI <Dr. Samuel Banuelos MD - Last Filed: 05/28/23 08:04> HPI - GI History of Present Illness Chief Complaint: Abd Pain Informant: patient Abdominal Pain/Flank Pain Onset: Hours (1) Context: Onset with activity (Woke him up from sleep middle of morning) Timing: Continuous Quality: Cramping Location: - (Periumbilical) Current Severity: Moderate Maximum Severity: Moderate Worsened by: Nothing Relieved by: Nothing Nausea/Vomiting/Emesis GI Symptom: Positive for Nausea and Vomiting (Not until here in ED during evaluation) Diarrhea/Melena/Hematochezia GI Symptom: Positive for - (Had bowel movement after discomfort started, normal, and without change in discomfort); Negative for Diarrhea, Melena or Hematochezia Associated Symptoms Associated Symptoms: Negative for Dysuria, Frequency, Hematuria or Urgency Narrative Narrative: Patient woke up with this discomfort has not had before, feels like cramping periumbilical nonlocalized, radiates into his back all the way across the middle. He had throat cancer, so he takes nothing orally, everything through feeding tube and that is not new. He has had no issues with it. With regards to his abdomen, he had a prior appendectomy but it needed to be open because his appendix burst. [facility] <Dr. Samuel Banuelos MD - Last Filed: 05/28/23 08:04> [facility] Medical History (Updated 05/28/23 @ 07:[address] Samuel Banuelos MD) Feeding tube dysfunction Gastrostomy tube in place History of throat cancer Lung cancer Home Medications hyoscyamine sulfate 0.125 mg/5 mL oral elixir 0.25 mg (10 mL) feeding tube Q6H PRN abdominal discomfort #473 mL 05/28/23 [Rx Last Taken Unknown] levothyroxine 100 mcg tablet 100 mcg PO DAILY 05/28/23 [History Last Taken Unknown] ondansetron HCl 4 mg/5 mL oral solution 8 mg (10 mL) feeding tube Q8H PRN nausea and vomiting #100 mL 05/28/23 [Rx Last Taken Unknown] pantoprazole 40 mg granules delayed-release for susp in packet 40 mg feeding tube DAILY #14 ea 05/28/23 [Rx Last Taken Unknown] Allergy/AdvReac Type Severity Reaction Status Date / Time metoclopramide [From Reglan] Allergy Hives Verified 05/28/23 05:38 Surgical History (Updated 05/28/23 @ 05:[address] Samuel Banuelos MD) History of appendectomy Social History Smoking Status: Never smoker ROS <Dr. Samuel Banuelos MD - Last Filed: 05/28/23 08:04> ROS ED Constitutional Constitutional ED: Denies chills or fever(s) Eyes Eyes: Denies change in vision or diplopia ENT ENT ED: Denies rhinorrhea or sore throat Cardiovascular Cardiovascular: Denies chest pain or palpitations Respiratory/Chest Respiratory/Chest: Denies cough or dyspnea Gastrointestinal Gastrointestinal: Reports abdominal pain, nausea and vomiting; Denies diarrhea Genitourinary Genitourinary ED: Denies dysuria or hematuria Musculoskeletal Musculoskeletal: Reports back pain; Denies neck pain Integumentary Denies abscess or rash Neurologic Neurologic: Denies headache(s), paresthesias or weakness Psychiatric Psychiatric: Denies anxiety or suicidal thoughts EXAM <Dr. Samuel Banuelos MD - Last Filed: 05/28/23 08:04> Physical Exam Const Vital Signs: 05/28/23 05:39 05/28/23 05:44 05/28/23 06:54 Temperature 97.3 F L Temperature Source Temporal Pulse Rate 80 86 78 Respiratory Rate 16 14 20 H Blood Pressure 192/106 H 144/90 H Blood Pressure Mean 134 108 Pulse Ox 99 98 98 Oxygen Delivery Method 05/28/23 07:41 Temperature Temperature Source Pulse Rate 79 Respiratory Rate 16 Blood Pressure 129/79 H Blood Pressure Mean 95 Pulse Ox 98 Oxygen Delivery Method Room Air Positive well nourished and well developed Constitutional Narrative: Well appearing in no distress until patient starts vomiting/dry heaving, then he is diaphoretic. General Appearance ED: well developed and NAD HEENT Reports moist mucous membranes normocephalic and atraumatic Eyes PERRL and EOMs intact bilaterally Neck full ROM and supple Resp normal respiratory effort and clear to auscultation bilaterally Cardio regular rate, regular rhythm and no murmurs GI non-tender and non-distended Auscultation: normoactive bowel sounds Palpation: soft Back/Spine no CVA tenderness General Back: other FROM Extremity normal to inspection General Extremety ED: Negative for edema, pulses abnormal or tenderness General Extremity: Negative for edema or pulses abnormal Neuro oriented x3, CN's II-XII intact bilaterally and no sensory deficits noted Sensorium / Orientation: awake and alert Motor Exam: strength 5/5 throughout Skin no rashes or lesions noted and no wounds <Miquel Renee MD - Last Filed: 05/28/23 08:57> Physical Exam Const Vital Signs: 05/28/23 05:39 05/28/23 05:44 05/28/23 06:54 Temperature 97.3 F L Temperature Source Temporal Pulse Rate 80 86 78 Respiratory Rate 16 14 20 H Blood Pressure 192/106 H 144/90 H Blood Pressure Mean 134 108 Pulse Ox 99 98 98 Oxygen Delivery Method 05/28/23 07:41 Temperature Temperature Source Pulse Rate 79 Respiratory Rate 16 Blood Pressure 129/79 H Blood Pressure Mean 95 Pulse Ox 98 Oxygen Delivery Method Room Air [facility] <Dr. Samuel Banuelos MD - Last Filed: 05/28/23 08:04> [facility] Narrative Medical decision making narrative: While evaluating patient, he was on the monitor, and his QRS and T wave morphology seemed to change. He was asymptomatic with this with regards to chest symptoms or palpitations, but was actively vomiting/dry heaving. It did not seem to be tachycardic like ventricular tachycardia, but it seemed to change morphology and stay that way for 10 or 20 seconds and then go back. This is of unknown significance, it was seen on the monitor prior to the EKG being obtained. He was doing it often enough that we were able to perform a repeat EKG with the abnormal rhythm, and on my interpretation of both of them, it appears that he has no acute injury pattern, and is going in and out of the left bundle branch block without any change in the actual rhythm which is sinus. It is unknown if this is related to his symptoms or not since he does not have a documented history of this that I know of, as there are no prior EKGs here on this patient. Patient having periumbilical/upper abdominal pain and a very benign abdomen, very high blood pressure with vomiting as he is going in and out of a left bundle branch block. My concern is that this is cardiac in etiology. His initial troponin was within normal limits, while working him up we treated him with some IV fluids, Zofran, and dicyclomine in case this was intestinal, in addition to giving him hydralazine to bring his pressure down. This did help, repeat he is 140/90; later 129/79. However now he is saying that his abdominal pain is worsening and moving into the left flank. Prior to this I did not think an abdominal CT would necessarily be helpful, but now that a kidney stone is in the differential as well we added it and gave him morphine. This helped with his pain, I reexamined him and did a bedside ultrasound. I see no shadowing gallstones or gallbladder wall thickening or pericholecystic fluid, and his sonographic Bennett is negative. He still does not have any reproducible abdominal tenderness, although palpating his epigastrium makes him nauseated. The CT returned negative for anything acute. My interpretation of the CT agrees with that of the radiologist. Is possible this patient simply has an acute gastritis. This could be infectious or this could be inflammatory/irritant. I think the best plan for now since he is doing better is to perform a 2-hour delta troponin, and if negative discharge him home on symptomatic care and a PPI with close outpatient follow-up, which pt agrees with. Discussed with oncoming ED physician for checking repeat troponin. Lab Data Attestation: I reviewed the patient's lab results. Labs: Laboratory Results - last 24 hr 05/28/23 05/28/23 06:05 08:05 WBC 4.6 RBC 4.78 Hgb 15.4 Hct 46.7 MCV 97.7 H MCH 32.2 H MCHC 33.0 RDW Std Deviation 45.3 H RDW Coeff of Gilbert 12.7 Plt Count 199 MPV 12.3 H Immature Gran % (Auto) 0.200 Neut % (Auto) 64.8 Lymph % (Auto) 14.6 L [place] % (Auto) 18.3 H Eos % (Auto) 1.7 Baso % (Auto) 0.4 Absolute Neuts (auto) 3.0 Absolute Lymphs (auto) 0.67 L Nucleated RBC % 0 Sodium 137 Potassium 3.7 Chloride 101 Carbon Dioxide 30.0 Anion Gap 6 BUN 22 H Creatinine 1.03 Estim Creat Clear Calc 69.68 Est GFR (MDRD) Af Amer 95 Est GFR (MDRD) Non-Af 79 BUN/Creatinine Ratio 21.4 H Glucose 120 H Calcium 9.3 Total Bilirubin 0.40 AST 45 H ALT 47 Alkaline Phosphatase 120 H Troponin I High Sens 16 16 Total Protein 7.8 Albumin 4.0 Globulin 3.8 Albumin/Globulin Ratio 1.1 Lipase 36 Radiography Diagnostic Testing: Clinical Impression(s) from Imaging Studies Abdomen/Pelvis CT 05/28/23 06:46 IMPRESSION: No acute findings. NG tube in place with tip in the distal stomach and balloon in the distal gastric antrum. Electronically Signed: Augusta Curtis MD at 7:34 EDT , Clinical Impression(s) from Imaging Studies Abdomen/Pelvis CT 05/28/23 06:46 IMPRESSION: No acute findings. NG tube in place with tip in the distal stomach and balloon in the distal gastric antrum. Electronically Signed: Augusta Curtis MD at 7:34 EDT , Rhythm Strip Rhythm Strip: Sinus Rhythm Rate: 90 Ectopy: PVC(s) (Intermittently in runs) EKG Initial EKG: Attestation: I personally reviewed and interpreted this EKG as follows: Interpretation: Sinus Rhythm and No Acute Injury Pattern Prior EKG tracings: not available for review Prior: No Prior Follow-up EKG: Attestation: I personally reviewed and interpreted this EKG as follows: Interpretation: Sinus Rhythm, No Acute Injury Pattern and LBBB Prior: Changed <Miquel Renee MD - Last Filed: 05/28/23 08:57> [facility] Narrative Medical decision making narrative: While evaluating patient, he was on the monitor, and his QRS and T wave morphology seemed to change. He was asymptomatic with this with regards to chest symptoms or palpitations, but was actively vomiting/dry heaving. It did not seem to be tachycardic like ventricular tachycardia, but it seemed to change morphology and stay that way for 10 or 20 seconds and then go back. This is of unknown significance, it was seen on the monitor prior to the EKG being obtained. He was doing it often enough that we were able to perform a repeat EKG with the abnormal rhythm, and on my interpretation of both of them, it appears that he has no acute injury pattern, and is going in and out of the left bundle branch block without any change in the actual rhythm which is sinus. It is unknown if this is related to his symptoms or not since he does not have a documented history of this that I know of, as there are no prior EKGs here on this patient. Patient having periumbilical/upper abdominal pain and a very benign abdomen, very high blood pressure with vomiting as he is going in and out of a left bundle branch block. My concern is that this is cardiac in etiology. His initial troponin was within normal limits, while working him up we treated him with some IV fluids, Zofran, and dicyclomine in case this was intestinal, in addition to giving him hydralazine to bring his pressure down. This did help, repeat he is 140/90; later 129/79. However now he is saying that his abdominal pain is worsening and moving into the left flank. Prior to this I did not think an abdominal CT would necessarily be helpful, but now that a kidney stone is in the differential as well we added it and gave him morphine. This helped with his pain, I reexamined him and did a bedside ultrasound. I see no shadowing gallstones or gallbladder wall thickening or pericholecystic fluid, and his sonographic Bennett is negative. He still does not have any reproducible abdominal tenderness, although palpating his epigastrium makes him nauseated. The CT returned negative for anything acute. My interpretation of the CT agrees with that of the radiologist. Is possible this patient simply has an acute gastritis. This could be infectious or this could be inflammatory/irritant. I think the best plan for now since he is doing better is to perform a 2-hour delta troponin, and if negative discharge him home on symptomatic care and a PPI with close outpatient follow-up, which pt agrees with. Discussed with oncoming ED physician for checking repeat troponin. Dr. Renee: Patient endorsed to me by Dr. Banuelos to check the delta troponin on this patient with upper epigastric abdominal pain. I reviewed his previous troponin and it was 16. Second troponin, 2-hour, has returned and is also 16. At this point in time, I do feel that he can be discharged safely home with follow-up to his primary care provider as planned. Return instructions to the emergency department were reviewed. Disposition is discharged home in stable condition. Lab Data Labs: Laboratory Results - last 24 hr 05/28/23 05/28/23 06:05 08:05 WBC 4.6 RBC 4.78 Hgb 15.4 Hct 46.7 MCV 97.7 H MCH 32.2 H MCHC 33.0 RDW Std Deviation 45.3 H RDW Coeff of Gilbert 12.7 Plt Count 199 MPV 12.3 H Immature Gran % (Auto) 0.200 Neut % (Auto) 64.8 Lymph % (Auto) 14.6 L [place] % (Auto) 18.3 H Eos % (Auto) 1.7 Baso % (Auto) 0.4 Absolute Neuts (auto) 3.0 Absolute Lymphs (auto) 0.67 L Nucleated RBC % 0 Sodium 137 Potassium 3.7 Chloride 101 Carbon Dioxide 30.0 Anion Gap 6 BUN 22 H Creatinine 1.03 Estim Creat Clear Calc 69.68 Est GFR (MDRD) Af Amer 95 Est GFR (MDRD) Non-Af 79 BUN/Creatinine Ratio 21.4 H Glucose 120 H Calcium 9.3 Total Bilirubin 0.40 AST 45 H ALT 47 Alkaline Phosphatase 120 H Troponin I High Sens 16 16 Total Protein 7.8 Albumin 4.0 Globulin 3.8 Albumin/Globulin Ratio 1.1 Lipase 36 Radiography Diagnostic Testing: Clinical Impression(s) from Imaging Studies Abdomen/Pelvis CT 05/28/23 06:46 IMPRESSION: No acute findings. NG tube in place with tip in the distal stomach and balloon in the distal gastric antrum. Electronically Signed: Augusta Curtis MD at 7:34 EDT , Discharge Plan Triage Chief Complaint: Abd Pain ED Provider: Samuel Banuelos Dx/Rx/DC Orders Clinical Impression: Episode of hypertension, Acute gastritis without bleeding, LBBB (left bundle branch block) Instructions: Blood Pressure Check Steps, ED Gastritis (Adult) Prescriptions: New ondansetron HCl 4 mg/5 mL solution 8 mg feeding tube Q8H PRN (Reason: nausea and vomiting) Qty: 100 0RF pantoprazole [address] for susp in packet 40 mg feeding tube DAILY Qty: 14 0RF hyoscyamine sulfate 0.125 mg/5 mL elixir 0.25 mg feeding tube Q6H PRN (Reason: abdominal discomfort) Qty: 473 0RF No Action levothyroxine 100 mcg tablet 100 mcg PO DAILY Primary Care Provider: Mary Hill Referrals: Mary Hill MD [Primary Care Provider] - 3-5 Days if not improving
[2023-05-28] MEDS: Ondansetron 4 MG/2 ML Vial IV (06:05)
[2023-05-28] MEDS: hydrALAZINE 20 MG/ML Vial 10 MG IV (06:05)
[2023-05-28] MEDS: 0.9% Normal Saline (1000mL) 1,000 ML 125 ML IV (06:05)
[2023-05-28] MEDS: Dicyclomine 20 MG/2 ML Vial IM (06:10)
[2023-05-28 06:18] LABS: Absolute Lymphocyte Count 0.67 X10^3/uL (0.83-4.51); Basophil# 0.02 X10^3/uL; Basophil% 0.4 % (0-1); Eosinophil# 0.08 X10^3/uL; Eosinophils% 1.7 % (0-5); Hematocrit 46.7 % (40-54); Hemoglobin 15.4 g/dL (13.0-16.5); Lymphocyte # 0.67 X10^3/ul (0.83-4.51); Lymphocyte % 14.6 % (19-41); Mean Corpuscular Hgb 32.2 pg (27.0-32.0); Mean Corpuscular Volume 97.7 fL (80-94); Mean Platelet Vol. 12.3 fl (6.2-12.0); Monocyte# 0.84 X10^3/uL; Monocyte% 18.3 % (0-10); NRBC Flagged by Analyzer 0 % (0-5); Neutrophil # 2.97 X10^3/uL (2.7-7.7); Neutrophil % 64.8 % (47-70); Platelet Count 199 K/mm3 (150-450); RBC Distribution Width CV 12.7 % (11.6-14.6); RBC Distribution Width SD 45.3 fl (35.1-43.9); Red Blood Count 4.78 M/mm3 (4.6-6.2); White Blood Count 4.6 K/mm3 (4.4-11.0)
[2023-05-28 06:33] LABS: ALB/GLOB Ratio 1.1 RATIO (0.9-2.4); AST(SGOT) 45 U/L (15-37); Alanine Aminotransfer ALT/SGPT 47 U/L (16-61); Alkaline Phosphatase 120 U/L (45-117); Anion Gap 6 (5-15); BUN 22 mg/dL (7-18); BUN/Creat Ratio 21.4 RATIO (10-20); Calcium,Total 9.3 mg/dL (8.5-10.1); Chloride 101 mmol/L (98-107); Creatinine, Serum 1.03 mg/dL (0.70-1.30); EST Glomerular Filtration Rate 79 mL/min (>60); Est Glom Filt Rate - Afr Amer 95 mL/min (>60); Estimated Creatinine Clearance 69.68 ml/min; Globulin 3.8 g/dL (2.2-4.2); Glucose 120 mg/dL (74-106); Lipase 36 U/L (13-75); Potassium 3.7 mmol/L (3.5-5.1); Protein, Total 7.8 g/dL (6.4-8.2); Sodium Level 137 mmol/L (136-145); Troponin-I HS 16 pg/mL (3.0-78.0)
--- NOTE | 2023-05-28 06:39 | NURSING ---
NO OLD EKG
--- NOTE | 2023-05-28 06:46 | CT_ITS ---
EXAM: CT Abdomen And Pelvis W/O Contrast Injection HISTORY: L flank pain CRAMPING ABD PAIN, NAUSEA, BURPING, MID BACK PAIN, GASTROTOMY TUBE, THROAT CA, LUNG CA, APPY TECHNIQUE: Routine protocol CT abdomen and pelvis. IV Contrast: None.. Oral contrast: None. RADIATION DOSAGE (If Supplied By Facility): CTDIvol = ( 6.76 ) mGy, DLP = ( 324.14 ) mGycm Individualized dose optimization techniques were used for this CT. COMPARISON: None. LIMITATIONS: None. FINDINGS: LOWER CHEST: Reticular opacities in the lower lungs likely scarring. LIVER: Grossly unremarkable. GALLBLADDER AND BILIARY TREE: Grossly unremarkable. PANCREAS: Grossly unremarkable. SPLEEN: Grossly unremarkable. ADRENAL GLANDS: Grossly unremarkable. KIDNEYS AND URETERS: No calculi demonstrated. No hydronephrosis. PERITONEUM: No free air. No free fluid. BOWEL: G-tube in place with tip in the distal stomach, the balloon in the distal gastric antrum. No bowel obstruction. APPENDIX: Surgically absent. VESSELS: Abdominal aorta is normal caliber. REPRODUCTIVE ORGANS: Grossly unremarkable URINARY BLADDER: Grossly unremarkable. ABDOMINAL WALL: Unremarkable. BONES: No acute abnormalities. Bilateral pars defects at L5 with grade 1 spondylolisthesis L5-S1, and degenerative changes. CT/Abdomen/Pelvis without Cont IMPRESSION: No acute findings. NG tube in place with tip in the distal stomach and balloon in the distal gastric antrum. Electronically Signed: Augusta Curtis MD at 7:34 EDT ,
[2023-05-28] MEDS: Morphine 4 MG/ML Syringe IV (06:52)
[2023-05-28 06:54] VITALS: BP 144/90; PULSE 78; RESP 20; O2SAT 98
[2023-05-28 07:41] VITALS: BP 129/79; PULSE 79; RESP 16; O2SAT 98
[2023-05-28 08:37] LABS: Troponin-I HS 16 pg/mL (3.0-78.0)
[2023-05-28] MEDS: Pantoprazole Sodium 40 MG in 0.9% Normal Saline (100mL MB+) 100 ML 330 MG IV (09:01)
[2023-05-28 09:02] VITALS: BP 137/84; PULSE 75; RESP 14; O2SAT 98
== END 2023-05-28 09:28 | disposition home or self-care (01) ==
LOC: ED 06:47
PROVIDERS: Emergency Provider Emergency Medicine; PCP Family Medicine; Visit Provider Emergency Medicine
DX: K29.00 Acute gastritis without bleeding (principal); Z93.1 Gastrostomy status; I10 Essential (primary) hypertension; I44.7 Left bundle-branch block, unspecified; Z85.89 Personal history of malignant neoplasm of other organs and systems; Z85.118 Personal history of other malignant neoplasm of bronchus and lung; Z90.49 Acquired absence of other specified parts of digestive tract
CPT/HCPCS: 74176; 80053; 83690; 84484; 85025; 93005; 96361; 96365; 96372; 96375; 99283; J7030; A4216; J2405; J3490

== ENCOUNTER 2023-12-17 15:06 | Emergency (ER) | payer BC, SELFPAY ==
[2023-12-17 15:07] VITALS: BP 139/84; PULSE 84; RESP 18; TEMP 36; O2SAT 96; BMI 26.2
[2023-12-17 15:14] VITALS: BP 132/80; PULSE 84; RESP 16; TEMP 36.4; O2SAT 97
--- NOTE | 2023-12-17 15:42 | EDS_ITS ---
HPI <JOY Shirley - Last Filed: 12/17/23 17:26> History of Present Illness Chief Complaint: Wound Check Narrative Narrative: Patient presenting today requesting that a new gastrotomy tube be placed. He has had a 20-romanian G-tube in place due to a history of throat carcinoma for several years. He last had this replaced about a year ago. Today he was walking and bent over to grab something and his clothes pulled on the tube and pulled it out. This happened about 30 minutes prior to arrival. He has no other acute complaints. PFSH <JOY Shirley - Last Filed: 12/17/23 17:26> PFSH Medical History Feeding tube dysfunction Gastrostomy tube in place History of throat cancer Lung cancer Home Medications hyoscyamine sulfate 0.125 mg/5 mL oral elixir 0.25 mg (10 mL) feeding tube Q6H PRN abdominal discomfort #473 mL 05/28/23 [Rx Last Taken Unknown] levothyroxine 100 mcg tablet 100 mcg PO DAILY 05/28/23 [History Last Taken Unknown] ondansetron HCl 4 mg/5 mL oral solution 8 mg (10 mL) feeding tube Q8H PRN nausea and vomiting #100 mL 05/28/23 [Rx Last Taken Unknown] pantoprazole 40 mg granules delayed-release for susp in packet 40 mg feeding tube DAILY #14 ea 05/28/23 [Rx Last Taken Unknown] Allergy/AdvReac Type Severity Reaction Status Date / Time metoclopramide [From Reglan] Allergy Hives Verified 12/17/23 15:07 Surgical History History of appendectomy Social History Smoking Status: Never smoker ROS <JOY Shirley - Last Filed: 12/17/23 17:26> ROS ED Constitutional Constitutional ED: Denies chills or fever(s) Cardiovascular Cardiovascular: Denies chest pain Respiratory/Chest Respiratory/Chest: Denies cough or dyspnea Gastrointestinal Gastrointestinal: Denies abdominal pain, nausea or vomiting Musculoskeletal Musculoskeletal: Denies arthralgias or myalgias Integumentary Denies rash Neurologic Neurologic: Denies weakness EXAM <JOY Shirley - Last Filed: 12/17/23 17:26> Physical Exam Const Vital Signs: 12/17/23 15:07 12/17/23 15:14 12/17/23 17:09 Temperature 96.8 F L 97.6 F L 97.4 F L Temperature Source Temporal Temporal Pulse Rate 84 84 72 Respiratory Rate 18 16 16 Blood Pressure 139/84 H 132/80 H 134/69 H Blood Pressure Mean 102 97 90 Pulse Ox 96 97 98 Oxygen Delivery Method Room Air Room Air Positive well nourished, well developed and no apparent distress General Appearance ED: well developed HEENT Reports normocephalic and head/scalp atraumatic Mouth ED: Yes moist mucous membranes normal Eyes PERRL and EOMs intact bilaterally Neck full ROM and supple Chest Wall inspection of chest normal Resp normal respiratory effort and clear to auscultation bilaterally Cardio regular rate and regular rhythm GI soft to palpation, non-tender, non-distended and no masses GI Narrative: Gastrotomy tube site near epigastrium without surrounding erythema or purulent discharge Back/Spine normal ROM and normal to inspection Extremity normal to inspection and full ROM Neuro oriented x3, CN's II-XII intact bilaterally, moves all extremities, no focal motor deficits and no sensory deficits noted Sensorium / Orientation: awake and alert Psych mental status grossly normal and thought process normal Skin no rashes or lesions noted and no wounds <Miquel Renee MD - Last Filed: 12/17/23 23:26> Physical Exam Const Vital Signs: 12/17/23 15:07 12/17/23 15:14 12/17/23 17:09 Temperature 96.8 F L 97.6 F L 97.4 F L Temperature Source Temporal Temporal Pulse Rate 84 84 72 Respiratory Rate 18 16 16 Blood Pressure 139/84 H 132/80 H 134/69 H Blood Pressure Mean 102 97 90 Pulse Ox 96 97 98 Oxygen Delivery Method Room Air Room Air MDM <JOY Shirley - Last Filed: 12/17/23 17:26> [facility] MDM Narrative Medical decision making narrative: Patient presenting due to dislodgment of his 20 Amharic PEG tube that occurred about 30 minutes prior to arrival. He otherwise has no acute complaints, he is well-appearing and in no acute distress. He has this in place due to a history of throat carcinoma. He has had his current tube in place for about a year. A 20 Amharic with 6 mL balloon was inserted without difficulty. Gastrografin KUB obtained for proper placement and appears to be in proper position without extravasation of fluid as interpreted by the attending ED physician. Patient discharged home in stable condition. Radiography X-Ray: Read by ED Physician and Read by Radiologist Diagnostic Testing: Clinical Impression(s) from Imaging Studies KUB X-Ray 12/17/23 16:20 IMPRESSION: PEG tube placement with tip in the gastric body. Electronically Signed: Devon Moreira MD at 16:44 EDT , <Miquel Renee MD - Last Filed: 12/17/23 23:26> [facility] MDM Narrative Medical decision making narrative: Patient presenting due to dislodgment of his 20 Amharic PEG tube that occurred about 30 minutes prior to arrival. He otherwise has no acute complaints, he is well-appearing and in no acute distress. He has this in place due to a history of throat carcinoma. He has had his current tube in place for about a year. A 20 Amharic with 6 mL balloon was inserted without difficulty. Gastrografin KUB obtained for proper placement and appears to be in proper position without extravasation of fluid as interpreted by the attending ED physician. Patient discharged home in stable condition. Dr. Renee: I have personally performed a face to face assessment of the patient and have reviewed the MITCH Note. I performed a substantive portion of the visit including all aspects of the following. My mccullough findings include: History is PEG tube/G-tube accidentally removed when it was caught on clothing. History of longstanding G-tube placement. Exam is afebrile. Vital signs noted. Abdomen soft nontender with normal active bowel sounds. Medical Decision Making: Replace G-tube. Check Gastrografin KUB. KUB interpreted by myself independently shows no extravasation of fluid and the tube to be in the correct place. I reviewed the radiology report which confirms my independent interpretation. Discharge. Other additions or changes: [None] Radiography Diagnostic Testing: Clinical Impression(s) from Imaging Studies KUB X-Ray 12/17/23 16:20 IMPRESSION: PEG tube placement with tip in the gastric body. Electronically Signed: Devon Moreira MD at 16:44 EDT , Discharge Plan Triage Chief Complaint: Wound Check ED Midlevel Provider: Yael Arias ED Provider: Miquel Renee Dx/Rx/DC Orders Clinical Impression: Gastrojejunostomy tube dislodgement Instructions: ED Feeding Tube Replacement Prescriptions: No Action levothyroxine 100 mcg tablet 100 mcg PO DAILY ondansetron HCl 4 mg/5 mL solution 8 mg feeding tube Q8H PRN (Reason: nausea and vomiting) Qty: 100 0RF pantoprazole [address] for susp in packet 40 mg feeding tube DAILY Qty: 14 0RF hyoscyamine sulfate 0.125 mg/5 mL elixir 0.25 mg feeding tube Q6H PRN (Reason: abdominal discomfort) Qty: 473 0RF Primary Care Provider: Mary Hill Referrals: Mary Hill MD [Primary Care Provider] - 5-7 Days Activity Restrictions/Additional Instructions: Follow-up with your PCP and return for any worsening of your symptoms. Disposition Disposition: Home, Self Care Discharge Date/Time: 12/17/23 17:10
--- NOTE | 2023-12-17 16:20 | RAD_ITS ---
STUDY: X-RAY - ABDOMEN/PELVIS REASON FOR EXAM: Male, 58 years old. g-tube placement -- With gastrografin TECHNIQUE: KUB COMPARISON: None. FINDINGS: Normal visualized lung bases. There is an unremarkable bowel gas pattern. There is no demonstrated free abdominal air. The visualized liver, spleen and kidneys are grossly normal in size and morphology. PEG tube noted projecting over the gastric body. There is contrast noted within the stomach and proximal small bowel following injection. There is no extraluminal extravasation observed. Normal visualized osseous structures. RAD/Abdomen Single View IMPRESSION: PEG tube placement with tip in the gastric body. Electronically Signed: Devon Moreira MD at 16:44 EDT ,
[2023-12-17 17:09] VITALS: BP 134/69; PULSE 72; RESP 16; TEMP 36.3; O2SAT 98
== END 2023-12-17 17:10 | disposition home or self-care (01) ==
LOC: ED 16:59
PROVIDERS: Emergency Provider Emergency Medicine; PCP Family Medicine; Visit Provider Emergency Medicine
DX: K94.29 Other complications of gastrostomy (principal); Z85.118 Personal history of other malignant neoplasm of bronchus and lung; Z85.89 Personal history of malignant neoplasm of other organs and systems; Z90.49 Acquired absence of other specified parts of digestive tract
CPT/HCPCS: 43762; 74018; 99282

== ENCOUNTER 2024-03-13 14:33 | Emergency (ER) | payer BC, SELFPAY ==
[2024-03-13 14:34] VITALS: BP 121/82; PULSE 109; RESP 16; TEMP 36.8; O2SAT 96; BMI 25.7
[2024-03-13 14:37] VITALS: BP 121/82; PULSE 109; RESP 16; TEMP 36.8; O2SAT 96
--- NOTE | 2024-03-13 15:01 | RAD_ITS ---
STUDY: X-RAY CHEST REASON FOR EXAM: Male, 59 years old. dyspnea TECHNIQUE: PA and lateral views of the chest. COMPARISON: 09/18/2018 FINDINGS: There is hyperinflation of the lungs consistent with chronic obstructive lung disease (COPD). There is no demonstrated pleural abnormality. Normal size heart. Normal mediastinum and dyan. Normal visualized pulmonary arteries. Normal visualized aortic arch and descending thoracic aorta. Normal visualized thoracic spine. Normal visualized ribs, clavicles, and shoulders. There is no demonstrated abnormality of the visualized soft tissue structures of the upper abdomen. RAD/Chest PA and Lateral IMPRESSION: Emphysema without pneumonia or atelectasis. Electronically Signed: Zachariah Artis MD at 16:07 EDT ,
[2024-03-13 16:00] VITALS: BP 138/77; PULSE 108; RESP 18; TEMP 37.5; O2SAT 95
--- NOTE | 2024-03-13 16:18 | ED.VIS.DYS ---
HPI History of Present Illness Chief Complaint: Shortness of Breath Narrative Narrative: 59-year-old male past medical history of PEG tube, presents to the emergency department because he states I think I aspirated. Although he has a PEG tube, he states that his doctors told him that he should be able to start eating or at least try new foods. Sunday evening, he had some applesauce, and has become short of breath. Is also been coughing a lot after vomiting. He is unsure if he aspirated. He states that he gets sick twice a year in his usual primary care provider prescribed him a Z-Derek. He saw a different primary care provider today, who told him to come to the emergency department. He is concerned because he has been coughing up brown phlegm. [facility] Medical History Gastrostomy tube in place Feeding tube dysfunction Lung cancer History of throat cancer Home Medications ?Medication ?Instructions ?Recorded ?Last Taken ?Type hyoscyamine sulfate 0.125 mg/5 mL 0.25 mg (10 mL) feeding tube Q6H 05/28/23 Unknown Rx oral elixir PRN abdominal discomfort #473 mL levothyroxine 100 mcg tablet 100 mcg PO DAILY 05/28/23 Unknown History ondansetron HCl 4 mg/5 mL oral 8 mg (10 mL) feeding tube Q8H PRN 05/28/23 Unknown Rx solution nausea and vomiting #100 mL pantoprazole 40 mg granules 40 mg feeding tube DAILY #14 ea 05/28/23 Unknown Rx delayed-release for susp in packet albuterol sulfate 90 mcg/actuation 1 - 2 puff inhalation Q4H PRN PRN 03/13/24 Unknown Rx aerosol inhaler (Ventolin HFA) Wheezing #1 ea azithromycin 250 mg tablet See Rx Instructions PO .COMPLEX #6 03/13/24 Unknown Rx tabs Allergy/AdvReac Type Severity Reaction Status Date / Time metoclopramide (From Reglan) Allergy Hives Verified 03/13/24 14:34 Surgical History History of appendectomy Social History Smoking Status: Never smoker ROS ROS ED ROS Narrative Constitutional: No fever, no chills. HEENT: No sore throat. No neck pain. No loss of vision. No rhinorrhea. Cardiovascular: No chest pain. No palpitations. No pedal edema. Respiratory: Positive cough, positive shortness of breath. Abdominal: No abdominal pain. Nausea and vomiting resolved. Genitourinary: No dysuria. No hematuria. Musculoskeletal: No myalgias. No arthralgias. Neurologic: No headaches. No dizziness. No lightheadedness. Skin: No rash. No change in color. Psychiatric: No depression. No anxiety. EXAM Physical Exam Narrative Exam Narrative: Afebrile. Vital signs noted. Nontoxic-appearing. Mild tachycardia in the 109 bpm. Lungs are clear to auscultation bilaterally without wheezing or rhonchi, but he has slightly prolonged expiratory phase. Abdomen soft and nontender with positive PEG tube in place. No pedal edema. Const Vital Signs: 03/13/24 14:34 03/13/24 14:37 03/13/24 16:00 Temperature 98.2 F 98.2 F 99.5 F H Temperature Source Temporal Temporal Oral Pulse Rate 109 H 109 H 108 H Respiratory Rate 16 16 18 Respiratory Pattern Blood Pressure 121/82 H 121/82 H 138/77 H Blood Pressure Mean 95 95 97 Pulse Ox 96 96 95 Oxygen Delivery Method Room Air Room Air Room Air 03/13/24 16:29 Temperature Temperature Source Pulse Rate 100 Respiratory Rate 15 Respiratory Pattern Normal Blood Pressure Blood Pressure Mean Pulse Ox Oxygen Delivery Method MDM MDM MDM Narrative Medical decision making narrative: In the differential diagnosis is aspiration pneumonia versus pneumothorax versus pulmonary embolism. I have low suspicion for PE based on the history and physical. Chest x-ray obtained and interpreted by myself independently as no evidence of pneumothorax, no pneumonia. I reviewed the radiology report which confirms my independent interpretation and comments on emphysema without pneumonia or atelectasis. He was given an albuterol aerosolized treatment. He states when he spits up/coughs up brown mucus, he needs a Z-Derek. I wrote him a prescription for a Z-Derek and an albuterol inhaler, and he will follow-up with his primary care provider. I do not feel that he needs antibiotics for aspiration pneumonia. I do not feel he requires laboratory work either. Repeat examination after aerosol treatment at approximately 1650 shows him resting comfortably. Feels slightly improved. Return instructions were reviewed. Disposition is discharged home in stable condition. Radiography Diagnostic Testing: Clinical Impression(s) from Imaging Studies Chest X-Ray 03/13/24 15:01 IMPRESSION: Emphysema without pneumonia or atelectasis. Electronically Signed: Zachariah Artis MD at 16:07 EDT , Discharge Plan Triage Chief Complaint: Shortness of Breath ED Provider: Miquel Renee Dx/Rx/DC Orders Clinical Impression: Bronchitis, SOB (shortness of breath) Instructions: ED Bronchitis with Wheezing (Adult), ED Dyspnea Prescriptions: New albuterol sulfate [Ventolin HFA] 90 mcg/actuation HFA aerosol inhaler 1 - 2 puff inhalation Q4H PRN PRN (Reason: Wheezing) Qty: 1 0RF azithromycin 250 mg tablet See Rx Instructions .ROUTE .COMPLEX Qty: 6 0RF Rx Instructions: For 250 mg dose pack: take 500 mg today (day 1), then 250 mg for 4 days (days 2-5) No Action levothyroxine 100 mcg tablet 100 mcg PO DAILY ondansetron HCl 4 mg/5 mL solution 8 mg feeding tube Q8H PRN (Reason: nausea and vomiting) Qty: 100 0RF pantoprazole [address] for susp in packet 40 mg feeding tube DAILY Qty: 14 0RF hyoscyamine sulfate 0.125 mg/5 mL elixir 0.25 mg feeding tube Q6H PRN (Reason: abdominal discomfort) Qty: 473 0RF Primary Care Provider: Mary Hill Referrals: Mary Hill MD [Primary Care Provider] - 1 Week if not improving Print Language: Spanish Disposition Disposition: Home, Self Care
[2024-03-13 16:29] VITALS: PULSE 100; RESP 15
[2024-03-13] MEDS: Albuterol 2.5 MG/3 ML VIAL.NEB. INHALATION (16:29)
[2024-03-13 16:56] VITALS: O2SAT 95
[2024-03-13 16:57] VITALS: BP 130/66; PULSE 99; RESP 17; TEMP 37.5; O2SAT 95
== END 2024-03-13 17:00 | disposition home or self-care (01) ==
LOC: ED 17:22
PROVIDERS: Emergency Provider Emergency Medicine; PCP Family Medicine; Visit Provider Emergency Medicine
DX: J40 Bronchitis, not specified as acute or chronic (principal); Z93.1 Gastrostomy status; R06.02 Shortness of breath; Z85.118 Personal history of other malignant neoplasm of bronchus and lung; Z90.49 Acquired absence of other specified parts of digestive tract
CPT/HCPCS: 71046; 94640; 99282

== ENCOUNTER 2024-07-04 08:30 | Outpatient (RCR) | payer BC, SELFPAY ==
--- NOTE | 2024-06-25 09:27 | HP.PTEVAL_ITS ---
Patient's Visit Information Visit Information Visit Information: JOANA DEE is a 59 year old M referred to Physical Therapy by TA ALFONSO with a diagnosis of Trismus. Date of Evaluation: 06/25/24 Physical Therapist: Skip Felipe, DANIEL, OCS, CSCS Visit Plan Frequency: 2x /Week Duration: 4-6 Weeks Plan: 2x/week for 4-6 weeks for. IE: jaw PROm openoing and deviation 10x, scap circles 10x, cervical PROM with OP rotation 10x all 2x/day with pics Please treat with 1. MH to neck adn jaw followed by STM and DTR to R subocc muscles and R neck scalenes and R TMJ masseter area, then mobs to R TMJ opening and deviaiton with PROM, cervical stretching, progress to cervical and scap strengthening and jaw isometrics. all to HEP as helpful. Subjective Subjective: trouble opening jaw. 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 It came back in Junend had chemo and radiation which made it tight on L jaw and into back of neck. Has a feeding tube for the last 10 yrs. Was tolerable prior to Ca return for talking and pain. R side feels stiff and hard to open. Pain in neck and R TMJ 3-4 /10 intermittently, worse with positioning of neck or if talks more. Also R posterior YIN intermittently. Talking is worse than a year ago and people have dificulty understanding him. Yawning make him hurt R side. Sleeping is so-so and hard to find comfortable positon sleeping in recliner often. Disability in October of this year. Chemo and radiation are over and will have biopsy next week. Hobbies: walks and homeschooling dtr. Vistiing family friends. Exercises tongue movements, stretch neck into flexion, neck rotation, pry open and breathing device. Seems like stretches help. Pain R jaw and neck: Pain Intensity (Out of 10): 1 Pain Intensity Range: 0 and 4 Objective Objective: cervical AROM rotation 34 B with R sided tightness, SB L 10 and R 20 with R sided tightness, ext 30 with r sided tightness. retraction is limited. jaw dev R 8 mm and L 4 mm, opening 10 mm. PROM opening maybe to 11 mm very hard end feel, deviation firm B also in PROM Scapular AROM R limited in retraction and elevation but PROM is full, tends to not move it actively. UE AROM is WFL B but scap compensation on R with elevation of shoulder. elbow and wrist are WFL. reflexes 2/3 bi and tri, 1/3 jaw sensation is diminished slightly and numby to light touch in R posterior TMJ area in R sided subocc and at ext occipital protuberance R, Very hard scar tissuen in this area. tightness continues in r UT and parapsinals and rhomboid gently but not overly tender except in EOP area on R. strength R scap and shoulder elevation 4- vs 4 on L. elbow flex/ext 4 B no pain, wrist 4 B. thumb extension 4 B. - c/s compression arthrokinematic movement at jaw is firm end feel nearly hard and difficult to relax on R. Goals Goal 1:: jaw opening 20 mm and deviation to 8 B to help with jaw moevement comfort. Goal Time Frame: 4-6 Weeks Goal 2:: Pain in r neck and TMJ 755 improved to 1/10 at worst Goal Time Frame: 4-6 Weeks Goal 3:: I appropriate HEP to limit future pain and maximize ROM fucniton including neck stretches and jaw ex adn strength jaw and neck and upper half. Goal Time Frame: 4-6 Weeks Goal 4:: sleep without discomfort R jaw Goal Time Frame: 4-6 Weeks Rehabilitation Potential Physical Therapy Diagnosis: lack of jaw ROM and comfort limting funciton at home Rehabilitation Potential: Questionable Anticipated Interventions Patient/Client Instruction: Educate patient on: Plan of Care For the Purpose of:: To decrease pain, To increase ROM, To improve nutrient delivery to tissue, To improve muscle performance and motor function and To improve gait and locomotor functions Therapeutic Exercise to Include: Strength training, Postural training, Passive ROM, Active ROM and Scapular Strength/Stabilization For the Purpose of:: To decrease pain, To increase ROM, To improve nutrient delivery to tissue, To improve muscle performance and motor function and To improve gait and locomotor functions Manual Therapy Techniques to Include: Mobilization, Passive ROM and Soft tissue mobilization For the Purpose of:: To decrease pain, To increase ROM, To improve nutrient delivery to tissue, To improve muscle performance and motor function and To improve gait and locomotor functions Thermo therapy (hot pack): Yes For the Purpose of:: To decrease swelling/inflammation Text: Thank you for the opportunity to evaluate your patient. For Medicare and Medicare HMO plans, please review the plan of care and approve it. It will need to be FAXED BACK to us at [phone] for Medicare purposes. For Medicare only, by signing this I certify the plan of care. Please let me know if there are questions or concerns regarding this plan of care. Physician Signatu re: Date:
--- NOTE | 2024-08-12 12:06 | HP.PT.NRP ---
Patient Information Patient Information: JOANA DEE was seen in my office for initial evaluation on 06/25/24. The following Plan of Care was established for this patient: POC Established Initial Frequency: 2x /Week Initial Duration: 4-6 Weeks Anticipated Interventions Patient/Client Instruction: Educate patient on: Plan of Care For the Purpose of:: To decrease pain, To increase ROM, To improve nutrient delivery to tissue, To improve muscle performance and motor function and To improve gait and locomotor functions Therapeutic Exercise to Include: Strength training, Postural training, Passive ROM, Active ROM and Scapular Strength/Stabilization For the Purpose of:: To decrease pain, To increase ROM, To improve nutrient delivery to tissue, To improve muscle performance and motor function and To improve gait and locomotor functions Manual Therapy Techniques to Include: Mobilization, Passive ROM and Soft tissue mobilization For the Purpose of:: To decrease pain, To increase ROM, To improve nutrient delivery to tissue, To improve muscle performance and motor function and To improve gait and locomotor functions Thermo therapy (hot pack): Yes For the Purpose of:: To decrease swelling/inflammation Last Seen Last Seen: This patient was last seen in our office 07/04/24. Pertinent comments regarding their Physical therapy will appear below: Pt seen 3 visits of POC but cancelled the remaining due to illness. At this point, it has been over 4 weeks and I will discontinue due to nonattendance. At this point I will be discontinuing this patient from physical therapy. I would be happy to see this patient again in the future if found appropriate by the physician. Thank you! Skip Felipe, DPT, OCS, CSCS
== END 2024-07-04 19:00 | disposition home or self-care (01) ==
LOC: PT 08:30
PROVIDERS: PCP Family Medicine
DX: R25.2 Cramp and spasm (principal)
CPT/HCPCS: 97110; 97140; 97162